=== PATIENT | female | born 1970 | race Caucasian/White ===

== ENCOUNTER 2020-01-22 06:30 | Observation (INO) | payer OTHER ==
[2020-01-22] MEDS ORDERED: ASPIRIN 81 MG PO STA (06:42)
[2020-01-22] MEDS ORDERED: NITROGLYCERIN OINT 1 INCH/GM PACKET TOPICAL STA (06:50)
--- NOTE | 2020-01-22 06:58 | ED ---
Chest Pain HPI - General Chief Complaint: Chest Pain Stated Complaint: Chest Pain Time Seen by Provider: 01/22/20 06:35 Source: patient, RN notes reviewed Mode of arrival: ambulatory Limitations: no limitations - History of Present Illness Initial Comments: This a 49-year-old female presents emergency Department chief complaint of chest pain. Patient states started around 4 AM this morning when she woke up. Patient states his pain is different and she normally has. She states she does have some chest discomfort over some she had a cardiac arrest in July 2018. Patient states that she initially went to the hospital at that time for chest pain and high blood pressure. She was sent home and subsequently pancreatic wrist. Patient states that she did have a cardiac cath in which he found no significant cause for her cardiac arrest. Patient disposition is a daily smoker, history of hypertension. She did take her blood pressure medication this morning. Patient denies any significant leg swelling, leg pain denies any fevers or chills. Patient states that she has some nausea with VOMITING. No diaphoresis. Denies any back pain. - Related Data Home Medications Medication Instructions Recorded Confirmed Aspirin EC [Ecotrin Low Dose] 81 mg PO DAILY 01/22/20 01/22/20 Atorvastatin [Lipitor] 10 mg PO DAILY 01/22/20 01/22/20 Carvedilol [Coreg] 3.125 mg PO BID 01/22/20 01/22/20 Loratadine [Claritin] 10 mg PO DAILY 01/22/20 01/22/20 lisinopriL [Zestril] 20 mg PO DAILY 01/22/20 01/22/20 Allergies Allergy/AdvReac Type Severity Reaction Status Date / Time No Known Allergies Allergy Verified 01/22/20 07:57 Review of Systems ROS Statement: Those systems with pertinent positive or pertinent negative responses have been documented in the HPI. ROS Other: All systems not noted in ROS Statement are negative. EKG Findings - EKG Comments: EKG Findings:: EKG performed at 6:44 normal sinus rhythm rate of 77 VA 162 QRS 78 QT/QTC 366/414 was noted Q waves in V1 and V2 Past Medical History Past Medical History: Hypertension Additional Past Medical History / Comment(s): cardiac arrest 2019. History of Any Multi-Drug Resistant Organisms: None Reported Past Surgical History: Cholecystectomy, Orthopedic Surgery Past Psychological History: No Psychological Hx Reported Smoking Status: Current every day smoker Past Alcohol Use History: Occasional Past Drug Use History: None Reported General Exam Limitations: no limitations General appearance: alert, in no apparent distress Head exam: Present: atraumatic, normocephalic, normal inspection Eye exam: Present: normal appearance, PERRL, EOMI. Absent: scleral icterus, conjunctival injection, periorbital swelling ENT exam: Present: normal exam, normal oropharynx, mucous membranes moist, TM's normal bilaterally Neck exam: Present: normal inspection, full ROM. Absent: tenderness, meningismus, lymphadenopathy Respiratory exam: Present: normal lung sounds bilaterally. Absent: respiratory distress, wheezes, rales, rhonchi, stridor Cardiovascular Exam: Present: regular rate, normal rhythm, normal heart sounds. Absent: systolic murmur, diastolic murmur, rubs, gallop, clicks GI/Abdominal exam: Present: soft, normal bowel sounds. Absent: distended, tenderness, guarding, rebound, rigid Back exam: Absent: CVA tenderness (R), CVA tenderness (L) Neurological exam: Present: alert, oriented X3 Skin exam: Present: warm, dry, intact, normal color. Absent: rash Course Vital Signs 01/22/20 01/22/20 06:34 07:00 Temperature 97.7 F Pulse Rate 84 84 Respiratory 18 16 Rate Blood Pressure 142/95 133/89 O2 Sat by Pulse 100 97 Oximetry Chest Pain [facility] EKG showed evidence of Q waves. Patient does have a Cardoza history including cardiac arrest, smoking and hypertension. Patient will be admitted for cardiac obs at this point repeat troponins and started on heparin. Disposition Clinical Impression: Chest pain Disposition: ADMITTED IP TO THIS HOSP Condition: Fair Referrals: None,Stated [Primary Care Provider] - 1-2 days
[2020-01-22 07:18] LABS: Basophils # (A) 0.1 k/uL (0-0.2); Basophils % (A) 1 %; Eosinophils # (A) 0.2 k/uL (0-0.7); Eosinophils % (A) 2 %; HCT 40.4 % (34.0-46.0); HGB 12.6 gm/dL (11.4-16.0); Hypochromasia Slight; Lymphocytes # (A) 1.5 k/uL (1.0-4.8); Lymphocytes % (A) 18 %; MCH 26.3 pg (25.0-35.0); MCHC 31.3 g/dL (31.0-37.0); Mean Platelet Volume 8.4; Monocytes # (A) 0.5 k/uL (0-1.0); Monocytes % (A) 6 %; Neutrophils # (A) 5.8 k/uL (1.3-7.7); Neutrophils % (A) 71 %; Platelet Count 312 k/uL (150-450); RBC 4.81 m/uL (3.80-5.40); WBC 8.2 k/uL (3.8-10.6)
[2020-01-22 07:26] LABS: INR 0.9 (<1.2); Partial Thromboplastin Time 23.7 sec (22.0-30.0); Prothrombin Time 9.4 sec (9.0-12.0)
--- NOTE | 2020-01-22 07:26 | XR ---
EXAMINATION TYPE: XR chest 2V DATE OF EXAM: 01/22/2020 COMPARISON: NONE TECHNIQUE: PA and lateral views submitted. HISTORY: Chest pain FINDINGS: The lungs are clear and there is no pneumothorax, pleural effusion, or focal pneumonia. No overt shannon lure. Tiny nodule bilateral upper lobe may be related to tiny granuloma. Calcification along the righ t humeral head can be associated with calcific tendinosis and there is sclerosis of the left humeral head likely related to bone island. Hypertrophic change of the vertebral column. Mild hyperexpansion correlate for COPD or asthma. IMPRESSION: 1. No acute process. Multiple tiny nodules within bilateral upper lobes most likely on the basis of g ranuloma. Short-term follow-up CT chest recommended.
[2020-01-22 07:27] LABS: ALT 64 U/L (4-34); AST 69 U/L (14-36); African American GFR (CKD) >90 (>60 ml/min/1.73 sqM); Albumin 4.3 g/dL (3.5-5.0); Alkaline Phosphatase 57 U/L (38-126); Anion Gap 8 mmol/L; Blood Urea Nitrogen 8 mg/dL (7-17); Calcium 8.9 mg/dL (8.4-10.2); Carbon Dioxide 27 mmol/L (22-30); Chloride 104 mmol/L (98-107); Glucose 144 mg/dL (74-99); Non-African American GFR(CKD) >90 (>60 ml/min/1.73 sqM); Potassium 4.5 mmol/L (3.5-5.1); Sodium 139 mmol/L (137-145); Total Bilirubin 0.5 mg/dL (0.2-1.3); Total Protein 7.2 g/dL (6.3-8.2)
[2020-01-22] MEDS ORDERED: HEPARIN SODIUM,PORCINE 5,000 UNIT/ML 1 ML VIAL IV PRN (08:24)
[2020-01-22] MEDS ORDERED: NITROGLYCERIN SL TABS 0.4 MG TAB SUBLINGUAL PRN (08:24)
[2020-01-22] MEDS ORDERED: HEPARIN SODIUM,PORCINE 5,000 UNIT/ML 1 ML VIAL IV ONE (08:24)
[2020-01-22] MEDS ORDERED: HEPARIN SOD,PORK IN 0.45% NACL 25,000 UNIT in 0.45% NACL 1 250ML.BAG IV SCH (08:30)
--- NOTE | 2020-01-22 13:31 | P.CRDCN ---
<Radha Patterson - Last Filed: 01/22/20 13:10> History of Present Illness History of present illness: HISTORY OF PRESENTING ILLNESS This is a pleasant 49-year-old female past medical history significant for cardiac arrest in July 2018 with multiple shocks according to the patient. 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 She then states she was in a coma for 2 weeks and immediately upon discharge she moved to [place] and established with a activities therapist there by the name of Dr. Braden. About 4 weeks ago she moved back to [place]. According to her up until this morning she has been asymptomatic from a cardiac perspective. This morning she woke up and felt a discomfort in her chest described as a pressure. It lasted around 30 minutes. There was no radiation to the arm, back, neck or jaw. She denies associated shortness of breath, dizziness, palpitations, nausea, vomiting or diaphoresis. Her symptoms have subsided. DIAGNOSTICS EKG reveals sinus mechanism with poor R-wave progression. Chest xray multiple tiny nodules likely granulomatous. Laboratory reviewed, CBC unremarkable, sodium 139, potassium 4.5, creatinine 0.5, AST 69, ALT 64, cardiac enzymes negative 2 and an T proBNP 68. Current cardiac medications include lisinopril 20 mg daily, atorvastatin 20 mg daily, aspirin 81 mg daily and coronary 3.125 mg twice a day. REVIEW OF SYSTEMS At the time of my exam: CONSTITUTIONAL: Denies fever or chills. CARDIOVASCULAR: Denies chest pain, shortness of breath, orthopnea, PND or palpitations. RESPIRATORY: Denies cough. GASTROINTESTINAL: Denies abdominal pain, diarrhea, constipation, nausea or vomiting. MUSCULOSKELETAL: Denies myalgias. NEUROLOGIC: Denies numbness, tingling or weakness. ENDOCRINE: Denies fatigue, weight change, polydipsia or polyurina. GENITOURINARY: Denies burning, hematuria or urgency with micturation. HEMATOLOGIC: Denies history of anemia or bleeding. PHYSICAL EXAMINATION Blood pressure 149/83 heart rate 88 afebrile and maintaining oxygen saturation on room air. CONSTITUTIONAL: No apparent distress. HEENT: Head is normocephalic. Pupils are equal, round. Sclerae anicteric. Mucous membranes of the mouth are moist. No JVD. No carotid bruit. CHEST EXAMINATION: Lungs are clear to auscultation. No chest wall tenderness is noted on palpation or with deep breathing. HEART EXAMINATION: Regular rate and rhythm. S1, S2 heard. Soft systolic ejection murmur at the base, no gallops or rub. ABDOMEN: Soft, nontender. Positive bowel sounds. EXTREMITIES: 2+ peripheral pulses, no lower extremity edema and no calf tenderness. NEUROLOGIC EXAMINATION: Patient is awake, alert and oriented x3. ASSESSMENT Chest pain, atypical for angina. Hypertension Dyslipidemia Chronic nicotine dependence History of cardiac arrest, exact details unavailable PLAN Request records from [facility] in [place] from July 2018. Obtain 2D echocardiogram and doppler study to assess cardiac structure and function. Continue to obtain serial enzymes to rule out an acute event. Resume coreg, atorvastatin, lisinopril and aspirin as previously ordered. Further recommendations to follow. Thank you kindly for this consultation. Nurse Practitioner note has been reviewed, I agree with a documented findings and plan of care. Patient was seen and examined. Past Medical History Past Medical History: Chest Pain / Angina, Hypertension Additional Past Medical History / Comment(s): Pt states went to ER with chest pain/HTN and sent home then went to work and had a cardiac arrest in 2019/pt states she had echo and cardiac cath-all normal-no cause ever found for arrest, sinus issues. History of Any Multi-Drug Resistant Organisms: None Reported Past Surgical History: Back Surgery, Cholecystectomy, Heart Catheterization, Orthopedic Surgery, Tubal Ligation Additional Past Surgical History / Comment(s): 2019 normal cardiac cath, L$-L% discectomy Smoking Status: Current every day smoker - Past Family History Father Family Medical History: Cancer Additional Family Medical History / Comment(s): Father at the age of 37 yrs from cancer from agent orange exposure in [place] per pt. Mother Family Medical History: Congestive Heart Failure (CHF), COPD, Myocardial Infarction ([place]) Additional Family Medical History / Comment(s): Mother had a [place] at the age of 60 yrs. She is 67yrs old. Medications and Allergies Home Medications Medication Instructions Recorded Confirmed Type Aspirin EC [Ecotrin Low Dose] 81 mg PO DAILY 01/22/20 01/22/20 History Atorvastatin [Lipitor] 10 mg PO DAILY 01/22/20 01/22/20 History Carvedilol [Coreg] 3.125 mg PO BID 01/22/20 01/22/20 History Loratadine [Claritin] 10 mg PO DAILY 01/22/20 01/22/20 History lisinopriL [Zestril] 20 mg PO DAILY 01/22/20 01/22/20 History Levofloxacin [Levaquin] 500 mg PO Q24H #7 tab 01/23/20 Rx predniSONE See Taper PO DIRECTED #30 tab 01/23/20 Rx Allergies Allergy/AdvReac Type Severity Reaction Status Date / Time No Known Allergies Allergy Verified 01/22/20 07:57 Physical Exam Vitals: Vital Signs Temp Pulse Pulse Resp BP BP Pulse Ox 01/22/20 10:12 98 F 88 18 149/83 98 01/22/20 09:28 98.4 F 71 18 132/94 95 01/22/20 07:00 84 16 133/89 97 01/22/20 06:34 97.7 F 84 18 142/95 100 Intake and Output 01/21/20 01/22/20 01/22/20 22:59 06:59 14:59 Intake Total 240 Balance 240 Intake: Oral 240 Other: Weight 67.132 kg 67.132 kg Results 01/22/20 07:09 01/22/20 07:09 Cardiac Enzymes 01/22/20 01/22/20 01/22/20 Range/Units 07:09 07:09 10:39 AST 69 H (14-36) U/L Troponin I <0.012 <0.012 (0.000-0.034) ng/mL Coagulation 01/22/20 Range/Units 07:09 PT 9.4 (9.0-12.0) sec APTT 23.7 (22.0-30.0) sec CBC 01/22/20 Range/Units 07:09 WBC 8.2 (3.8-10.6) k/uL RBC 4.81 (3.80-5.40) m/uL Hgb 12.6 (11.4-16.0) gm/dL Hct 40.4 (34.0-46.0) % Plt Count 312 (150-450) k/uL Comprehensive Metabolic Panel 01/22/20 Range/Units 07:09 Sodium 139 (137-145) mmol/L Potassium 4.5 (3.5-5.1) mmol/L Chloride 104 (98-107) mmol/L Carbon Dioxide 27 (22-30) mmol/L BUN 8 (7-17) mg/dL Creatinine 0.50 L (0.52-1.04) mg/dL Glucose 144 H (74-99) mg/dL Calcium 8.9 (8.4-10.2) mg/dL AST 69 H (14-36) U/L ALT 64 H (4-34) U/L Alkaline Phosphatase 57 (38-126) U/L Total Protein 7.2 (6.3-8.2) g/dL Albumin 4.3 (3.5-5.0) g/dL Current Medications Generic Name Dose Route Start Last Admin Trade Name Freq PRN Reason Stop Dose Admin Aspirin 325 mg 01/23/20 09:00 Aspirin PO DAILY KRISTINA Heparin Sodium (Porcine) 0 unit 01/22/20 08:24 Heparin IV Q6HR PRN Low PTT Protocol Nitroglycerin 0.4 mg 01/22/20 08:24 Nitrostat SUBLINGUAL Q5M PRN Chest Pain Intake and Output 01/21/20 01/22/20 01/22/20 22:59 06:59 14:59 Intake Total 240 Balance 240 Intake: Oral 240 Other: Weight 67.132 kg 67.132 kg Patient Weight 01/23/20 06:59 Weight 67.132 kg 01/22/20 07:09 01/22/20 07:09 <John Coles - Last Filed: 01/26/20 14:56> Results 01/23/20 06:08 01/23/20 06:08 01/23/20 06:08 01/23/20 06:08
[2020-01-22] MEDS ORDERED: HYDROcodone/APAP 5-325MG 1 EACH TAB PO PRN (14:46)
[2020-01-22] MEDS ORDERED: ALPRAZolam 0.25 MG TAB PO PRN (14:46)
[2020-01-22] MEDS ORDERED: HYDROmorphone 0.5 MG/0.5 ML SYRINGE IVP PRN (14:46)
[2020-01-22] MEDS ORDERED: TEMAZEPAM 15 MG CAP PO PRN (14:46)
--- NOTE | 2020-01-22 15:01 | CT ---
EXAMINATION TYPE: CT chest wo con DATE OF EXAM: 01/22/2020 COMPARISON: Chest x-ray earlier today HISTORY: cough, chest tightness CT DLP: 503 mGycm. Automated Exposure Control for Dose Reduction was Utilized. TECHNIQUE: CT scan of the thorax is performed without IV contrast. FINDINGS: LUNGS: There are multifocal areas of groundglass nodularity throughout the upper and lower lungs bila terally. There is background mild underlying edematous change suspected with several small calcified nodules 4 granulomas scattered throughout bilateral lungs greater in the upper lungs. Few small nonca lcified micronodules, for reference right lower lobe posteriorly axial image 39. No pleural effusion or pneumothorax seen bilaterally. MEDIASTINUM: Lack of IV contrast is noted to limit evaluation for mediastinal and especially hilar a denopathy. There are no definitive greater than 1 cm hilar or mediastinal lymph nodes. No cardiomeg eliseo or pericardial effusion is seen. Coronary artery calcification proximal to mid LAD axial image 28 noted. Mild calcification at level of aortic valve. OTHER: Liver are diffusely low dense consistent with mild diffuse fatty infiltration. Cholecystectomy clips are seen. IMPRESSION: 1. Confirmation of scattered small bilateral calcified nodules or granulomas presumed product of old granulomatous disease. 2. Multifocal areas of groundglass opacity bilaterally likely reflecting multifocal alveolar edema gi colt patient's history of cardiac arrest. Areas of underlying acute infiltrate cannot be excluded. Cor relate clinically. Mild underlying emphysematous change noted.
--- NOTE | 2020-01-22 15:51 | HP ---
HISTORY AND PHYSICAL CHIEF COMPLAINT: Chest pain. HISTORY OF PRESENT ILLNESS: This 49-year-old woman with a past medical history of multiple medical problems, including chest pain, history of hypertension, history of back surgery, cholecystomy, not being followed by a primary physician in the outpatient setting, recently moved back to [place] from [place]. The patient was having chest pain yesterday at 4:00 which was felt in the anterior part of the chest, mild to moderate in intensity, which was a pressure type of squeezing pain. The patient came to [facility] and was admitted for further evaluation and treatment. EKG showed nonspecific ST-T changes. Troponins were negative. AST and ALT were elevated. Patient also has a history of cardiac arrest last year and the patient apparently had chest pain after going home. Patient had cardiac arrest and after bystander resuscitation, patient was shocked and patient was in the hospital for more than 2 weeks in the ICU. The patient also had cardiac catheterization at that time. Cardiac catheterization was normal. Apparently the ejection fraction was found to be 30% and non-ischemic cardiomyopathy was suspected at that time. There is no history of any fever, rigor or chills. No history of headache, loss of consciousness, seizures at this time. PAST MEDICAL HISTORY: History of cardiac arrest, possibly cardiomyopathy, hypertension, history of chest pain, history of cardiac catheterization. HOME MEDICATIONS: 1. Claritin 10 mg daily. 2. Coreg 3.125 mg b.i.d. 3. Ecotrin 81 mg daily. 4. Zestril 20 mg daily. 5. Lipitor 10 mg daily. ALLERGIES: NONE. FAMILY HISTORY: History of cancer in the family and Agent [place] exposure. SOCIAL HISTORY: History of alcohol. REVIEW OF SYSTEMS: ENT: No diminished hearing. No diminished vision. CARDIOVASCULAR SYSTEM: As mentioned earlier. RESPIRATORY SYSTEM: As mentioned earlier. GI: No nausea, vomiting. : No dysuria or retention. NERVOUS SYSTEM: No numbness, weakness. ALLERGY/IMMUNOLOGY: No asthma, hayfever. MUSCULOSKELETAL: As mentioned earlier. HEMATOLOGY/ONCOLOGY: No history of anemia. ENDOCRINE: No history of diabetes, hypothyroidism. CONSTITUTIONAL: As mentioned earlier. DERMATOLOGY: Negative. RHEUMATOLOGY: Negative. PSYCHIATRY: As mentioned earlier. PHYSICAL EXAMINATION: Patient alert and oriented x3. Pulse is 88, blood pressure 149/83, respiration 18, temperature 98 degrees, pulse ox 98% on room air. HEENT: Conjunctivae normal. NECK: No jugular venous distention. CARDIOVASCULAR SYSTEM: S1, S2 muffled. RESPIRATORY SYSTEM: Breath sounds diminished at the bases. No rhonchi. No crackles. ABDOMEN: Soft, non-tender. No mass palpable. LEGS: No edema. No swelling. NERVOUS SYSTEM: Higher functions as mentioned earlier. Moves all 4 limbs. No focal motor or sensory deficit. LYMPHATICS: No lymph node palpable in neck, axillae or groin. SKIN: No ulcer, rash, bleeding. JOINTS: No active deforming arthropathy. LABS: CBC within normal limits. Glucose 144. AST 69, ALT 464. Chest x-ray and EKG reviewed personally. Troponin is noted. ASSESSMENT: 1. Chest pain, possible unstable angina. 2. History of previous cardiac arrest and possible ischemic cardiomyopathy, ejection fraction 30%, with chronic systolic dysfunction. 3. Increased AST and ALT. 4. History of previous EtOH apparently, per old records. 5. Increased random blood sugar. 6. History of chest pain. 7. Hypertension history. 8. History of back surgery. 9. Cholecystectomy. 10.History of continued ongoing nicotine dependence. RECOMMENDATIONS AND DISCUSSION: In this 49-year-old woman who presented with multiple complex medical issues, at this time we will continue to monitor. Otherwise, cardiology consultation. The patient is started on Coreg. Will obtain 2D echo with Doppler. I would also recommend resuming the home medications. Possible EP study as an outpatient. Otherwise, will follow the patient closely with Cardiology. I would recommend that the patient follow up with Dr. Chou as her primary physician. CT of the chest was also recommended. Prognosis guarded. I would also recommend UA with micro and drug screen. MMODL / IJN: [id number] /
[2020-01-22 16:24] LABS: Amphetamine Screen,Urine Not Detected (NotDetected); Barbiturate Screen,Urine Not Detected (NotDetected); Benzodiazepines Screen,Urine Not Detected (NotDetected); Cocaine Screen,Urine Not Detected (NotDetected); Methadone Screen, Urine Not Detected (NotDetected); Opiate Screen,Urine Not Detected (NotDetected); Oxycodone Screen, Urine Not Detected (NotDetected); Phencyclidine Screen,Urine Not Detected (NotDetected); Tricyclic Antidepressant,Urine Not Detected (NotDetected); Urn Cannabinoid Scrn Not Detected (NotDetected)
[2020-01-22 16:25] LABS: Amorphous Sediment,Urine Rare /hpf; Appearance,Urine Clear (Clear); Bacteria,Urine Rare /hpf; Bilirubin,Urine Negative (Negative); Blood,Urine Small (Negative); Color,Urine Colorless; Glucose,Urine (UA) Negative (Negative); Ketones,Urine Negative (Negative); Leukocyte Esterase,Urine Negative (Negative); Nitrite,Urine Negative (Negative); PH, Urine 6.5 (5.0-8.0); Protein,Urine Negative (Negative); RBC,Urine 3 /hpf (0-5); Specific Gravity,Urine 1.003 (1.001-1.035); Squamous Epithelial Cell,Urine 2 /hpf (0-4); Urobilinogen,Urine <2.0 mg/dL (<2.0); WBC,Urine 1 /hpf (0-5)
[2020-01-22] MEDS: carvediloL 3.125 MG TAB PO SCH (20:01)
[2020-01-22] MEDS: NICOTINE 14MG/24HR PATCH TRANSDERM SCH (20:01)
[2020-01-23 06:27] LABS: Basophils % (A) 1 %; Eosinophils # (A) 0.2 k/uL (0-0.7); Eosinophils % (A) 3 %; HCT 40.6 % (34.0-46.0); HGB 12.3 gm/dL (11.4-16.0); Hypochromasia Moderate; Lymphocytes # (A) 1.7 k/uL (1.0-4.8); Lymphocytes % (A) 23 %; MCH 25.8 pg (25.0-35.0); MCHC 30.3 g/dL (31.0-37.0); Mean Platelet Volume 7.8; Monocytes # (A) 0.5 k/uL (0-1.0); Monocytes % (A) 7 %; Neutrophils # (A) 4.5 k/uL (1.3-7.7); Neutrophils % (A) 63 %; Platelet Count 277 k/uL (150-450); RBC 4.78 m/uL (3.80-5.40); RDW 13.9 % (11.5-15.5); WBC 7.1 k/uL (3.8-10.6)
[2020-01-23 06:41] LABS: ALT 45 U/L (4-34); AST 39 U/L (14-36); African American GFR (CKD) >90 (>60 ml/min/1.73 sqM); Albumin 3.9 g/dL (3.5-5.0); Alkaline Phosphatase 49 U/L (38-126); Anion Gap 5 mmol/L; Blood Urea Nitrogen 7 mg/dL (7-17); Carbon Dioxide 26 mmol/L (22-30); Chloride 106 mmol/L (98-107); Cholesterol 134 mg/dL (<200); Glucose 96 mg/dL (74-99); HDL Cholesterol 91 mg/dL (40-60); LDL Cholesterol,Calculated 33 mg/dL (0-99); Non-African American GFR(CKD) >90 (>60 ml/min/1.73 sqM); Potassium 4.6 mmol/L (3.5-5.1); Sodium 137 mmol/L (137-145); Total Bilirubin 0.5 mg/dL (0.2-1.3); Total Protein 6.6 g/dL (6.3-8.2); Triglycerides 48 mg/dL (<150)
[2020-01-23 07:04] LABS: Erythrocyte Sedimentation Rate 9 mm/hr (0-20)
[2020-01-23 07:15] LABS: C Reactive Protein <5.0 mg/L (<10.0)
[2020-01-23] MEDS ORDERED: PANTOPRAZOLE 40 MG TABLET PO SCH (07:30)
[2020-01-23 07:50] VITALS: RESP 16; TEMP 98.1
[2020-01-23] MEDS: carvediloL 3.125 MG TAB PO SCH (07:58)
[2020-01-23] MEDS: NICOTINE 14MG/24HR PATCH TRANSDERM SCH (07:58)
[2020-01-23] MEDS ORDERED: lisinopriL 20 MG TAB PO SCH (09:00)
[2020-01-23] MEDS ORDERED: LORATADINE 10 MG TAB PO SCH (09:00)
[2020-01-23] MEDS ORDERED: ATORVASTATIN 10 MG TAB PO SCH (09:00)
[2020-01-23] MEDS ORDERED: ASPIRIN 325 MG TAB PO SCH (09:00)
[2020-01-23] MEDS ORDERED: ASPIRIN 81 MG PO SCH (09:00)
[2020-01-23 09:06] VITALS: BP 134/85; PULSE 90
[2020-01-23] MEDS ORDERED: predniSONE 20 MG TAB PO STA (11:43)
[2020-01-23] MEDS ORDERED: LEVOFLOXACIN 500 MG TAB PO SCH (12:00)
--- NOTE | 2020-01-23 12:40 | ECHOF ---
Referral Reason:chest pain, hx cardiac arrest MEASUREMENTS -------- HEIGHT: 152.4 cm WEIGHT: 67.1 kg BP: IVSd: 1.0 cm (0.6 - 1.1) LVIDd: 4.2 cm (3.9 - 5.3) LVPWd: 1.3 cm (0.6 - 1.1) IVSs: 1.3 cm LVIDs: 2.8 cm LVPWs: 1.6 cm LA Diam: 4.5 cm (2.7 - 3.8) RVIDd: 3.7 cm (< 3.3) LAESV Index (A-L): 25.83 ml/m Ao Diam: 2.7 cm (2.0 - 3.7) EPSS: 0.4 cm MV E Anirudh: 0.88 m/s MV DecT: 211 ms MV A Anirudh: 0.92 m/s MV E/A Ratio: 0.96 RAP: 5.00 mmHg RVSP: 39.79 mmHg MV EF SLOPE: 107.47 mm/s (70 - 150) MV EXCURSION: 18.05 mm (> 18.000) FINDINGS -------- Sinus rhythm. This was a techncally difficult study with suboptimal views, , Definity utilized for enhancement of i mages. The left ventricular size is normal. Overall left ventricular systolic function is low-normal with, an EF between 50 - 55 %. The right ventricle is normal in size. The left atrium is mildly dilated. The right atrial size is normal. There is mild aortic valve sclerosis. There is no evidence of aortic regurgitation. Mild mitral annular calcification present. Mild mitral regurgitation is present. No regurgitation noted There is mild pulmonary hypertension. There is no pulmonic regurgitation present. The aortic root size is normal. There is no pericardial effusion. CONCLUSIONS -------- 1. Sinus rhythm. 2. This was a techncally difficult study with suboptimal views, , Definity utilized for enhancement o f images. 3. The left ventricular size is normal. 4. Overall left ventricular systolic function is low-normal with, an EF between 50 - 55 %. 5. The right ventricle is normal in size. 6. The left atrium is mildly dilated. 7. The right atrial size is normal. 8. There is mild aortic valve sclerosis. 9. Mild mitral annular calcification present. 10. Mild mitral regurgitation is present. 11. No regurgitation noted 12. There is mild pulmonary hypertension. 13. There is no pulmonic regurgitation present. SURGICAL CLINICAL REVIEWER: Cecy Angulo RDCS
--- NOTE | 2020-01-23 13:11 | P.DS ---
Providers Date of admission: 01/22/20 08:25 Expected date of discharge: 01/23/20 Attending physician: Remi Nevarez Consults: 01/22/20 08:24 Consult Physician Urgent Consulting Provider: Nathaniel Vazquez Consult Reason/Comments: chest pain Do you want consulting provider notified?: Yes 01/22/20 16:53 Consult Physician Routine Consulting Provider: Flavio Armstrong Consult Reason/Comments: abnormal chest ct Do you want consulting provider notified?: Yes Primary care physician: Stated None Hospital Course: Mrs. Snow is a 49-year-old female with a past medical history of multiple medical problems, including hypertension, history of back surgery, cholecystectomy and recently moved to [place] from [facility]. Patient was admitted with chest pain that was squeezing in nature through the ER. EKG showed nonspecific ST and T wave changes. Troponins were negative. AST is slightly elevated. Patient had a history of cardiac arrest last year and apparently had chest pain after going home. Patient had cardiac arrest after bystander recess dictated and patient was shocked and was hospitalized for more than 2 weeks was in the ICU. Eventually patient had a cardiac catheterization that was normal, echo done showed ejection fraction to be around 30% and nonischemic cardiomyopathy was suspected at that time. Cardiology has seen the patient, reviewed the records from [facility]. Patient suffered a V. fib arrest secondary to nonischemic suspected alcohol- induced cardiomyopathy. She was admitted on a balloon pump secondary to cardiogenic shock. At that time echocardiogram showed ejection fraction of 30%. And her cardiac catheterization revealed normal coronary arteries. Eventually patient had CT of the chest showing scattered small bilateral calcified nodules or granulomas and multifocal areas of groundglass opacities bilaterally reflecting multifocal alveolar edema given patient's history of cardiac arrest. Areas of underlying acute infiltrate could not be excluded. So pulmonary Dr. Armstrong has evaluated the patient and recommended levofloxacin and the tapering dose of prednisone. DISCHARGE DIAGNOSIS Atypical chest pain History of previous cardiac arrest secondary to V. 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 Mild transaminitis History of previous alcohol use Hyperglycemia Hypertension Hyperlipidemia History of back surgery Nicotine dependence PLAN: Patient Condition at Discharge: Fair Plan - Discharge Summary Discharge Rx Participant: No New Discharge Prescriptions: New Levofloxacin [Levaquin] 500 mg PO Q24H #7 tab predniSONE See Taper PO DIRECTED #30 tab Continue Aspirin EC [Ecotrin Low Dose] 81 mg PO DAILY lisinopriL [Zestril] 20 mg PO DAILY Atorvastatin [Lipitor] 10 mg PO DAILY Loratadine [Claritin] 10 mg PO DAILY Carvedilol [Coreg] 3.125 mg PO BID Discharge Medication List Aspirin EC [Ecotrin Low Dose] 81 mg PO DAILY 01/22/20 [History] Atorvastatin [Lipitor] 10 mg PO DAILY 01/22/20 [History] Carvedilol [Coreg] 3.125 mg PO BID 01/22/20 [History] Loratadine [Claritin] 10 mg PO DAILY 01/22/20 [History] lisinopriL [Zestril] 20 mg PO DAILY 01/22/20 [History] Levofloxacin [Levaquin] 500 mg PO Q24H #7 tab 01/23/20 [Rx] predniSONE See Taper PO DIRECTED #30 tab 01/23/20 [Rx] Follow up Appointment(s)/Referral(s): John Coles MD [STAFF PHYSICIAN] - 02/04/20 1:30 pm (patient will see Izabella Morin) None,Stated [Primary Care Provider] - 1-2 days Flavio Armstrong MD [STAFF PHYSICIAN] - 3 Weeks Patient Instructions/Handouts: Chest Pain (DC), How to Stop Smoking (DC)
--- NOTE | 2020-01-23 13:31 | P.CNPUL ---
History of Present Illness Consult date: 01/23/20 Reason for consult: abnormal CXR/CT History of present illness: This is a 49-year-old female patient with history of nonischemic cardiomyopathy who had a bout of cardiac arrest back in July 2018 requiring shocks and CPR and defibrillation. She survived that event and following that she went to [place] and she is back to [place] where she is living locally. She came in yesterday because of chest discomfort that lasted around 30 minutes. No radiation to the arm back jaw in the neck. No significant cough sputum production chest vessel wheezing. She has had a previous echocardiogram that showed a ejection fraction of 30%. Her cardiac catheterization was of a normal coronaries. Her previous cardiac arrest was V. fib arrest related to nonischemic cardiomyopathy. She was seen by cardiology during this current visit. Her EKG showing a normal sinus mechanism with a poor R wave progression. The CBC was within normal limits. Creatinine was 0.5. ProBNP was 68. 2 sets of cardiac enzymes were negative. Chest x-ray showed some tiny nodularities and following that the patient had a CAT scan of the chest showed multifocal areas of groundglass nodularity throughout the upper and lower lung robins along with some background COPD. There is some small calcified nodules and granulomas bilaterally and some few smaller noncalcified nodular changes. No evidence of an ascending lymphadenopathy. The patient denies having any exposure to industrial chemicals more material. She has no exposure to birds pigeons or any other birds products. She doesn't have any hobbies where she undergoes gardening or farming. She smokes c igarettes. No history of any sarcoidosis. No history of any connective tissue disease. No recurrent pneumonias no aspiration. No history of any malignancy. Furthermore, she has no active respirator distress at this point in time her pulse ox around 97% on room air. No intake of any drugs or medications that can cause potential lung toxicity. Review of Systems All systems: negative (Nonspecific chest pain is described earlier in my dictation note. No swelling lower extremity is in no fever. No chills. No hemoptysis. No exposure to coronary virus Covid 19 infection.) Past Medical History Past Medical History: Chest Pain / Angina, Hypertension Additional Past Medical History / Comment(s): Pt states went to ER with chest pain/HTN and sent home then went to work and had a cardiac arrest in 2019/pt states she had echo and cardiac cath-all normal-no cause ever found for arrest, sinus issues. History of Any Multi-Drug Resistant Organisms: None Reported Past Surgical History: Back Surgery, Cholecystectomy, Heart Catheterization, Orthopedic Surgery, Tubal Ligation Additional Past Surgical History / Comment(s): 2019 normal cardiac cath, L$-L% discectomy Smoking Status: Current every day smoker - Past Family History Father Family Medical History: Cancer Additional Family Medical History / Comment(s): Father at the age of 37 yrs from cancer from agent orange exposure in [place] per pt. Mother Family Medical History: Congestive Heart Failure (CHF), COPD, Myocardial Infarction ([place]) Additional Family Medical History / Comment(s): Mother had a RI at the age of 60 yrs. She is 67yrs old. Medications and Allergies Home Medications Medication Instructions Recorded Confirmed Type Aspirin EC [Ecotrin Low Dose] 81 mg PO DAILY 01/22/20 01/22/20 History Atorvastatin [Lipitor] 10 mg PO DAILY 01/22/20 01/22/20 History Carvedilol [Coreg] 3.125 mg PO BID 01/22/20 01/22/20 History Loratadine [Claritin] 10 mg PO DAILY 01/22/20 01/22/20 History lisinopriL [Zestril] 20 mg PO DAILY 01/22/20 01/22/20 History Levofloxacin [Levaquin] 500 mg PO Q24H #7 tab 01/23/20 Rx predniSONE See Taper PO DIRECTED #30 tab 01/23/20 Rx Allergies Allergy/AdvReac Type Severity Reaction Status Date / Time No Known Allergies Allergy Verified 01/22/20 07:57 Physical Exam Vitals: Vital Signs Temp Pulse Resp BP Pulse Ox 01/23/20 09:06 90 134/85 01/23/20 08:44 16 01/23/20 07:49 98.1 F 75 16 165/103 94 L 01/23/20 03:00 97.8 F 87 18 159/118 97 01/22/20 19:57 85 18 01/22/20 19:49 97.7 F 85 18 118/73 98 01/22/20 15:00 98.1 F 71 16 151/95 98 Intake and Output 01/22/20 01/23/20 01/23/20 22:59 06:59 14:59 Intake Total 400 290 Balance 400 290 Intake: Oral 400 290 Other: Voiding Method Toilet Toilet Toilet # Voids 1 2 # Bowel Movements 0 The patient appeared well nourished and normally developed. Vital signs as documented. Head exam is unremarkable. No scleral icterus or corneal arcus noted. Neck is without jugular venous distension, thyromegaly, or carotid bruits. Carotid upstrokes are brisk bilaterally. Lungs are clear to auscultation and percussion. Cardiac exam reveals the PMI to be normally sized and situated. Rhythm is regular. First and second heart sounds normal. No murmurs, rubs or gallops. Abdominal exam reveals normal bowel sounds, no masses, no organomegaly and no aortic enlargement. Extremities are nonedematous and both femoral and pedal pulses are normal.Examination of the skin revealed no evidence of significant rashes, suspicious appearing nevi or other concerning lesions.Neurologically, the patient is awake and alert and the patient does not have any focal neurological deficit. Cranial nerves are essentially intact. Results - Laboratory Findings CBC and BMP: 01/23/20 06:08 01/23/20 06:08 PT/INR, D-dimer PT 9.4 sec (9.0-12.0) 01/22/20 07:09 INR 0.9 (<1.2) 01/22/20 07:09 Abnormal lab findings: Abnormal Labs 01/22/20 01/22/20 01/23/20 07:09 15:51 06:08 MCHC Creatinine 0.50 L 0.45 L Glucose 144 H AST 69 H 39 H ALT 64 H 45 H HDL Cholesterol 91 H Urine Blood Small H Amorphous Sediment Rare H Urine Bacteria Rare H 01/23/20 06:08 MCHC 30.3 L Creatinine Glucose AST ALT HDL Cholesterol Urine Blood Amorphous Sediment Urine Bacteria - Diagnostic Findings Chest x-ray: image reviewed CT scan - chest: image reviewed Assessment and Plan Plan: 1 nonspecific bilateral groundglass pulmonate changes. Rule out viral infection including the possibility of a coronary virus Covid 19 infection. Rule out aty pical pneumonia. Rule out any other nonspecific pneumo toxic agent causing pulmonary groundglass changes including cigarette smoke and early hypersensitivity pneumonia. Sarcoidosis felt to be less likely. Malignancy is felt to be less likely. ILD secondary to other systemic illnesses is also felt to be less likely. 2 chest pain, atypical 3 nonischemic cardio myopathy with an ejection fraction of 30%, and subsequent echocardiogram that was done our facility showed improvement ejection fraction which is up to 50-55% without any acute abnormalities. 4 previous history of cardiac arrest 5 COPD 6 smoking 7 history of alcoholism Plan We'll give the patient course of Levaquin 500 mg for the next 7 days along with a prednisone burst taper. Smoking cessation counseling was done. See me back in the office in 3 weeks' time for repeat pulmonary function test. A follow-up CAT scan of the chest will be ordered. In 3-4 months time to assess the progression of this pulmonary abnormalities and based on the further with a similar to follow if biopsy is needed. Meanwhile, were still awaiting the results of the decker virus Covid 19 infection nasal swab by PCR. The patient can be discharged home if she is willing with the appropriate mask wearing and droplet precautions. We'll continue to follow.
== END 2020-01-23 13:33 | disposition home or self-care (01) ==
LOC: EC 06:30 → 3NCARDOBS 08:25
PROVIDERS: ADMIT Hospitalist; ATTEND Hospitalist
DX: R57.0 Cardiogenic shock (principal); R07.89 Other chest pain; R11.2 Nausea with vomiting, unspecified; I10 Essential (primary) hypertension; E78.5 Hyperlipidemia, unspecified; I42.8 Other cardiomyopathies; R73.9 Hyperglycemia, unspecified; I49.01 Ventricular fibrillation; F10.10 Alcohol abuse, uncomplicated; F17.200 Nicotine dependence, unspecified, uncomplicated; Z86.74 Personal history of sudden cardiac arrest; Z90.49 Acquired absence of other specified parts of digestive tract; Z98.51 Tubal ligation status; F14.11 Cocaine abuse, in remission; Z98.890 Other specified postprocedural states; Z80.8 Family history of malignant neoplasm of other organs or systems; Z82.49 Family history of ischemic heart disease and other diseases of the circulatory system; Z82.5 Family history of asthma and other chronic lower respiratory diseases; I25.2 Old myocardial infarction; Z79.82 Long term (current) use of aspirin; Z79.899 Other long term (current) drug therapy; J44.9 Chronic obstructive pulmonary disease, unspecified
CPT/HCPCS: 96376; 96365; 99285; 36415; 93005; 93306; 83880; 80061; 80053 ×2; 85652; 82164; 83690; 83735; 84484; 85025 ×2; 85610; 85730; 86140; 81001; 80306; 71046; 71250; G0378 ×2; U0003; S4990 ×2; J1644 ×2; J7512; Q9950

== ENCOUNTER → 2020-04-27 | Outpatient (CLI) | payer OTHER ==
--- NOTE | 2020-04-27 09:42 | CT ---
EXAMINATION TYPE: CT chest w con DATE OF EXAM: 04/27/2020 COMPARISON: January 22, 2020 HISTORY: Pneumonia follow up CT DLP: 268.3 mGycm Automated exposure control for dose reduction was used. CONTRAST: CT scan of the chest is performed with IV Contrast, patient injected with 100 mL of Isovue 300. FINDINGS: LUNGS: Again noted are multifocal areas of groundglass nodularity throughout both upper and lower will g robins bilaterally. Mild underlying emphysematous changes noted. Chronic granulomatous changes pers ist. MEDIASTINUM: There are no greater than 1 cm hilar or mediastinal lymph nodes. No pericardial effusi on is seen. Thoracic aorta is of normal caliber. The heart is not enlarged. UPPER ABDOMEN: No significant abnormality appreciated. OTHER: No additional significant abnormality is seen. IMPRESSION: No significant change in the multifocal areas of groundglass nodularity throughout both lung robins.
== END | disposition home or self-care (01) ==
LOC: RADCTMAIN 07:30
PROVIDERS: ATTEND Internal Medicine Critical Care Medicine
DX: J95.851 Ventilator associated pneumonia (principal)
CPT/HCPCS: 71260; Q9967

== ENCOUNTER → 2021-01-03 | Outpatient (CLI) | payer OTHER ==
--- NOTE | 2021-01-03 16:52 | CT ---
EXAMINATION TYPE: CT chest w con DATE OF EXAM: 01/03/2021 COMPARISON: 04/27/2020 HISTORY: Ventilator Associated Pneumonia CT DLP: 233.5 mGycm, Automated exposure control for dose reduction was used. CONTRAST: Performed injected with 100 mL of Isovue 300. TECHNIQUE: Axial images were obtained at 5 mm thick sections. Reconstructed images are reviewed on Balanced computer in the coronal plane. FINDINGS: Portion of the thyroid visualized is normal. There are scattered diffuse peripheral infiltrates present. These are improving from the comparison o f 04/27/2020. Correlate for atypical pneumonia in addition to the chronic pneumonitis changes.. Tiny peripheral nodules are present bilaterally. A larger nodule measuring 0.3 cm in the periphery le ft lung, series 4 image 25 there are a few scattered calcified nodules likely granuloma. There is a s table 0.3 cm nodule within the right middle lobe. Series 4 image 32. There is a stable density in the posterior right lung measuring 0.3 cm. Series 4 image 39. No enlarged mediastinal or hilar adenopathy is evident. The ascending aorta diameter at the level o f the main pulmonary artery is 3.0 cm. The main pulmonary artery diameter at the bifurcation is 2.[address] sections are obtained through the upper abdomen. Abdomen is essentially unremarkable. IMPRESSIONS: 1. There is some slight improvement of the groundglass opacity scattered bilaterally. Consider atypic al pneumonia within the differential. 2. Scattered few scattered nodules with multiple punctate nodularities remain present. The larger nod ules are discussed above.
[2021-01-03 22:53] LABS: Anti-Smith Ab Interp NEGATIVE (NEGATIVE)
== END | disposition home or self-care (01) ==
LOC: RADCTMAIN 07:11
PROVIDERS: ATTEND Internal Medicine Critical Care Medicine
DX: J95.851 Ventilator associated pneumonia (principal); R91.8 Other nonspecific abnormal finding of lung field
CPT/HCPCS: 86235 ×2; 86431; 86038; 86039; 71260; 36415; Q9967

== ENCOUNTER 2021-04-28 03:38 | Observation (INO) | payer OTHER ==
[2021-04-28] MEDS ORDERED: methylPREDNISolone SOD SUCCI 125 MG/2 ML VIAL IV STA (04:09)
[2021-04-28] MEDS ORDERED: ALBUTEROL NEBULIZED 2.5 MG/3 ML INHALATION STA (04:09)
[2021-04-28] MEDS ORDERED: IPRATROPIUM 0.5 MG/2.5 ML NEBU INHALATION STA (04:09)
[2021-04-28] MEDS ORDERED: SODIUM CHLORIDE 0.9% 1,000 ML IV STA ×2 (04:09)
[2021-04-28] MEDS ORDERED: MORPHINE SULFATE 2 MG/ML SYRINGE IVP STA (04:10)
--- NOTE | 2021-04-28 04:11 | ED ---
SOB HPI - General Chief Complaint: Shortness of Breath Stated Complaint: KRYSTAL Time Seen by Provider: 04/28/21 03:41 Source: patient Mode of arrival: wheelchair Limitations: no limitations - Related Data Home Medications Medication Instructions Recorded Confirmed Aspirin EC [Ecotrin Low Dose] 81 mg PO DAILY 01/22/20 01/22/20 Atorvastatin [Lipitor] 10 mg PO DAILY 01/22/20 01/22/20 Carvedilol [Coreg] 3.125 mg PO BID 01/22/20 01/22/20 Loratadine [Claritin] 10 mg PO DAILY 01/22/20 01/22/20 lisinopriL [Zestril] 20 mg PO DAILY 01/22/20 01/22/20 Previous Rx's Medication Instructions Recorded Levofloxacin [Levaquin] 500 mg PO Q24H #7 tab 01/23/20 predniSONE See Taper PO DIRECTED #30 tab 01/23/20 Allergies Allergy/AdvReac Type Severity Reaction Status Date / Time No Known Allergies Allergy Verified 04/28/21 03:44 Review of Systems ROS Statement: Those systems with pertinent positive or pertinent negative responses have been documented in the HPI. ROS Other: All systems not noted in ROS Statement are negative. Past Medical History Past Medical History: Chest Pain / Angina, COPD, Hypertension Additional Past Medical History / Comment(s): Pt states went to ER with chest pain/HTN and sent home then went to work and had a cardiac arrest in 2019/pt states she had echo and cardiac cath-all normal-no cause ever found for arrest, sinus issues. History of Any Multi-Drug Resistant Organisms: None Reported Past Surgical History: Back Surgery, Cholecystectomy, Heart Catheterization, Orthopedic Surgery, Tubal Ligation Additional Past Surgical History / Comment(s): 2019 normal cardiac cath, L$-L% discectomy Past Psychological History: No Psychological Hx Reported Smoking Status: Current every day smoker Past Alcohol Use History: None Reported Past Drug Use History: None Reported - Past Family History Father Family Medical History: Cancer Additional Family Medical History / Comment(s): Father at the age of 37 yrs from cancer from agent orange exposure in [place] per pt. Mother Family Medical History: Congestive Heart Failure (CHF), COPD, Myocardial Infarction ([place]) Additional Family Medical History / Comment(s): Mother had a [place] at the age of 60 yrs. She is 67yrs old. General Exam Limitations: no limitations Course Vital Signs 04/28/21 04/28/21 04/28/21 03:41 04:16 04:20 Temperature 97.9 F Pulse Rate 71 85 86 Respiratory 24 32 H Rate Blood Pressure 117/74 132/100 O2 Sat by Pulse 92 L Oximetry 04/28/21 04/28/21 04:23 04:44 Temperature Pulse Rate 88 81 Respiratory 32 H Rate Blood Pressure 102/69 O2 Sat by Pulse Oximetry Medical Decision Making - Lab Data Result diagrams: 04/28/21 04:19 04/28/21 04:19 Lab Results 04/28/21 04/28/21 04/28/21 Range/Units 04:19 04:19 04:19 WBC 7.8 (3.8-10.6) k/uL RBC 5.29 (3.80-5.40) m/uL Hgb 12.5 (11.4-16.0) gm/dL Hct 42.6 (34.0-46.0) % MCV 80.6 (80.0-100.0) fL MCH 23.7 L (25.0-35.0) pg MCHC 29.4 L (31.0-37.0) g/dL RDW 16.3 H (11.5-15.5) % Plt Count 242 (150-450) k/uL MPV 8.4 Neutrophils % 71 % Lymphocytes % 10 % Monocytes % 14 % Eosinophils % 1 % Basophils % 1 % Neutrophils # 5.5 (1.3-7.7) k/uL Lymphocytes # 0.8 L (1.0-4.8) k/uL Monocytes # 1.1 H (0-1.0) k/uL Eosinophils # 0.1 (0-0.7) k/uL Basophils # 0.1 (0-0.2) k/uL Hypochromasia Marked Anisocytosis Slight Sodium 131 L (137-145) mmol/L Potassium 4.7 (3.5-5.1) mmol/L Chloride 96 L (98-107) mmol/L Carbon Dioxide 31 H (22-30) mmol/L Anion Gap 4 mmol/L BUN 11 (7-17) mg/dL Creatinine 0.48 L (0.52-1.04) mg/dL Est GFR (CKD-EPI)AfAm >90 (>60 ml/min/1.73 sqM) Est GFR (CKD-EPI)NonAf >90 (>60 ml/min/1.73 sqM) Glucose 95 (74-99) mg/dL Calcium 8.5 (8.4-10.2) mg/dL Magnesium 2.0 (1.6-2.3) mg/dL Total Bilirubin 0.4 (0.2-1.3) mg/dL AST 54 H (14-36) U/L ALT 70 H (4-34) U/L Alkaline Phosphatase 68 (38-126) U/L Troponin I <0.012 (0.000-0.034) ng/mL NT-Pro-B Natriuret Pep pg/mL Total Protein 6.1 L (6.3-8.2) g/dL Albumin 3.5 (3.5-5.0) g/dL 04/28/21 Range/Units 04:19 WBC (3.8-10.6) k/uL RBC (3.80-5.40) m/uL Hgb (11.4-16.0) gm/dL Hct (34.0-46.0) % MCV (80.0-100.0) fL MCH (25.0-35.0) pg MCHC (31.0-37.0) g/dL RDW (11.5-15.5) % Plt Count (150-450) k/uL MPV Neutrophils % % Lymphocytes % % Monocytes % % Eosinophils % % Basophils % % Neutrophils # (1.3-7.7) k/uL Lymphocytes # (1.0-4.8) k/uL Monocytes # (0-1.0) k/uL Eosinophils # (0-0.7) k/uL Basophils # (0-0.2) k/uL Hypochromasia Anisocytosis Sodium (137-145) mmol/L Potassium (3.5-5.1) mmol/L Chloride (98-107) mmol/L Carbon Dioxide (22-30) mmol/L Anion Gap mmol/L BUN (7-17) mg/dL Creatinine (0.52-1.04) mg/dL Est GFR (CKD-EPI)AfAm (>60 ml/min/1.73 sqM) Est GFR (CKD-EPI)NonAf (>60 ml/min/1.73 sqM) Glucose (74-99) mg/dL Calcium (8.4-10.2) mg/dL Magnesium (1.6-2.3) mg/dL Total Bilirubin (0.2-1.3) mg/dL AST (14-36) U/L ALT (4-34) U/L Alkaline Phosphatase (38-126) U/L Troponin I (0.000-0.034) ng/mL NT-Pro-B Natriuret Pep 1390 pg/mL Total Protein (6.3-8.2) g/dL Albumin (3.5-5.0) g/dL - EKG Data -: EKG Interpreted by Me (EKG sinus rhythm 80 WV 154 QRS 66 QTC 399) Disposition Clinical Impression: Asthma with acute exacerbation, Acute exacerbation of chronic obstructive pulmonary disease, Hypoxia Disposition: ADMITTED IP TO THIS HOSP Condition: Fair Is patient prescribed a controlled substance at d/c from ED?: No Referrals: Gabe Youssef MD [Primary Care Provider] - 1-2 days
[2021-04-28 04:55] LABS: Anisocytosis Slight; Basophils # (A) 0.1 k/uL (0-0.2); Basophils % (A) 1 %; Eosinophils # (A) 0.1 k/uL (0-0.7); Eosinophils % (A) 1 %; HCT 42.6 % (34.0-46.0); HGB 12.5 gm/dL (11.4-16.0); Hypochromasia Marked; Lymphocytes # (A) 0.8 k/uL (1.0-4.8); Lymphocytes % (A) 10 %; MCH 23.7 pg (25.0-35.0); MCHC 29.4 g/dL (31.0-37.0); MCV 80.6 fL (80.0-100.0); Mean Platelet Volume 8.4; Monocytes # (A) 1.1 k/uL (0-1.0); Monocytes % (A) 14 %; Neutrophils # (A) 5.5 k/uL (1.3-7.7); Neutrophils % (A) 71 %; Platelet Count 242 k/uL (150-450); RBC 5.29 m/uL (3.80-5.40); RDW 16.3 % (11.5-15.5); WBC 7.8 k/uL (3.8-10.6)
[2021-04-28 05:09] LABS: ALT 70 U/L (4-34); AST 54 U/L (14-36); African American GFR (CKD) >90 (>60 ml/min/1.73 sqM); Albumin 3.5 g/dL (3.5-5.0); Alkaline Phosphatase 68 U/L (38-126); Anion Gap 4 mmol/L; Blood Urea Nitrogen 11 mg/dL (7-17); Calcium 8.5 mg/dL (8.4-10.2); Carbon Dioxide 31 mmol/L (22-30); Chloride 96 mmol/L (98-107); Glucose 95 mg/dL (74-99); Non-African American GFR(CKD) >90 (>60 ml/min/1.73 sqM); Potassium 4.7 mmol/L (3.5-5.1); Sodium 131 mmol/L (137-145); Total Bilirubin 0.4 mg/dL (0.2-1.3); Total Protein 6.1 g/dL (6.3-8.2)
[2021-04-28 05:21] LABS: INR 0.9 (<1.2); Partial Thromboplastin Time 24.5 sec (22.0-30.0); Prothrombin Time 9.6 sec (9.0-12.0)
[2021-04-28] MEDS ORDERED: IPRATROPIUM-ALBUTEROL 3 ML NEB INHALATION STA (05:25)
--- NOTE | 2021-04-28 05:33 | XR ---
EXAMINATION TYPE: XR chest 1V portable DATE OF EXAM: 04/28/2021 COMPARISON: 02/12/2020 HISTORY: Short of breath TECHNIQUE: Single view FINDINGS: There is no heart failure. There is a small linear infiltrate in the left midlung. There is no pleural effusion. There are no hilar masses. There are chest leads. Bony thorax is intact. IMPRESSION: There is a new small linear infiltrate or atelectasis left midlung compared to old exam. No heart failure seen.
[2021-04-28] MEDS: methylPREDNISolone SOD SUCCI 125 MG/2 ML VIAL IV SCH ×3 (06:01→18:37)
[2021-04-28] MEDS ORDERED: ACETAMINOPHEN TAB 325 MG TAB PO STA (06:19)
[2021-04-28] MEDS ORDERED: ACETAMINOPHEN TAB 325 MG TAB PO PRN (06:19)
[2021-04-28 07:42] LABS: C Reactive Protein 0.9 mg/dL (<1.0)
--- NOTE | 2021-04-28 07:45 | CT ---
EXAMINATION TYPE: CT angio chest DATE OF EXAM: 04/28/2021 7:27 AM COMPARISON: CT chest January 03, 2021 HISTORY: SOB, cough CT DLP: 346.5 mGycm Automated exposure control for dose reduction was used. CONTRAST: CTA scan of the thorax is performed with IV Contrast, patient injected with 58 mL of Isovue 370, pulm onary embolism protocol. MIP images are created and reviewed. FINDINGS: LUNGS: Background emphysematous change with new overall mosaic attenuation. A few tiny calcified nodu les or granulomas in the left upper lobe are redemonstrated. Mild linear scarring medially in both raul ng bases redemonstrated. New mild bibasilar linear scarring and/or atelectasis just above the diaphra gms. Trace bilateral pleural effusions in the bases. No suspicious focal consolidation. MEDIASTINUM: There is suboptimal bolus with equal contrast in right and left heart systems but no CT evidence for acute pulmonary embolism. Bilateral hilar and thoracic adenopathy including AP window, prevascular, and subcarinal levels. Enla rged main pulmonary artery of 3.6 cm axial image 60. CT finding consistent with underlying pulmonary artery hypertension. No cardiomegaly or pericardial effusion is seen. No thoracic aortic aneurysm or dissection. OTHER: Mild multilevel spurring in the spine. Cholecystectomy clips redemonstrated on localizer. IMPRESSION: 1. No CTA evidence for acute pulmonary embolism. 2. Background moderate underlying emphysematous change with new mosaic attenuation favoring mild to m oderate alveolar edema. Atypical infiltrates not excluded. Reactive thoracic adenopathy noted new fro m prior. Correlate clinically.
[2021-04-28] MEDS ORDERED: ALBUTEROL NEBULIZED 2.5 MG/3 ML INHALATION SCH (08:00)
[2021-04-28] MEDS ORDERED: IPRATROPIUM-ALBUTEROL 3 ML NEB INHALATION PRN (08:50)
[2021-04-28] MEDS ORDERED: FUROSEMIDE 10 MG/ML 2 ML VIAL IV SCH (09:00)
[2021-04-28] MEDS ORDERED: PANTOPRAZOLE 40 MG/10 ML VIAL IVP SCH (09:00)
--- NOTE | 2021-04-28 09:44 | P.CRDCN ---
History of Present Illness History of present illness: HISTORY OF PRESENTING ILLNESS This is a pleasant 50-year-old female past medical history significant for chronic nicotine dependence, history of cocaine use, daily alcohol use, hypertension, hyperlipidemia, V fib arrest in 2019 at [facility] in 2019 nonischemic cardiomyopathy EF of 30% with recovered EF, Cardiac cath in 2019 at [facility] with normal coronary arteries, recent diagnosis of COPD. She follows in the office with Dr. Coles. We have been asked to see in consulta tion for congestive heart failure. Patient is seen and examined in the emergency department. Patient presents emergency department with worsening shortness of breath, cough, wheezing for the past 13 days. Her symptoms progressively got worse and decided to present to the emergency department for further evaluation. She also endorses some chest discomfort when she coughs. Her chest pain is nonradiating, nonexertional. She denies any associated nausea, diaphoresis, lightheadedness, dizziness, or palpitations. She denies fever, chills. She denies any symptoms of presyncope or syncope. She does endorse symptoms of orthopnea. She also has trouble sleeping due to her difficulty breathing. She states she drinks about 3 beers per day. She states she currently smoke 1/2-1PPD, and states she used to smoke more. She denies any current illicit drug use. She does state that she is compliant with her medication. DIAGNOSTICS EKG reveals sinus rhythm, heart rate 80, t wave inversion in lead aVL, no significant ST-T wave abnormalities. Prior EKG in 2019 with similar findings. Chest xray report revealed a small linear infiltrate or atelectasis left mid lung compared to old exam. CT chest revealed no pulmonary embolism. Background emphysematous change. Few tiny calcified nodules or granulomas in the left upper lobe. Enlarged main pulmonary artery of 3.6 cm. No cardiomegaly. Laboratory reviewed, WBC 7.6, hemoglobin 12.5, platelets 242, d-dimer 0.86, sodium 131, potassium 4.7, BUN 11, serum creatinine 0.4, AST 54, ALT 70, proBNP 1390, prior BNP 68, troponin negative 1 Current home medications include lisinopril 30 mg daily, carvedilol 6.25 mg twice a day, Singulair, Advair, atorvastatin 10 mg daily Most recent echocardiogram 01/2020 revealed EF 5055 percent, mild mitral regurgitation Holter monitor in the office 04/2020 revealed sinus mechanism, occasional premature beats. REVIEW OF SYSTEMS At the time of my exam: CONSTITUTIONAL: Denies fever or chills. CARDIOVASCULAR:+chest pain,+ shortness of breath,+ orthopnea,+ PND Denies palpitations. RESPIRATORY: +cough, shortness of breath GASTROINTESTINAL: Denies abdominal pain, diarrhea, constipation, nausea or vomiting. MUSCULOSKELETAL: Denies myalgias. NEUROLOGIC: Denies numbness, tingling, headache or weakness. ENDOCRINE: Denies fatigue, weight change, polydipsia or polyurina. GENITOURINARY: Denies burning, hematuria or urgency with micturation. HEMATOLOGIC: Denies history of anemia or bleeding. PHYSICAL EXAMINATION Blood pressure 116/78, heart rate 80, afebrile oxygen saturation is 93% on 3 L nasal cannula CONSTITUTIONAL: No apparent distress. HEENT: Head is normocephalic. Pupils are equal, round. Sclerae anicteric. Mucous membranes of the mouth are moist. No JVD. No carotid bruit. CHEST EXAMINATION: Lungs with decreased air exchange bilaterally to auscultation. Audible wheezing. No chest wall tenderness is noted on palpation or with deep breathing. HEART EXAMINATION: Regular rate and rhythm. S1, S2 heard. Systolic murmur noted ABDOMEN: Soft, nontender. Positive bowel sounds. EXTREMITIES: 2+ peripheral pulses, no lower extremity edema and no calf tenderness. SKIN: warm, dry NEUROLOGIC EXAMINATION: Patient is awake, alert and oriented x3. ASSESSMENT Acute on chronic diastolic heart failure- echo pending COPD exacerbation History of Ventricular fibrillation arrest History of nonischemic cardiomyopathy with recovered EF History of cocaine use Chronic nicotine dependence Daily alcohol use History of Hypertension History of Hyperlipidemia PLAN An acute coronary event unlikely with no EKG evidence of ischemia and negative cardiac enzyme x1. Will trend troponin Obtain 2D echocardiogram and doppler study to assess cardiac structure and function. Start IV Lasix 20mg BID Monitor renal function and electrolytes I/Os daily weights Continue home cardiac mediations, coreg, statin, and lisinopril Smoking and alcohol cessation discussed and highly recommended. Pulmonary consulted, appreciate recommendations Further recommendations based on clinical course Thank you kindly for this consultation. Nurse Practitioner note has been reviewed, I agree with a documented findings and plan of care. Patient was seen and examined. Past Medical History Past Medical History: Chest Pain / Angina, COPD, Hypertension Additional Past Medical History / Comment(s): Pt states went to ER with chest pain/HTN and sent home then went to work and had a cardiac arrest in 2019/pt states she had echo and cardiac cath-all normal-no cause ever found for arrest, sinus issues. History of Any Multi-Drug Resistant Organisms: None Reported Past Surgical History: Back Surgery, Cholecystectomy, Heart Catheterization, Orthopedic Surgery, Tubal Ligation Additional Past Surgical History / Comment(s): 2019 normal cardiac cath, L$-L% discectomy Past Psychological History: No Psychological Hx Reported Smoking Status: Current every day smoker Past Alcohol Use History: None Reported Past Drug Use History: None Reported - Past Family History Father Family Medical History: Cancer Additional Family Medical History / Comment(s): Father at the age of 37 yrs from cancer from agent orange exposure in [place] per pt. Mother Family Medical History: Congestive Heart Failure (CHF), COPD, Myocardial Infarction ([place]) Additional Family Medical History / Comment(s): Mother had a [place] at the age of 60 yrs. She is 67yrs old. Medications and Allergies Home Medications Medication Instructions Recorded Confirmed Type Atorvastatin [Lipitor] 10 mg PO DAILY@0330 01/22/20 04/28/21 History Fluticasone/Salmeterol [Advair Hfa 2 puff INHALATION RT-BID 04/28/21 04/28/21 History 230-21 Mcg Inhaler] Montelukast [Singulair] 10 mg PO DAILY@0330 04/28/21 04/28/21 History carvediloL [Coreg] 6.25 mg PO BID@0330,1530 04/28/21 04/28/21 History lisinopriL 30 mg PO DAILY@0330 04/28/21 04/28/21 History Allergies Allergy/AdvReac Type Severity Reaction Status Date / Time No Known Allergies Allergy Verified 04/28/21 06:50 Physical Exam Vitals: Vital Signs Temp Pulse Resp BP Pulse Ox 04/28/21 09:28 86 04/28/21 09:10 86 20 04/28/21 06:26 98.6 F 88 18 116/78 93 L 04/28/21 05:56 92 04/28/21 05:48 88 04/28/21 04:44 81 32 H 102/69 04/28/21 04:23 88 04/28/21 04:20 86 32 H 132/100 04/28/21 04:16 85 04/28/21 03:41 97.9 F 71 24 117/74 92 L Intake and Output 04/27/21 04/28/21 04/28/21 22:59 06:59 14:59 Other: Weight 72.121 kg Results 04/28/21 04:19 04/28/21 04:19 Cardiac Enzymes 04/28/21 04/28/21 04/28/21 Range/Units 04:19 04:19 05:53 AST 54 H (14-36) U/L Lactate Dehydrogenase 488 (313-618) U/L Troponin I <0.012 (0.000-0.034) ng/mL Coagulation 04/28/21 Range/Units 04:19 PT 9.6 (9.0-12.0) sec APTT 24.5 (22.0-30.0) sec CBC 04/28/21 Range/Units 04:19 WBC 7.8 (3.8-10.6) k/uL RBC 5.29 (3.80-5.40) m/uL Hgb 12.5 (11.4-16.0) gm/dL Hct 42.6 (34.0-46.0) % Plt Count 242 (150-450) k/uL Comprehensive Metabolic Panel 04/28/21 Range/Units 04:19 Sodium 131 L (137-145) mmol/L Potassium 4.7 (3.5-5.1) mmol/L Chloride 96 L (98-107) mmol/L Carbon Dioxide 31 H (22-30) mmol/L BUN 11 (7-17) mg/dL Creatinine 0.48 L (0.52-1.04) mg/dL Glucose 95 (74-99) mg/dL Calcium 8.5 (8.4-10.2) mg/dL AST 54 H (14-36) U/L ALT 70 H (4-34) U/L Alkaline Phosphatase 68 (38-126) U/L Total Protein 6.1 L (6.3-8.2) g/dL Albumin 3.5 (3.5-5.0) g/dL Current Medications Generic Name Dose Route Start Last Admin Trade Name Freq PRN Reason Stop Dose Admin Acetaminophen 650 mg 04/28/21 06:19 Acetaminophen Tab 325 Mg Tab PO Q4HR PRN Fever and/ or Pain Albuterol Sulfate 5 mg 04/28/21 08:00 04/28/21 09:10 Albuterol Nebulized 2.5 Mg/3 Ml INHALATION 5 mg RT-QID KRISTINA Administration Albuterol/Ipratropium 3 ml 04/28/21 12:00 Ipratropium-Albuterol 3 Ml Neb INHALATION RT-QID KRISTINA Albuterol/Ipratropium 3 ml 04/28/21 08:50 Ipratropium-Albuterol 3 Ml Neb INHALATION RT-Q2H PRN Shortness Of Breath Or Wheezing Atorvastatin Calcium 10 mg 04/29/21 03:30 Atorvastatin 10 Mg Tab PO DAILY@0330 [facility] Azithromycin 500 mg 04/28/21 09:00 Azithromycin 500 Mg Tab PO DAILY [facility] Budesonide/Formoterol Fumarate 2 puff 04/28/21 20:00 Symbicort 160-4.5 Mcg Inhaler INHALATION RT-BID [facility] Carvedilol 6.25 mg 04/28/21 15:30 Carvedilol 6.25 Mg Tab PO BID@0330,1530 [facility] Furosemide 20 mg 04/28/21 09:00 Furosemide 10 Mg/Ml 2 Ml Vial IV Q12HR [facility] Sodium Chloride 1,000 mls @ 130 mls/hr 04/28/21 04:09 04/28/21 06:11 Saline 0.9% IV 04/28/21 11:50 130 mls/hr .Q7H42M STA Administration Sodium Chloride 1,000 mls @ 100 mls/hr 04/28/21 05:30 Saline 0.9% IV .Q10H [facility] Insulin Aspart 0 unit 04/28/21 12:30 Insulin Aspart (Novolog) 100 Unit/Ml Vial SQ ACHS [facility] Protocol Lisinopril 30 mg 04/29/21 03:30 Lisinopril 10 Mg Tab PO DAILY@0330 [facility] Methylprednisolone Sodium Succinate 60 mg 04/28/21 06:00 04/28/21 06:01 Methylprednisolone Sod Succi 125 Mg/2 Ml Vial IV Not Given Q6HR [facility] Montelukast Sodium 10 mg 04/29/21 03:30 Montelukast 10 Mg Tab PO DAILY@0330 [facility] Morphine Sulfate 2 mg 04/28/21 04:10 Morphine Sulfate 2 Mg/Ml Syringe IVP Q4HR PRN Pain/Discomfort Nicotine 1 patch 04/28/21 09:00 Nicotine 21mg/24hr Patch TRANSDERM DAILY KRISTINA Pantoprazole Sodium 40 mg 04/28/21 09:00 Pantoprazole 40 Mg/10 Ml Vial IVP DAILY KRISTINA Intake and Output 04/27/21 04/28/21 04/28/21 22:59 06:59 14:59 Other: Weight 72.121 kg 04/28/21 04:19 04/28/21 04:19
[2021-04-28] MEDS: AZITHROMYCIN 500 MG TAB PO SCH (10:17)
[2021-04-28] MEDS: SODIUM CHLORIDE 0.9% 1,000 ML IV SCH ×2 (10:18→17:14)
[2021-04-28] MEDS: NICOTINE 21MG/24HR PATCH TRANSDERM SCH (10:18)
--- NOTE | 2021-04-28 10:47 | ECHOF ---
Referral Reason:CHF MEASUREMENTS -------- HEIGHT: 152.4 cm WEIGHT: 72.1 kg BP: RVIDd: 3.5 cm (< 3.3) IVSd: 1.1 cm (0.6 - 1.1) LVIDd: 4.0 cm (3.9 - 5.3) LVPWd: 1.1 cm (0.6 - 1.1) IVSs: 1.2 cm LVIDs: 3.0 cm LVPWs: 1.1 cm LAESV Index (A-L): 32.18 ml/m Ao Diam: 2.5 cm (2.0 - 3.7) AV Cusp: 1.2 cm (1.5 - 2.6) LA Diam: 3.1 cm (2.7 - 3.8) MV EXCURSION: 16.659 mm (> 18.000) MV EF SLOPE: 88 mm/s (70 - 150) EPSS: 0.4 cm MV E Anirudh: 0.71 m/s MV DecT: 260 ms MV A Anirudh: 0.79 m/s MV E/A Ratio: 0.90 AV maxP.81 mmHg AV meanP.12 mmHg RAP: 5.00 mmHg RVSP: 36.57 mmHg FINDINGS -------- Sinus rhythm. This was a technically adequate study. The left ventricular size is normal. There is mild concentric left ventricular hypertrophy. Overa ll left ventricular systolic function is mildly impaired with, an EF between 45 - 50 %. Mid anterio r LV wall motion is hypokinetic. Apical anterior LV wall motion is hypokinetic. The right ventricle is normal in size. LA is midly dilated 29-33ml/m2. The right atrial size is normal. There is mild aortic valve sclerosis. There is mild aortic stenosis present. Peak/mean gradient a cross the Aortic Valve is 18.81mmHg / 11.12mmHg. The mitral valve is normal. Mild mitral regurgitation is present. The tricuspid valve appears structurally normal. Mild tricuspid regurgitation present. There is m ild pulmonary hypertension. The right ventricular systolic pressure, as measured by Doppler, is 36. 57mmHg. There is no pulmonic regurgitation present. The aortic root size is normal. There is no pericardial effusion. CONCLUSIONS -------- 1. There is mild concentric left ventricular hypertrophy. 2. Overall left ventricular systolic function is mildly impaired with, an EF between 45 - 50 %. 3. Mid anterior LV wall motion is hypokinetic. 4. Apical anterior LV wall motion is hypokinetic. 5. LA is midly dilated 29-33ml/m2. 6. There is mild aortic stenosis present. 7. Peak/mean gradient across the Aortic Valve is 18.81mmHg / 11.12mmHg. 8. Mild mitral regurgitation is present. 9. Mild tricuspid regurgitation present. 10. There is mild pulmonary hypertension. 11. There is no pericardial effusion. BUTTER MAKER: Cecy Angulo RDCS
[2021-04-28] MEDS ORDERED: BUDESONIDE 0.5 MG/2 ML NEBU INHALATION SCH ×2 (11:04→20:00)
--- NOTE | 2021-04-28 11:41 | P.CNPUL ---
History of Present Illness Consult date: 04/28/21 Reason for consult: dyspnea History of present illness: A very pleasant 50-year-old female patient is known to me from previous evaluations. The patient's is known to have an extensive cardiac problems including previous history of V. fib arrest in 2019, nonischemic cardiomyopathy with an ejection fraction of 30%. She is not known to have coronary artery disease. She is a chronic smoker in she also has history of COPD. The patient continues to smoke about half to 1 pack of cigarettes a day. On earlier evaluations, I have noted that the patient has bilateral ground this pulmonary infiltrates and based on my follow-up on her series of CAT scans of the chest from 01/03/2021 and 04/27/2020, there was some limited improvement in the bi lateral groundglass pulmonary infiltrates. There were also scattered few bilateral pulmonary nodules that were essentially inflammatory in nature. Based on that, I did a connective tissue disease workup on this patient and the patient was checked positive for STARR and this was of a low titer 1-80 and the patient also had positive anti-PC SUPPORT SPECIALIST antibodies. Rheumatoid factor was negative. Her angiotensin-converting enzyme level was also low. I started the patient on Advair HFA 2: 2 puffs twice a day. The plan was to monitor these areas of pneumonitis there were originally identified in January 2020. I suspected underlying interstitial lung disease including the possibility of a smoking in duced ILD and other connective tissue disease related ILD's. Atypical mycobacterial infection and sarcoidosis were felt to be less likely. I referred this patient also to see a practice consultant for further investigation. The patient came into the hospital yesterday because of increased shortness of breath, dyspnea, cough, chest tightness and wheezing that was going on for the past 3 days. She is fully vaccinated for COVID 19 and her COVID 19 testing came back negative. Note that she has moderately severe COPD and her FEV1 is in order of 51% of predicted which is at 1.27 L. She uses albuterol rescue inhaler on an as-needed basis. She has hypertension and hyperlipidemia as comorbid conditions. As far as her bilateral ground with pulmonary infiltrates, this could be also related to cardiomyopathy/CHF. The patient is currently under the care of Dr. Lemon regarding her cardiac disease. For now, the patient is already feeling better. Overnight, she was given a combination of [facility] hodilators and steroids. EKG showed normal sinus rhythm. No acute ischemic changes. CAT scan of the chest showed bilateral basilar that is emphysematous changes in addition to areas of groundglass bilateral pulmonary opacities. White cell count was at 7.6 with a hemoglobin 12.5, BUN was 11 with a creatinine of 0.4. ProBNP level was 1319. Troponin was negative. Her ejection fraction has improved on the repeat echocardiogram and her EF is up to 45-50%. No significant valvular abnormalities. She is on a combination of Coreg and lisinopril at home. She takes also Advair and Lipitor for hyperlipidemia. She is afebrile. Her cough is congested for now. She was given empiric antibiotic coverage with Zithromax and she is also on IV Solu Medrol and one of the breast units [id number]. Review of Systems CONSTITUTIONAL: Denies fever or chills. CARDIOVASCULAR:+chest pain,+ shortness of breath,+ orthopnea,+ PND Denies palpitations. RESPIRATORY: +cough, shortness of breath GASTROINTESTINAL: Denies abdominal pain, diarrhea, constipation, nausea or vomi ting. MUSCULOSKELETAL: Denies myalgias. NEUROLOGIC: Denies numbness, tingling, headache or weakness. ENDOCRINE: Denies fatigue, weight change, polydipsia or polyurina. GENITOURINARY: Denies burning, hematuria or urgency with micturation. HEMATOLOGIC: Denies history of anemia or bleeding. Past Medical History Past Medical History: Chest Pain / Angina, COPD, Hypertension Additional Past Medical History / Comment(s): Pt states went to ER with chest pain/HTN and sent home then went to work and had a cardiac arrest in 2019/pt states she had echo and cardiac cath-all normal-no cause ever found for arrest, sinus issues. History of Any Multi-Drug Resistant Organisms: None Reported Past Surgical History: Back Surgery, Cholecystectomy, Heart Catheterization, Orthopedic Surgery, Tubal Ligation Additional Past Surgical History / Comment(s): 2019 normal cardiac cath, L$-L% discectomy Past Psychological History: No Psychological Hx Reported Smoking Status: Current every day smoker Past Alcohol Use History: None Reported Past Drug Use History: None Reported - Past Family History Father Family Medical History: Cancer Additional Family Medical History / Comment(s): Father at the age of 37 yrs from cancer from agent orange exposure in [place] per pt. Mother Family Medical History: Congestive Heart Failure (CHF), COPD, Myocardial Infarct ion ([place]) Additional Family Medical History / Comment(s): Mother had a [place] at the age of 60 yrs. She is 67yrs old. Medications and Allergies Home Medications Medication Instructions Recorded Confirmed Type Atorvastatin [Lipitor] 10 mg PO DAILY@0330 01/22/20 04/28/21 History Fluticasone/Salmeterol [Advair Hfa 2 puff INHALATION RT-BID 04/28/21 04/28/21 History 230-21 Mcg Inhaler] Montelukast [Singulair] 10 mg PO DAILY@0330 04/28/21 04/28/21 History carvediloL [Coreg] 6.25 mg PO BID@0330,1530 04/28/21 04/28/21 History lisinopriL 30 mg PO DAILY@0330 04/28/21 04/28/21 History Allergies Allergy/AdvReac Type Severity Reaction Status Date / Time No Known Allergies Allergy Verified 04/28/21 06:50 Physical Exam Vitals: Vital Signs Temp Pulse Resp BP Pulse Ox 04/28/21 09:28 86 04/28/21 09:10 86 20 04/28/21 06:26 98.6 F 88 18 116/78 93 L 04/28/21 05:56 92 04/28/21 05:48 88 04/28/21 04:44 81 32 H 102/69 04/28/21 04:23 88 04/28/21 04:20 86 32 H 132/100 04/28/21 04:16 85 04/28/21 03:41 97.9 F 71 24 117/74 92 L Intake and Output 04/27/21 04/28/21 04/28/21 22:59 06:59 14:59 Other: Weight 72.121 kg The patient appeared well nourished and normally developed. Vital signs as documented. Head exam is unremarkable. No scleral icterus or corneal arcus noted. Neck is without jugular venous distension, thyromegaly, or carotid bruits. Carotid upstrokes are brisk bilaterally. Lungs sounds are diminished and the patient had diffuse expiratory wheezes throughout the lung his bilaterally. Air entry is markedly diminished in the lung bases. Cardiac exam reveals the PMI to be normally sized and situated. Rhythm is regular. First and second heart sounds normal. No murmurs, rubs or gallops. Abdominal exam reveals normal bowel sounds, no masses, no organomegaly and no aortic enlargement. Extremities are nonedematous and both femoral and pedal pulses are normal.Examination of the skin revealed no evidence of significant rashes, suspicious appearing nevi or other concerning lesions.Neurologically, the patient is awake and alert and the patient does not have any focal neurological deficit. Cranial nerves are essentially intact. Results - Laboratory Findings CBC and BMP: 04/28/21 04:19 04/28/21 04:19 PT/INR, D-dimer PT 9.6 sec (9.0-12.0) 04/28/21 04:19 INR 0.9 (<1.2) 04/28/21 04:19 D-Dimer 0.86 mg/L FEU (<0.60) H 04/28/21 04:19 Abnormal lab findings: Abnormal Labs 04/28/21 04/28/21 04/28/21 04:19 04:19 04:19 MCH 23.7 L MCHC 29.4 L RDW 16.3 H Lymphocytes # 0.8 L Monocytes # 1.1 H D-Dimer 0.86 H Sodium 131 L Chloride 96 L Carbon Dioxide 31 H Creatinine 0.48 L AST 54 H ALT 70 H Total Protein 6.1 L - Diagnostic Findings Chest x-ray: image reviewed CT scan - chest: image reviewed Assessment and Plan Plan: 1 acute COPD exacerbation with secondary shortness of breath. CT angiogram of the chest was done and there is no evidence of any pneumonia. The patient's been vaccinated for Covid 19 and her testing came back negative. She is already feeling better with a combination of bronchodilators and steroids. CAT scan of the chest showed some chronic bilateral groundglass pulmonary changes. 2 chronic and nonspecific bilateral groundglass pulmonate changes. ILD was suspected. The patient has a positive STARR and anti-PC SUPPORT SPECIALIST antibodies. I have ref erred this patient to a practice consultant for an underlying connective tissue disease workup. No lung biopsies of been done yet and these findings are essentially chronic. Underlying lupus versus mixed connective tissue disease disorder. The patient is currently seeing Dr. Mckeon from rheumatology. 2 CHF with ejection fraction of around 45% 3 dyspnea and cough secondary to above 4 previous history of cardiac arrest 5 COPD 6 smoking 7 history of alcoholism 8 hypertension 9 hyperlipidemia Plan Agree on optimizing the patient's COPD with a combination of bronchodilators and steroids Check a pro-calcitonin level Antibiotic coverage with Zithromax Would like this patient to have a rheumatologic evaluation and ultimately she would benefit from a surgical lung biopsy to establish the final diagnoses regarding her chronic inflammatory on groundglass changes in her lungs. Resume all medication. Cardiology consultation was appreciated. There is compensated CHF. ProBNP level was nonelevated. We'll continue to follow.
--- NOTE | 2021-04-28 11:53 | P.HPIM ---
History of Present Illness H&P Date: 04/28/21 Chief Complaint: Worsening dyspnea 1 week This is a 50-year-old female with past medical history of chest pain, nonischemic cardiomyopathy EF of 30% with subsequent echo reporting recovered EF, cardiac arrest, hypertension, COPD, ongoing nicotine dependence-states smokes between a half a pack to 1 pack per day, alcohol abuse-drinks 3 beers daily and multiple other medical issues presented to the ER with worsening shortness of breath, 1 week. States unable to sleep secondary to gasping for air and presented to the ER. Denies fever, chills or sweats. Denies chest pain, palpitation. Troponin negative 1, EKG reporting normal sinus rhythm with anterior septal abnormalities-further review as per cardiology. On admission patient afebrile, normal WBC, pulse rate 71, respiratory rate 24, blood pressure 117/74, maintaining O2 sat of 92% on room air. Chest x-ray reporting new small linear infiltrate or atelectasis left mid lung compared to prior exam, no heart failure seen. D-dimer 0.86, Chest CTA reported no evidence for acute pulmonary embolism, background moderate underlying emphysematous change with new mosaic attenuation favoring mild to moderate alveolar edema, possible atypical infiltrates, reactive thoracic adenopathy noted new from prior. Echocardiogram pending. MCV 80.6, hemoglobin 12.5, platelets 242, sodium 131, potassium 4.7, bicarb 31, BUN 11, creatinine 0.48, magnesium 2, AST 54, ALT 70. Coronavirus not detected. Review of Systems ROS Statement: Those systems with pertinent positive or pertinent negative responses have been documented in the HPI. ROS Other: All systems not noted in ROS Statement are negative. Past Medical History Past Medical History: Chest Pain / Angina, COPD, Hypertension Additional Past Medical History / Comment(s): Pt states went to ER with chest pain/HTN and sent home then went to work and had a cardiac arrest in 2019/pt states she had echo and cardiac cath-all normal-no cause ever found for arrest, sinus issues. History of Any Multi-Drug Resistant Organisms: None Reported Past Surgical History: Back Surgery, Cholecystectomy, Heart Catheterization, Orthopedic Surgery, Tubal Ligation Additional Past Surgical History / Comment(s): 2019 normal cardiac cath, L$-L% discectomy Past Psychological History: No Psychological Hx Reported Smoking Status: Current every day smoker Past Alcohol Use History: None Reported Past Drug Use History: None Reported - Past Family History Father Family Medical History: Cancer Additional Family Medical History / Comment(s): Father at the age of 37 yrs from cancer from agent orange exposure in [place] per pt. Mother Family Medical History: Congestive Heart Failure (CHF), COPD, Myocardial Infarction ([place]) Additional Family Medical History / Comment(s): Mother had a [place] at the age of 60 yrs. She is 67yrs old. Medications and Allergies Home Medications Medication Instructions Recorded Confirmed Type Atorvastatin [Lipitor] 10 mg PO DAILY@0330 01/22/20 04/28/21 History Fluticasone/Salmeterol [Advair Hfa 2 puff INHALATION RT-BID 04/28/21 04/28/21 History 230-21 Mcg Inhaler] Montelukast [Singulair] 10 mg PO DAILY@0330 04/28/21 04/28/21 History carvediloL [Coreg] 6.25 mg PO BID@0330,1530 04/28/21 04/28/21 History lisinopriL 30 mg PO DAILY@0330 04/28/21 04/28/21 History Allergies Allergy/AdvReac Type Severity Reaction Status Date / Time No Known Allergies Allergy Verified 04/28/21 06:50 Physical Exam Vitals: Vital Signs Temp Pulse Resp BP Pulse Ox 04/28/21 09:28 86 04/28/21 09:10 86 20 04/28/21 06:26 98.6 F 88 18 116/78 93 L 04/28/21 05:56 92 04/28/21 05:48 88 04/28/21 04:44 81 32 H 102/69 04/28/21 04:23 88 04/28/21 04:20 86 32 H 132/100 04/28/21 04:16 85 04/28/21 03:41 97.9 F 71 24 117/74 92 L Intake and Output 04/27/21 04/28/21 04/28/21 22:59 06:59 14:59 Other: Weight 72.121 kg PHYSICAL EXAM: VITAL SIGNS: [As above] GENERAL: Sitting up on stretcher, no acute distress HEENT: Conjunctivae normal. eyes normal. NECK: No JVD. No thyroid enlargement. No LNs CARDIOVASCULAR: S1, S2 regular.No murmur RESPIRATION: Poor air entry, Breath sounds diminished in the bases. Scattered rhonchi, no crackles. ABDOMEN: Soft, nontender . No guarding. no masses palpable. No ascites, No hepatosplenomegaly.Bowel sounds heard. LEGS: No edema. no swelling PSYCHIATRY: Alert and oriented X3, mood and affect normal. NERVOUS SYSTEM: Cranial N 2-12 grossly normal. Moves all 4 limbs.No focal deficits. Strength and sensation grossly intact.. Skin: Warm and dry, no rash Results CBC & Chem 7: 04/28/21 04:19 04/28/21 04:19 Labs: Abnormal Lab Results - Last 24 Hours (Table) 04/28/21 04/28/21 04/28/21 Range/Units 04:19 04:19 04:19 MCH 23.7 L (25.0-35.0) pg MCHC 29.4 L (31.0-37.0) g/dL RDW 16.3 H (11.5-15.5) % Lymphocytes # 0.8 L (1.0-4.8) k/uL Monocytes # 1.1 H (0-1.0) k/uL D-Dimer 0.86 H (<0.60) mg/L FEU Sodium 131 L (137-145) mmol/L Chloride 96 L (98-107) mmol/L Carbon Dioxide 31 H (22-30) mmol/L Creatinine 0.48 L (0.52-1.04) mg/dL AST 54 H (14-36) U/L ALT 70 H (4-34) U/L Total Protein 6.1 L (6.3-8.2) g/dL Assessment and Plan Assessment: Acute COPD exacerbation. Chest x-ray reporting background moderate underlying emphysematous change with overall mosaic attenuation with mild to moderate alveolar edema.suspected ILD in past past admission 2019. Compensated CHF, ProBNP not elevated-1390, chronic CHF exacerbation, echo pending Pulmonary hypertension Acute hypoxic respiratory failure secondary to all the above History of cardiac arrest, nonischemic cardiomyopathy with EF of 30%-subsequent echo reported recovery Hypertension Hyperlipidemia Ongoing nicotine dependence Alcohol use, daily in a patient with history of alcoholism Plan: Continue on current medication regime ,monitoring and symptomatic treatment. Nebulized bronchodilators, Pulmicort, antibiotics ordered.Cardiology and pulmonary consults in place with recommendations pending. Alcohol abstinence/ Smoking sensation reinforced. The impression and plan of care has been dictated as directed. : I performed a history and examination of this patient, discussed the same with the dictator. I agree with the dictator's note ,documented as a scribe. Any additional findings or plans will be noted.
[2021-04-28 13:29] LABS: Glucose,Whole Blood 136 mg/dL (75-99)
[2021-04-28] MEDS: INSULIN ASPART (NovoLOG) 100 UNIT/ML VIAL SQ SCH ×3 (13:36→21:10)
[2021-04-28] MEDS: IPRATROPIUM-ALBUTEROL 3 ML NEB INHALATION SCH ×3 (14:06→19:40)
[2021-04-28] MEDS: carvediloL 6.25 MG TAB PO SCH (17:12)
[2021-04-28] MEDS: MORPHINE SULFATE 2 MG/ML SYRINGE IVP PRN ×2 (17:20→21:16)
[2021-04-28] MEDS ORDERED: SYMBICORT 160-4.5 MCG INHALER INHALATION SCH (20:00)
[2021-04-28] MEDS: BUDESONIDE 1 MG/2 ML NEBU INHALATION SCH (21:04)
[2021-04-29] MEDS: methylPREDNISolone SOD SUCCI 125 MG/2 ML VIAL IV SCH ×3 (00:37→14:09)
[2021-04-29] MEDS: SODIUM CHLORIDE 0.9% 1,000 ML IV SCH ×2 (00:38→05:46)
[2021-04-29] MEDS: MORPHINE SULFATE 2 MG/ML SYRINGE IVP PRN ×2 (01:32→06:24)
[2021-04-29 02:46] VITALS: RESP 18
[2021-04-29] MEDS ORDERED: ATORVASTATIN 10 MG TAB PO SCH (03:30)
[2021-04-29] MEDS ORDERED: lisinopriL 10 MG TAB PO SCH (03:30)
[2021-04-29] MEDS ORDERED: MONTELUKAST 10 MG TAB PO SCH (03:30)
[2021-04-29] MEDS: carvediloL 6.25 MG TAB PO SCH (05:45)
[2021-04-29] MEDS ORDERED: FUROSEMIDE 10 MG/ML 2 ML VIAL IV SCH (06:00)
[2021-04-29 07:15] LABS: African American GFR (CKD) >90 (>60 ml/min/1.73 sqM); Anion Gap 6 mmol/L; Blood Urea Nitrogen 8 mg/dL (7-17); Calcium 9.4 mg/dL (8.4-10.2); Carbon Dioxide 29 mmol/L (22-30); Chloride 102 mmol/L (98-107); Glucose 139 mg/dL (74-99); Magnesium 2.1 mg/dL (1.6-2.3); Non-African American GFR(CKD) >90 (>60 ml/min/1.73 sqM); Potassium 4.8 mmol/L (3.5-5.1); Sodium 137 mmol/L (137-145)
[2021-04-29] MEDS ORDERED: PANTOPRAZOLE 40 MG TABLET PO SCH (07:30)
[2021-04-29 07:50] LABS: Glucose,Whole Blood 127 mg/dL (75-99)
[2021-04-29] MEDS: INSULIN ASPART (NovoLOG) 100 UNIT/ML VIAL SQ SCH ×2 (08:23→14:05)
[2021-04-29] MEDS: NICOTINE 21MG/24HR PATCH TRANSDERM SCH (08:33)
[2021-04-29] MEDS: AZITHROMYCIN 500 MG TAB PO SCH (08:33)
[2021-04-29 08:39] VITALS: BP 140/74; TEMP 98.3
--- NOTE | 2021-04-29 09:04 | XR ---
EXAMINATION TYPE: XR chest 1V portable DATE OF EXAM: 04/29/2021 COMPARISON: 04/28/2021 INDICATION: Dyspnea short of breath TECHNIQUE: Single frontal view of the chest is obtained. FINDINGS: The heart size is normal. The pulmonary vasculature is normal. The lungs are clear. IMPRESSION: 1. No acute pulmonary process.
[2021-04-29] MEDS: BUDESONIDE 1 MG/2 ML NEBU INHALATION SCH (09:17)
[2021-04-29] MEDS: IPRATROPIUM-ALBUTEROL 3 ML NEB INHALATION SCH (09:17)
[2021-04-29 09:37] VITALS: PULSE 88
--- NOTE | 2021-04-29 13:53 | P.PN ---
Subjective Progress Note Date: 04/29/21 A very pleasant 50-year-old female patient is known to me from previous evaluations. The patient's is known to have an extensive cardiac problems including previous history of V. fib arrest in 2019, nonischemic cardiomyopathy with an ejection fraction of 30%. She is not known to have coronary artery dis ease. She is a chronic smoker in she also has history of COPD. The patient continues to smoke about half to 1 pack of cigarettes a day. On earlier evaluations, I have noted that the patient has bilateral ground this pulmonary infiltrates and based on my follow-up on her series of CAT scans of the chest from 01/03/2021 and 04/27/2020, there was some limited improvement in the bilateral groundglass pulmonary infiltrates. There were also scattered few bilateral pulmonary nodules that were essentially inflammatory in nature. Based on that, I did a connective tissue disease workup on this patient and the patient was checked positive for STARR and this was of a low titer 1-80 and the patient also had positive anti-SUPERVISOR PATCHING antibodies. Rheumatoid factor was negative. Her angiotensin-converting enzyme level was also low. I started the patient on Advair HFA 2: 2 puffs twice a day. The plan was to monitor these areas of pneumonitis there were originally identified in January 2020. I suspected underlying interstitial lung disease including the possibility of a smoking induced ILD and other connective tissue disease related ILD's. Atypical mycobacterial infection and sarcoidosis were felt to be less likely. I referred this patient also to see a lab aid for further investigation. The patient came into the hospital yesterday because of increased shortness of breath, dyspnea, cough, chest tightness and wheezing that was going on for the past 3 days. She is fully vaccinated for COVID 19 and her COVID 19 testing came back negative. Note that she has moderately severe COPD and her FEV1 is in order of 51% of predicted which is at 1.27 L. She uses albuterol rescue inhaler on an as-needed basis. She has hypertension and hyperlipidemia as comorbid conditions. As far as her bilateral ground with pulmonary infiltrates, this could be also related to cardiomyopathy/CHF. The patient is currently under the care of Dr. Lemon regarding her cardiac disease. For now, the patient is already feeling better. Overnight, she was given a combination of bronchodilators and steroids. EKG showed normal sinus rhythm. No acute ischemic changes. CAT scan of the chest showed bilateral basilar that is emphysematous changes in addition to areas of groundglass bilateral pulmonary opacities. White cell count was at 7.6 with a hemoglobin 12.5, BUN was 11 with a creatinine of 0.4. ProBNP level was 1319. Troponin was negative. Her ejection fraction has improved on the repeat echocardiogram and her EF is up to 45-50%. No significant valvular abnormalities. She is on a combination of Coreg and lisinopril at home. She takes also Advair and Lipitor for hyperlipidemia. She is afebrile. Her cough is congested for now. She was given empiric antibiotic coverage with Zithromax and she is also on IV Solu Medrol and one of the breast units [id number]. The patient is seen today 04/29/2021 in follow-up on the regular medical floor. Currently sitting up in a chair at the bedside. She is nearly back to her baseline. Less short of breath. Less cough and congestion. She is maintaining O2 saturations were around 90% on room air. She does desaturate was some mi nimal activity. X-ray reveals no acute pulmonary process. Sodium 137. Potassium 4.8. Creatinine 0.36. Glucose 139. She is continued on DuoNeb inhalations, Pulmicort and inhalations. IV Solu-Medrol. Antibiotics in the form of ceftriaxone and azithromycin. NicoDerm patch in place. Objective - Vital Signs Vital signs: Vital Signs Temp 98.3 F 04/29/21 07:00 Pulse 88 04/29/21 09:36 Resp 18 04/29/21 07:00 BP 140/74 04/29/21 07:00 Pulse Ox 91 L 04/29/21 07:00 Intake & Output 04/28/21 04/29/21 04/29/21 18:59 06:59 18:59 Intake Total 118 Balance 118 Weight 78.4 kg Intake: Oral 118 - Exam The patient is a very pleasant 50-year-old female patient, appeared well nourished and normally developed. Vital signs as documented. Head exam is unr emarkable. No scleral icterus or corneal arcus noted. Neck is without jugular venous distension, thyromegaly, or carotid bruits. Carotid upstrokes are brisk bilaterally. Lungs sounds are diminished and the patient had diffuse expiratory wheezes throughout the lung his bilaterally. Air entry is markedly diminished in the lung bases. Cardiac exam reveals the PMI to be normally sized and situated. Rhythm is regular. First and second heart sounds normal. No murmurs, rubs or gallops. Abdominal exam reveals normal bowel sounds, no masses, no organomegaly and no aortic enlargement. Extremities are nonedematous and both femoral and pedal pulses are normal.Examination of the skin revealed no evidence of significant rashes, suspicious appearing nevi or other concerning lesions.Neurologically, the patient is awake and alert and the patient does not have any focal neurological deficit. Cranial nerves are essentially intact. - Labs CBC & Chem 7: 04/28/21 04:19 04/29/21 05:59 Labs: Abnormal Lab Results - Last 24 Hours (Table) 04/29/21 04/29/21 Range/Units 05:59 07:48 Creatinine 0.36 L (0.52-1.04) mg/dL Glucose 139 H (74-99) mg/dL POC Glucose (mg/dL) 127 H (75-99) mg/dL Assessment and Plan Assessment: 1 acute COPD exacerbation with secondary shortness of breath. CT angiogram of the chest was done and there is no evidence of any pneumonia. The patient's been vaccinated for Covid 19 and her testing came back negative. She is already feeling better with a combination of bronchodilators and steroids. CAT scan of the chest showed some chronic bilateral groundglass pulmonary changes. 2 chronic and nonspecific bilateral groundglass pulmonate changes. ILD was suspected. The patient has a positive STARR and anti-SUPERVISOR PATCHING antibodies. I have referred this patient to a lab aid for an underlying connective tissue disease workup. No lung biopsies of been done yet and these findings are essentially chronic. Underlying lupus versus mixed connective tissue disease disorder. The patient is currently seeing Dr. Mckeon from rheumatology. 2 CHF with ejection fraction of around 45% 3 dyspnea and cough secondary to above 4 previous history of cardiac arrest 5 COPD 6 smoking 7 history of alcoholism 8 hypertension 9 hyperlipidemia Plan The patient was seen and evaluated by Dr. Armstrong Titrate the FiO2 as tolerated Cleared for discharged home Complete prednisone taper starting at 40 mg daily for 4 days Educated regarding the importance of complete smoking cessation Continue her home Advair, Singulair, albuterol Follow-up in the office in 1-2 weeks' I, the cosigning physician, performed a history & physical examination of the patient. Lungs sounds with faint expiratory wheeze, diminished Maintaining good O2 saturations in the 90s on room air. I discussed the assessment and plan of care with my nurse practitioner, Eileen Hendrix. I attest to the above note as dictated by her.
--- NOTE | 2021-04-29 15:17 | P.PN ---
Subjective Progress Note Date: 04/29/21 HISTORY OF PRESENTING ILLNESS This is a pleasant 50-year-old female past medical history significant for c hronic nicotine dependence, history of cocaine use, daily alcohol use, hypertension, hyperlipidemia, V fib arrest in 2019 at [facility] in 2019 nonischemic cardiomyopathy EF of 30% with recovered EF, Cardiac cath in 2019 at [facility] with normal coronary arteries, recent diagnosis of COPD. She follows in the office with Dr. Coles. We have been asked to see in consultation for congestive heart failure. Patient is seen and examined in the emergency department. Patient presents emergency department with worsening shortness of breath, cough, wheezing for the past 13 days. Her symptoms progressively got worse and decided to present to the emergency department for further evaluation. She also endorses some chest discomfort when she coughs. Her chest pain is nonradiating, nonexertional. She denies any associated nausea, diaphoresis, lightheadedness, dizziness, or palpitations. She denies fever, chills. She denies any symptoms of presyncope or syncope. She does endorse symptoms of orthopnea. She also has trouble sleeping due to her difficulty breathing. She states she drinks about 3 beers per day. She states she currently smoke 1/2-1PPD, and states she used to smoke more. She denies any current illicit drug use. She does state that she is compliant with her medi cation. DIAGNOSTICS EKG reveals sinus rhythm, heart rate 80, t wave inversion in lead aVL, no sign ificant ST-T wave abnormalities. Prior EKG in 2019 with similar findings. Chest xray report revealed a small linear infiltrate or atelectasis left mid lung compared to old exam. CT chest revealed no pulmonary embolism. Background emphysematous change. Few tiny calcified nodules or granulomas in the left upper lobe. Enlarged main pulmonary artery of 3.6 cm. No cardiomegaly. Laboratory reviewed, WBC 7.6, hemoglobin 12.5, platelets 242, d-dimer 0.86, sodium 131, potassium 4.7, BUN 11, serum creatinine 0.4, AST 54, ALT 70, proBNP 1390, prior BNP 68, troponin negative 1 Current home medications include lisinopril 30 mg daily, carvedilol 6.25 mg twice a day, Singulair, Advair, atorvastatin 10 mg daily Most recent echocardiogram 01/2020 revealed EF 5055 percent, mild mitral regurgitation Holter monitor in the office 04/2020 revealed sinus mechanism, occasional premature beats. 04/29/2021: Patient states her breathing is much better and she feels like $1 million. She denies any lower extremity edema. She is planning to quit smoking at this time. Repeat chest x-ray reveals no acute pulmonary process. Patient has been followed by pulmonary medicine as well. BUN is 8 and creatinine 0.36. Potassium 4.8. Echocardiogram reveals EF of 45-50%, mild mitral regurgitation, mild tricuspid regurgitation, mild pulmonary hypertension. PHYSICAL EXAMINATION Blood pressure 140/74, heart rate 72-92, pulse ox 91% on 3 L, afebrile CONSTITUTIONAL: No apparent distress. HEENT: Head is normocephalic. Pupils are equal, round. Sclerae anicteric. Mucous membranes of the mouth are moist. No JVD. No carotid bruit. CHEST EXAMINATION: Lungs with Few scattered expiratory wheezes. No chest wall tenderness is noted on palpation or with deep breathing. HEART EXAMINATION: Regular rate and rhythm. S1, S2 heard. Systolic murmur noted ABDOMEN: Soft, nontender. Positive bowel sounds. EXTREMITIES: 2+ peripheral pulses, no lower extremity edema and no calf tenderness. SKIN: warm, dry NEUROLOGIC EXAMINATION: Patient is awake, alert and oriented x3. ASSESSMENT Acute on chronic diastolic heart failure COPD exacerbation History of Ventricular fibrillation arrest History of nonischemic cardiomyopathy with recovered EF History of cocaine use Chronic nicotine dependence Daily alcohol use History of Hypertension History of Hyperlipidemia PLAN Discontinue IV Lasix and start 40 mg oral daily Monitor renal function and electrolytes I/Os daily weights Continue home cardiac mediations, coreg, statin, and lisinopril Smoking and alcohol cessation discussed and highly recommended. Pulmonary consulted, appreciate recommendations Patient is cleared from cardiology for discharge. Further recommendations based on clinical course Thank you kindly for this consultation. Nurse Practitioner note has been reviewed, I agree with a documented findings and plan of care. Patient was seen and examined. Objective - Vital Signs Vital signs: Vital Signs Temp 98.3 F 04/29/21 07:00 Pulse 88 04/29/21 09:36 Resp 18 04/29/21 07:00 BP 140/74 04/29/21 07:00 Pulse Ox 91 L 04/29/21 07:00 Intake & Output 04/28/21 04/29/21 04/29/21 18:59 06:59 18:59 Intake Total 118 Balance 118 Weight 78.4 kg Intake: Oral 118 - Labs CBC & Chem 7: 04/28/21 04:19 04/29/21 05:59 Labs: Abnormal Lab Results - Last 24 Hours (Table) 04/28/21 04/29/21 04/29/21 Range/Units 13:27 05:59 07:48 Creatinine 0.36 L (0.52-1.04) mg/dL Glucose 139 H (74-99) mg/dL POC Glucose (mg/dL) 136 H 127 H (75-99) mg/dL
[2021-04-30] MEDS ORDERED: FUROSEMIDE 40 MG TAB PO SCH (09:00)
== END 2021-04-29 15:20 | disposition home or self-care (01) ==
LOC: EC 03:38 → 6NMEDSUR 05:25
PROVIDERS: ADMIT Family Medicine; ATTEND Family Medicine
DX: J44.1 Chronic obstructive pulmonary disease with (acute) exacerbation (principal); J96.01 Acute respiratory failure with hypoxia; J45.901 Unspecified asthma with (acute) exacerbation; I11.0 Hypertensive heart disease with heart failure; I50.33 Acute on chronic diastolic (congestive) heart failure; I42.8 Other cardiomyopathies; I08.1 Rheumatic disorders of both mitral and tricuspid valves; I27.20 Pulmonary hypertension, unspecified; F10.20 Alcohol dependence, uncomplicated; R76.8 Other specified abnormal immunological findings in serum; E78.5 Hyperlipidemia, unspecified; F17.210 Nicotine dependence, cigarettes, uncomplicated; Z20.822 Contact with and (suspected) exposure to COVID-19; Z79.82 Long term (current) use of aspirin; Z79.899 Other long term (current) drug therapy; Z87.898 Personal history of other specified conditions; Z79.51 Long term (current) use of inhaled steroids; Z86.74 Personal history of sudden cardiac arrest; Z90.49 Acquired absence of other specified parts of digestive tract; Z87.01 Personal history of pneumonia (recurrent); Z98.51 Tubal ligation status; Z98.890 Other specified postprocedural states; Z71.41 Alcohol abuse counseling and surveillance of alcoholic; Z71.6 Tobacco abuse counseling; Z80.9 Family history of malignant neoplasm, unspecified; Z84.89 Family history of other specified conditions; Z82.49 Family history of ischemic heart disease and other diseases of the circulatory system; Z82.5 Family history of asthma and other chronic lower respiratory diseases
CPT/HCPCS: 96376 ×2; 96361 ×3; 96366 ×2; 96365; 96375; 99285; 36415; 94640 ×3; 93005; 93306; 85379; 83880; 80053; 80048; 83615; 83735 ×2; 84484; 85025; 85610; 85730; 86140; 84145; 87635; 71045 ×2; 71275; G0378 ×2; S4990 ×2; J1940 ×2; J2930 ×2; J0696 ×2; J2270 ×2; C9113; Q9967

== ENCOUNTER 2021-05-01 01:30 | Emergency (ER) | payer OTHER ==
[2021-05-01] MEDS ORDERED: ALBUTEROL NEBULIZED 2.5 MG/3 ML INHALATION STA (02:26)
[2021-05-01] MEDS ORDERED: IPRATROPIUM 0.5 MG/2.5 ML NEBU INHALATION STA (02:26)
--- NOTE | 2021-05-01 02:27 | ED ---
SOB HPI - General Chief Complaint: Shortness of Breath Stated Complaint: KRYSTAL Time Seen by Provider: 05/01/21 02:11 Source: patient, RN notes reviewed, old records reviewed Mode of arrival: wheelchair Limitations: no limitations - History of Present Illness Initial Comments: This is a 50-year-old female to the ER for evaluation. Patient presents today f or evaluation regards to shortness breath or cough or congestion. No fevers no travel history no sick contacts. Denying coronavirus. No chest pain. Patient has history of chest pain angina and COPD MD Complaint: shortness of breath, cough, chest pain -: days(s) Severity: moderate Severity scale (1-10): 4 Quality: dull Consistency: intermittent Improves With: nothing Worsens With: nothing Known History Of: COPD Context: recent URI Associated Symptoms: denies other symptoms, cough Treatments Prior to Arrival: none - Related Data Home Medications Medication Instructions Recorded Confirmed Atorvastatin [Lipitor] 10 mg PO DAILY@0330 01/22/20 04/28/21 Fluticasone/Salmeterol [Advair Hfa 2 puff INHALATION RT-BID 04/28/21 04/28/21 230-21 Mcg Inhaler] Montelukast [Singulair] 10 mg PO DAILY@0330 04/28/21 04/28/21 carvediloL [Coreg] 6.25 mg PO BID@0330,1530 04/28/21 04/28/21 lisinopriL 30 mg PO DAILY@0330 04/28/21 04/28/21 Previous Rx's Medication Instructions Recorded Furosemide [Lasix] 40 mg PO DAILY #30 tab 04/29/21 Ipratropium-Albuterol Nebulize 3 ml INHALATION RT-QID #0 ml 04/29/21 [Duoneb 0.5 mg-3 mg/3 ml Soln] predniSONE See Taper PO DIRECTED #40 tab 04/29/21 Albuterol Nebulized [Ventolin 2.5 mg INHALATION Q4H PRN #25 each 05/01/21 Nebulized] Albuterol Sulfate [Proair Hfa] 1 - 2 puff INHALATION Q4H PRN #8.5 05/01/21 gm Allergies Allergy/AdvReac Type Severity Reaction Status Date / Time No Known Allergies Allergy Verified 05/01/21 01:53 Review of Systems ROS Statement: Those systems with pertinent positive or pertinent negative responses have been documented in the HPI. ROS Other: All systems not noted in ROS Statement are negative. Past Medical History Past Medical History: Chest Pain / Angina, COPD, Hypertension Additional Past Medical History / Comment(s): Pt states went to ER with chest pain/HTN and sent home then went to work and had a cardiac arrest in 2019/pt states she had echo and cardiac cath-all normal-no cause ever found for arrest, sinus issues. History of Any Multi-Drug Resistant Organisms: None Reported Past Surgical History: Back Surgery, Cholecystectomy, Heart Catheterization, Orthopedic Surgery, Tubal Ligation Additional Past Surgical History / Comment(s): 2019 normal cardiac cath, L$-L% discectomy Past Anesthesia/Blood Transfusion Reactions: No Reported Reaction Past Psychological History: No Psychological Hx Reported Smoking Status: Current every day smoker Past Alcohol Use History: None Reported Past Drug Use History: None Reported - Past Family History Father Family Medical History: Cancer Additional Family Medical History / Comment(s): Father at the age of 37 yrs from cancer from agent orange exposure in [place] per pt. Mother Family Medical History: Congestive Heart Failure (CHF), COPD, Myocardial Infarction ([place]) Additional Family Medical History / Comment(s): Mother had a [place] at the age of 60 yrs. She is 67yrs old. General Exam Limitations: no limitations General appearance: alert, in no apparent distress, anxious Head exam: Present: atraumatic, normocephalic, normal inspection Eye exam: Present: normal appearance, PERRL, EOMI. Absent: scleral icterus, conjunctival injection, periorbital swelling ENT exam: Present: normal exam, mucous membranes moist Neck exam: Present: normal inspection. Absent: tenderness, meningismus, lymphadenopathy Respiratory exam: Present: wheezes, decreased breath sounds, prolonged expiratory. Absent: respiratory distress, rales, rhonchi, stridor Cardiovascular Exam: Present: regular rate, normal rhythm, normal heart sounds. Absent: systolic murmur, diastolic murmur, rubs, gallop, clicks GI/Abdominal exam: Present: soft, normal bowel sounds. Absent: distended, tenderness, guarding, rebound, rigid Extremities exam: Present: normal inspection, full ROM, normal capillary refill. Absent: tenderness, pedal edema, joint swelling, calf tenderness Back exam: Present: normal inspection Neurological exam: Present: alert, oriented X3, CN II-XII intact Psychiatric exam: Present: normal affect, normal mood Skin exam: Present: warm, dry, intact, normal color. Absent: rash Course Vital Signs 05/01/21 05/01/21 05/01/21 01:51 02:44 02:53 Temperature 99.3 F Pulse Rate 99 88 Respiratory 24 22 Rate Blood Pressure 116/66 O2 Sat by Pulse 90 L Oximetry 05/01/21 05/01/21 05/01/21 03:27 04:02 05:35 Temperature 98.9 F Pulse Rate 95 101 H 74 Respiratory 22 20 Rate Blood Pressure 157/98 O2 Sat by Pulse 96 97 Oximetry - Reevaluation(s) Reevaluation #1: Medical record is reviewed Patient symptoms are significantly improved here in the ER Patient informed results and questions answered Medical Decision Making - Medical Decision Making 50 female DF for evaluation, patient is acute exacerbation COPD and asthma. Symptoms improved here in the ER she prefers discharged home Disposition Clinical Impression: Asthma with acute exacerbation, Acute exacerbation of chronic obstructive pulmonary disease Disposition: HOME SELF-CARE Condition: Good Instructions (If sedation given, give patient instructions): Asthma (ED), Acute Bronchitis (ED), Chronic Bronchitis (ED), Bronchospasm (ED) Prescriptions: Albuterol Sulfate [Proair Hfa] 1 - 2 puff INHALATION Q4H PRN #8.5 gm PRN Reason: Shortness Of Breath Albuterol Nebulized [Ventolin Nebulized] 2.5 mg INHALATION Q4H PRN #25 each PRN Reason: Shortness Of Breath Is patient prescribed a controlled substance at d/c from ED?: No Referrals: Gabe Youssef MD [Primary Care Provider] - 1-2 days
[2021-05-01 05:41] VITALS: BP 157/98; PULSE 74; RESP 20; TEMP 98.9
== END 2021-05-01 05:35 | disposition home or self-care (01) ==
LOC: EC 01:30
DX: J44.1 Chronic obstructive pulmonary disease with (acute) exacerbation (principal); J45.901 Unspecified asthma with (acute) exacerbation; I10 Essential (primary) hypertension; F17.200 Nicotine dependence, unspecified, uncomplicated; Z79.899 Other long term (current) drug therapy
CPT/HCPCS: 94640; 99284

== ENCOUNTER 2021-08-10 08:45 | Inpatient (IN) | payer OTHER ==
[2021-08-22 11:57] VITALS: BMI 32.8
[2021-08-24] MEDS ORDERED: SCOPOLAMINE 1.5MG/72HR PATCH TRANSDERM ONE (05:53)
[2021-08-24] MEDS ORDERED: LACTATED RINGERS 1,000 ML IV SCH (05:53)
[2021-08-24] MEDS ORDERED: DEXAMETHASONE SOD PHOSPHATE 4 MG/ML 1 ML VIAL IV ONE (05:53)
[2021-08-24] MEDS ORDERED: MIDAZOLAM 2 MG/2 ML VIAL IV PRN (05:53)
[2021-08-24] MEDS ORDERED: ONDANSETRON 4 MG/2 ML VIAL IVP ONE (05:53)
[2021-08-24 06:27] LABS: Glucose,Whole Blood 111 mg/dL (75-99)
[2021-08-24] MEDS ORDERED: MIDAZOLAM 2 MG/2 ML VIAL IVP ONE (06:50)
[2021-08-24] MEDS ORDERED: HYDROmorphone 0.5 MG/0.5 ML SYRINGE IVP PRN (07:00)
[2021-08-24] MEDS ORDERED: HYDROCORTISONE SUCCINATE 100 MG/2 ML VIAL IVP ONE (07:15)
[2021-08-24] MEDS ORDERED: ROPIVACAINE 5 MG/ML 30 ML VIAL ONE (07:25)
[2021-08-24] MEDS ORDERED: ROCURONIUM 10 MG/ML (5 ML VIAL) IV ONE (07:25)
[2021-08-24] MEDS ORDERED: LIDOCAINE 1% INJ 10MG/ML (20 ML MDV) ONE (07:25)
[2021-08-24] MEDS ORDERED: GLYCOPYRROLATE 0.2 MG/ML 2 ML VIAL ONE (07:25)
[2021-08-24] MEDS ORDERED: MIDAZOLAM 2 MG/2 ML VIAL ONE (07:25)
[2021-08-24] MEDS ORDERED: NEOSTIGMINE 1 MG/ML 10 ML VIAL ONE (07:25)
[2021-08-24] MEDS ORDERED: fentaNYL (PF) 50 MCG/ML 2 ML AMP ONE (07:25)
[2021-08-24] MEDS ORDERED: SUCCINYLCHOLINE CHLORIDE VIAL 200 MG/10 ML VIAL IV ONE (07:25)
[2021-08-24] MEDS ORDERED: SODIUM CHLORIDE 0.9% (PF) 10 ML VIAL ONE (07:25)
[2021-08-24] MEDS ORDERED: PROPOFOL 10 MG/ML 20 ML VIAL IV ONE (07:25)
--- NOTE | 2021-08-24 08:06 | P.ANPRN ---
Procedure Note - Anesthesia - Nerve Block Performed Left Erector Spinae Time Out Performed: Yes (06:50) Date of Procedure: 08/24/21 Procedure Start Time: :50 Procedure Stop Time: 06:59 Location of Patient: PreOp Indication: Acute Post-Operative Pain, Requested by Surgeon (Dr Mann) Sedation Type: Sedate with meaningful contact maintained Preparation: Sterile Prep Position: Prone Catheter: None Needle Types: Pajunk Needle Gauge: 21 Ultrasound used to visualize needle placement: Yes Ultrasound used to observe medication spread: Yes Injectate: 0.5% Ropivacaine (see comment for volume) (15cc +10cc PF Normal saline) Blood Aspirated: No Pain Paresthesia on Injection Noted: No Resistance on Injection: Normal Image Stored and Saved: Yes Events: Uneventful and Well Tolerated
[2021-08-24] MEDS ORDERED: BUPIVACAINE (PF) 0.5% 30 ML VIAL SQ ONE ×2 (08:09→08:25)
[2021-08-24] MEDS ORDERED: LACTATED RINGERS 1,000 ML IV ONE (09:02)
--- NOTE | 2021-08-24 09:09 | P.OP ---
Date of Procedure: 08/24/21 Preoperative Diagnosis: Bilateral groundglass pulmonary infiltrates Postoperative Diagnosis: Same Procedure(s) Performed: Left thoracoscopic lung biopsy Implants: None Anesthesia: GETA Surgeon: Juan Mann Estimated Blood Loss (ml): 10 IV fluids (ml): 500 Urine output (ml): 0 Pathology: other (Biopsy of left upper and lower lobes for pathology and cultures) Condition: stable Disposition: PACU Indications for Procedure: 50-year-old female with progressive dyspnea and lateral pulmonary infiltrate Operative Findings: Poor lung compliance, no evidence of other abnormality in the lung grossly Description of Procedure: Patient was brought to the operating room, placed supine on the operating table, anesthetized and intubated with a double-lumen endotracheal tube. Tube was positioned with fiberoptic bronchoscopy. No endobronchial lesions were noted. Patient was turned in the right lateral decubitus position and the left chest sterilely prepped and draped. 3 one-inch incisions were made in the left chest and video thoracoscope introduced. Lung compliance was poor and we deflated the lung as best as possible. Biopsies were taken from the upper and lower lobes. These were cut on the back table and a small portion sent for culture the remainder was sent for pathology. Staple lines were intact. 28-Bel[place]an chest tube was placed through the anteriormost incision and positioned posterior apically. It was secured with an 0 Ethibond suture. Lung was inflated under thoracoscopic visualization. Incisions were closed with layers of Vicryl suture. Skin glue and dry sterile dressings were applied. The patient was turned supine and extubated and transferred to recovery in stable condition.
[2021-08-24] MEDS ORDERED: ALBUTEROL NEBULIZED 2.5 MG/3 ML INHALATION ONE ×3 (09:14→10:00)
[2021-08-24] MEDS ORDERED: IPRATROPIUM-ALBUTEROL 3 ML NEB INHALATION PRN (09:22)
[2021-08-24] MEDS ORDERED: ONDANSETRON 4 MG/2 ML VIAL IVP PRN (09:22)
[2021-08-24] MEDS ORDERED: methylPREDNISolone SOD SUCCI 125 MG/2 ML VIAL IVP ONE (09:38)
--- NOTE | 2021-08-24 09:39 | XR ---
EXAMINATION TYPE: XR chest 1V portable DATE OF EXAM: 08/24/2021 COMPARISON: 08/13/2021 HISTORY: Postsurgical TECHNIQUE: Single frontal view of the chest is obtained. FINDINGS: ET tube approximately 2.5 cm above ju[place]. There is a interstitial pattern with subsegment al changes at the left perihilar region. Left-sided chest tube seen with less than 5% left apical pne umothorax. A prominent gastric bubble noted with reduced inspiration. Probable tiny granuloma right u pper lobe. IMPRESSION: 1. Postoperative change with tiny less than 5% left apical pneumothorax. 2. Correlate for left perihilar atelectasis versus developing infiltrate.
[2021-08-24] MEDS ORDERED: KETOROLAC 15 MG/ML 1 ML VIAL IVP ONE (10:26)
--- NOTE | 2021-08-24 11:41 | P.CNPUL ---
History of Present Illness Consult date: 08/24/21 Requesting physician: Juan Mann Reason for consult: dyspnea, hypoxemia, pulmonary fibrosis, abnormal CXR/CT Chief complaint: Shortness of breath, abnormal CAT scan. History of present illness: Pulmonary consult dated 08/24/2021. 50-year-old female who sees my partner, Dr. Armstrong, for shortness of breath. The patient was discovered to have diffuse bilateral groundglass infiltrates. T he patient was sent to Dr. Mann for consideration of a thorascopic lung biopsy. That was performed today. The patient was extubated, and developed respiratory distress after the procedure, had to be reintubated. The patient was seen today in phase I recovery, and at that point, was on a simple mask. He did receive corticosteroids, which helped her to be extubated second time. Clinically she looks relatively well. The patient will be admitted to room 357. She does have some mild shortness of breath at this time. A bit of a dry nonproductive cough as well. She has a left-sided chest tube. There is no air leak. She had biopsies of the left upper lobe and lower lobe. No laboratory to speak of. Chest x-ray shows post surgical changes, a 5% left apical pneumothorax, and a left-sided chest tube. Review of Systems REVIEW OF SYSTEMS: CONSTITUTIONAL: [Negative.] NEUROLOGIC: [ Negative.] HEENT: [ Negative.] CARDIAC: [Negative.] PULMONARY: Shortness of breath and cough. GI: [Negative.] : [Negative.] RHEUMATOLOGIC: [ Negative.] IMMUNOLOGIC: [ Negative.] ENDOCRINE: [Negative. ] DERMATOLOGIC: [Negative.] Past Medical History Past Medical History: Chest Pain / Angina, COPD, Hypertension Additional Past Medical History / Comment(s): hx. in 2019 of going to ER with chest pain/HTN and sent home then went to work and had a cardiac arrest in 2019/pt states she had echo and cardiac cath-all normal-no cause ever found for arrest, no recent chest pain issues, sinus problems, recent adm. for COPD exacerbation, d/c 08-16-21 History of Any Multi-Drug Resistant Organisms: None Reported Past Surgical History: Back Surgery, Cholecystectomy, Heart Catheterization, Orthopedic Surgery, Tubal Ligation Additional Past Surgical History / Comment(s): 2019 normal cardiac cath @[facility], L4-L5 discectomy Past Anesthesia/Blood Transfusion Reactions: No Reported Reaction Smoking Status: Current every day smoker - Past Family History Father Family Medical History: Cancer Additional Family Medical History / Comment(s): Father at the age of 37 yrs from cancer from agent orange exposure in [place] per pt. Mother Family Medical History: Congestive Heart Failure (CHF), COPD, Myocardial Infarction (WA) Additional Family Medical History / Comment(s): Mother had a WA at the age of 60 yrs. She is 67yrs old. Medications and Allergies Home Medications Medication Instructions Recorded Confirmed Type Atorvastatin [Lipitor] 10 mg PO DAILY 01/22/20 08/24/21 History Fluticasone/Salmeterol [Advair Hfa 2 puff INHALATION RT-BID 04/28/21 08/24/21 History 230-21 Mcg Inhaler] carvediloL [Coreg] 6.25 mg PO BID 04/28/21 08/24/21 History lisinopriL 30 mg PO DAILY 04/28/21 08/24/21 History Albuterol Sulfate [Proair Hfa] 2 puff INHALATION RT-QID PRN 08/13/21 08/24/21 History Loratadine [Claritin] 10 mg PO DAILY 08/13/21 08/24/21 History Prazosin [Minipress] 1 mg PO HS 08/13/21 08/24/21 History Tiotropium 18 Mcg/Puff [Spiriva] 2 puff INHALATION RT-DAILY 08/13/21 08/24/21 History Nicotine 14Mg/24Hr Patch [Habitrol] 1 patch TRANSDERM DAILY #30 patch 08/15/21 08/22/21 Rx QUEtiapine [SEROquel] 25 mg PO HS #15 tab 08/15/21 08/24/21 Rx Ipratropium-Albuterol Nebulize 3 ml INHALATION RT-QID PRN 08/22/21 08/24/21 History [Duoneb 0.5 mg-3 mg/3 ml Soln] predniSONE See Taper PO DIRECTED 08/22/21 08/24/21 History Allergies Allergy/AdvReac Type Severity Reaction Status Date / Time No Known Allergies Allergy Verified 08/24/21 06:15 Physical Exam Osteopathic Statement: *. No significant issues noted on an osteopathic structural exam other than those noted in the History and Physical/Consult. Vitals: Vital Signs Temp Pulse Pulse Resp BP BP Pulse Ox 08/24/21 11:00 88 16 125/71 92 L 08/24/21 10:45 88 16 110/65 93 L 08/24/21 10:25 89 16 107/60 92 L 08/24/21 10:10 90 16 136/63 92 L 08/24/21 09:55 91 16 131/61 93 L 08/24/21 09:40 92 92 18 116/60 92 L 08/24/21 09:26 83 08/24/21 09:25 92 14 143/88 99 08/24/21 09:10 97.1 F L 81 10 L 158/78 99 08/24/21 06:25 16 97 08/24/21 06:18 96.7 F L 103 H 17 141/59 91 L Intake and Output 08/23/21 08/24/21 08/24/21 22:59 06:59 14:59 Intake Total 400 950 Output Total 10 Balance 400 940 Intake: IV 400 950 Output: Estimated Blood Loss 10 Other: Weight 80.7 kg No acute distress, oriented 3. The patient has a simple mask in place. Saturations are in the mid 90s. HEENT examination is grossly unremarkable. Neck supple. Full range of motion. No adenopathy thyromegaly or neck vein distention. Cardiovascular examination reveals regular rhythm rate. S1-S2 normal. No S3 or S4. No discernible murmur noted. Heart rate 88 bpm. Lungs reveal mild scattered rhonchi. Minimal crackles appreciated. No wheezes. Saturations are mid 90s on 6 L simple mask. Abdomen soft bowel sounds are heard. No masses or tenderness. Extremities are intact. No cyanosis clubbing or edema. Skin is without rash or lesion. Neurologic examination is brief but nonfocal. Results - Laboratory Findings Abnormal lab findings: Abnormal Labs 08/24/21 06:23 POC Glucose (mg/dL) 111 H - Diagnostic Findings Chest x-ray: image reviewed Assessment and Plan Assessment: Postop day #0, status post thoracoscopic left lung biopsy, for interstitial disease/groundglass opacities. History of COPD, secondary to chronic tobacco use. History of CHF. Prior history of cardiac arrest. History of chronic tobacco use. History of alcoholism. History of essential hypertension. History of hyperlipidemia. Rule out autoimmune lung disease. Plan: Plan dated 08/24/2021. The patient is seen in the phase I recovery area. The patient's on a simple face mask. The patient apparently developed respiratory distress after extubation initially, was reintubated, receive some IV corticosteroids, and then was successfully re-extubated. Currently, the patient appears relatively stable. She had biopsies performed of the left upper lobe and left lower lobe. She has a left-sided chest tube. There is no air leak. Was given a breathing treatment. We will continue to follow make recommendations where appropriate. Await pathology reports. Time with Patient: Greater than 30
[2021-08-24] MEDS: ATORVASTATIN 10 MG TAB PO SCH (11:46)
[2021-08-24] MEDS: lisinopriL 10 MG TAB PO SCH (11:46)
[2021-08-24] MEDS: carvediloL 6.25 MG TAB PO SCH ×2 (11:46→17:48)
[2021-08-24] MEDS: LORATADINE 10 MG TAB PO SCH (11:46)
[2021-08-24] MEDS: NICOTINE 14MG/24HR PATCH TRANSDERM SCH (11:52)
[2021-08-24] MEDS: KETOROLAC 15 MG/ML 1 ML VIAL IVP SCH ×3 (12:53→23:22)
[2021-08-24] MEDS: traMADol 50 MG TAB PO SCH ×3 (12:54→23:23)
[2021-08-24] MEDS ORDERED: IPRATROPIUM 0.5 MG/2.5 ML NEBU INHALATION ONE (15:16)
[2021-08-24] MEDS: DEXTROSE 5%-0.45% NACL 1,000 ML IV SCH (17:47)
[2021-08-24] MEDS: HEPARIN SODIUM,PORCINE/PF 5,000 UNIT/0.5 ML SYRINGE SQ SCH ×2 (17:48→23:23)
[2021-08-24] MEDS: SYMBICORT 160-4.5 MCG INHALER INHALATION SCH (19:20)
[2021-08-24] MEDS ORDERED: PRAZOSIN 1 MG CAP PO SCH (21:00)
[2021-08-24] MEDS ORDERED: QUEtiapine 25 MG TAB PO SCH (21:00)
[2021-08-24] MEDS: ACETAMINOPHEN TAB 325 MG TAB PO PRN (21:09)
[2021-08-25] MEDS: ACETAMINOPHEN TAB 325 MG TAB PO PRN ×2 (03:42→18:02)
[2021-08-25] MEDS: traMADol 50 MG TAB PO SCH (06:16)
[2021-08-25] MEDS: carvediloL 6.25 MG TAB PO SCH ×2 (06:17→17:06)
[2021-08-25] MEDS: KETOROLAC 15 MG/ML 1 ML VIAL IVP SCH ×3 (06:17→17:06)
[2021-08-25] MEDS: DEXTROSE 5%-0.45% NACL 1,000 ML IV SCH (06:23)
[2021-08-25 07:07] LABS: Anisocytosis Slight; Basophils % (A) 0 %; Eosinophils # (A) 0.1 k/uL (0-0.7); Eosinophils % (A) 0 %; HCT 47.3 % (34.0-46.0); HGB 12.8 gm/dL (11.4-16.0); Hypochromasia Marked; Lymphocytes # (A) 1.3 k/uL (1.0-4.8); Lymphocytes % (A) 7 %; MCH 22.9 pg (25.0-35.0); MCHC 27.1 g/dL (31.0-37.0); MCV 84.7 fL (80.0-100.0); Mean Platelet Volume 6.9; Monocytes # (A) 1.1 k/uL (0-1.0); Monocytes % (A) 6 %; Neutrophils # (A) 15.4 k/uL (1.3-7.7); Neutrophils % (A) 85 %; Platelet Count 278 k/uL (150-450); RBC 5.59 m/uL (3.80-5.40); RDW 17.8 % (11.5-15.5); WBC 18.1 k/uL (3.8-10.6)
--- NOTE | 2021-08-25 07:12 | XR ---
EXAMINATION TYPE: XR chest 2V DATE OF EXAM: 08/25/2021 COMPARISON: 08/24/2021 HISTORY: post vats TECHNIQUE: Frontal and lateral views of the chest are obtained. FINDINGS: Left-sided chest tube is in place. Pneumothorax is not identified at this time. Patchy density left perihilar region and basilar regions with small effusions. Increased slightly. The cardiac silhouette size is within normal limits. The osseous structures are grossly intact. IMPRESSION: 1. Pneumothorax is not identified at this time. 2.Patchy density left perihilar region and basilar regions with small effusions. Increased slightly.
[2021-08-25 07:25] LABS: African American GFR (CKD) >90 (>60 ml/min/1.73 sqM); Anion Gap -2 mmol/L; Blood Urea Nitrogen 14 mg/dL (7-17); Calcium 8.7 mg/dL (8.4-10.2); Carbon Dioxide 36 mmol/L (22-30); Chloride 99 mmol/L (98-107); Glucose 84 mg/dL (74-99); Non-African American GFR(CKD) >90 (>60 ml/min/1.73 sqM); Potassium 5.5 mmol/L (3.5-5.1); Sodium 133 mmol/L (137-145)
[2021-08-25] MEDS: SYMBICORT 160-4.5 MCG INHALER INHALATION SCH (07:42)
[2021-08-25] MEDS: IPRATROPIUM 0.5 MG/2.5 ML NEBU INHALATION SCH ×3 (07:42→16:35)
[2021-08-25] MEDS: lisinopriL 10 MG TAB PO SCH (08:22)
[2021-08-25] MEDS: HEPARIN SODIUM,PORCINE/PF 5,000 UNIT/0.5 ML SYRINGE SQ SCH ×2 (08:26→16:01)
[2021-08-25] MEDS: ATORVASTATIN 10 MG TAB PO SCH (08:26)
[2021-08-25] MEDS: NICOTINE 14MG/24HR PATCH TRANSDERM SCH (08:26)
[2021-08-25] MEDS: LORATADINE 10 MG TAB PO SCH (08:26)
--- NOTE | 2021-08-25 11:13 | P.PN ---
Subjective Progress Note Date: 08/25/21 Principal diagnosis: Interstitial lung disease. Pulmonary consult dated 08/24/2021. 50-year-old female who sees my partner, Dr. Armstrong, for shortness of breath. The patient was discovered to have diffuse bilateral groundglass infiltrates. The patient was sent to Dr. Mann for consideration of a thorascopic lung biopsy. That was performed today. The patient was extubated, and developed respiratory distress after the procedure, had to be reintubated. The patient was seen today in phase I recovery, and at that point, was on a simple mask. He did receive corticosteroids, which helped her to be extubated second time. Clinically she looks relatively well. The patient will be admitted to room 357. She does have some mild shortness of breath at this time. A bit of a dry nonproductive cough as well. She has a left-sided chest tube. There is no air leak. She had biopsies of the left upper lobe and lower lobe. No laboratory to speak of. Chest x-ray shows post surgical changes, a 5% left apical pneumothorax, and a left-sided chest tube. Progress note dated 08/25/2021. This is a 50-year-old female who had a thoracoscopic left lung biopsy yesterday. Today's postop day #1. She has no leak from the chest tube. Dr. Mann did the surgery. She sees my partner in the office. The patient looks like she is doing relatively well. She is on 4 L nasal cannula. She has a left chest tube in place. Today's postop day #1. Labs today include a white count of 18.1, hemoglobin 12.8, hematocrit 47.3, and platelet count 278,000. Sodium 133, potassium 5.5, chlorides 89, CO2 36, BUN 14, and creatinine 0.61. Chest x-ray reveals some postoperative changes, and some mild atelectasis. No pneumothorax is noted. Objective - Vital Signs Vital signs: Vital Signs Temp 98.3 F 08/25/21 07:26 Pulse 88 08/25/21 07:53 Resp 16 08/25/21 08:00 BP 101/70 08/25/21 07:26 Pulse Ox 93 L 08/25/21 07:26 Intake & Output 08/24/21 08/25/21 08/25/21 18:59 06:59 18:59 Intake Total 1068 600 540 Output Total 590 1404 0 Balance 478 -804 540 Weight 80.7 kg Intake: IV 950 Oral 118 600 540 Output: Chest Tube Drainage 80 4 0 Chest Tube Left Mid- 80 4 0 Axillary Chest Urine 500 1400 Estimated Blood Loss 10 Other: Voiding Method Toilet Bedside Commode # Voids 1 1 # Bowel Movements 0 - Exam No acute distress, oriented 3. 4 L saturation is 93%. HEENT examination is grossly unremarkable. Neck supple. Full range of motion. No adenopathy thyromegaly or neck vein distention. Cardiovascular examination reveals regular rhythm rate. S1-S2 normal. No S3 or S4. No discernible murmur noted. Heart rate 88 bpm. Lungs reveal mild scattered rhonchi. Minimal crackles appreciated. No wheezes. A left chest tube is noted. Abdomen soft bowel sounds are heard. No masses or tenderness. Extremities are intact. No cyanosis clubbing or edema. Skin is without rash or lesion. Neurologic examination is brief but nonfocal. - Labs CBC & Chem 7: 08/25/21 06:41 08/25/21 06:41 Labs: Abnormal Lab Results - Last 24 Hours (Table) 08/25/21 08/25/21 Range/Units 06:41 06:41 WBC 18.1 H (3.8-10.6) k/uL RBC 5.59 H (3.80-5.40) m/uL Hct 47.3 H (34.0-46.0) % MCH 22.9 L (25.0-35.0) pg MCHC 27.1 L (31.0-37.0) g/dL RDW 17.8 H (11.5-15.5) % Neutrophils # 15.4 H (1.3-7.7) k/uL Monocytes # 1.1 H (0-1.0) k/uL Sodium 133 L (137-145) mmol/L Potassium 5.5 H (3.5-5.1) mmol/L Carbon Dioxide 36 H (22-30) mmol/L Microbiology - Last 24 Hours (Table) 08/25/21 08:20 Tissue Culture - Preliminary Lung - Left Lower Lobe 08/24/21 08:20 Gram Stain - Preliminary Lung - Left Upper Lobe Tissue Culture - Preliminary 08/24/21 08:20 Anaerobic Culture - Preliminary Lung - Left Upper Lobe 08/24/21 08:20 Fungal Culture - Preliminary Lung - Left Upper Lobe 08/24/21 08:20 Acid Fast Bacilli Culture - Preliminary Lung - Left Upper Lobe 08/24/21 08:20 Acid Fast Bacilli Culture - Preliminary Lung - Left Lower Lobe 08/24/21 08:20 Anaerobic Culture - Preliminary Lung - Left Lower Lobe 08/24/21 08:20 Fungal Culture - Preliminary Lung - Left Lower Lobe Assessment and Plan Assessment: Postop day #1, status post thoracoscopic left lung biopsy, for interstitial disease/groundglass opacities. History of COPD, secondary to chronic tobacco use. History of CHF. Prior history of cardiac arrest. History of chronic tobacco use. History of alcoholism. History of essential hypertension. History of hyperlipidemia. Rule out autoimmune lung disease. Plan: Plan dated 08/24/2021. The patient is seen in the phase I recovery area. The patient's on a simple face mask. The patient apparently developed respiratory distress after extubation initially, was reintubated, receive some IV corticosteroids, and then was successfully re-extubated. Currently, the patient appears relatively stable. She had biopsies performed of the left upper lobe and left lower lobe. She has a left-sided chest tube. There is no air leak. Was given a breathing treatment. We will continue to follow make recommendations where appropriate. Await pathology reports. Plan dated 08/25/2021. The patient is seen in room 357. Yesterday, I saw her in phase I recovery. She was initially extubated and then reintubated, and then re-extubated again after receiving Solu-Medrol. Currently, she is on 4 L nasal cannula. There is no leak from the chest tube. Left chest tube is still in place. I believe cardiothoracic is hoping to have the chest tube removed later today. Clinically, the patient's doing well. I did mention to her that she'll need to follow with my partner. I also mentioned the fact that it would take good week or so may be a bit longer, to have the final biopsy report. Time with Patient: Less than 30
[2021-08-25 12:19] VITALS: TEMP 97.4
--- NOTE | 2021-08-25 12:40 | XR ---
EXAMINATION TYPE: XR chest 2V DATE OF EXAM: 08/25/2021 COMPARISON: 08/25/2021 HISTORY: Status post chest tube removal TECHNIQUE: Frontal and lateral views of the chest are obtained. FINDINGS: Left-sided chest tube has been removed. No evidence for sizable left-sided pneumothorax. Reticulonodular infiltrates persist mid and lower lung zones with small effusions. Cardiomediastinal silhouette is stable. IMPRESSION: 1. Left-sided chest tube has been removed. No evidence for sizable left-sided pneumothorax.
--- NOTE | 2021-08-25 14:31 | P.DS ---
Providers Date of admission: 08/24/21 05:38 Expected date of discharge: 08/25/21 Attending physician: Juan Mann Consults: 08/24/21 09:36 Consult Physician Routine Consulting Provider: Ziyad Oleary Reason/Comments: post lung biopsy; alejo'dalia patient Do you want consulting provider notified?: Yes Primary care physician: Gabe Youssef MD Hospital Course: FINAL DIAGNOSIS: 1. Bilateral groundglass pulmonary infiltrates 2. COPD 3. Current tobacco dependence 4. History of CHF 5. Prior history of cardiac arrest 6. History of EtOH abuse 7. History of hypertension 8. History of hyperlipidemia PRINCIPAL PROCEDURE: 1. Left thoracoscopic lung biopsy HISTORY OF PRESENT ILLNESS: This is a 50-year-old female patient who follows on an outpatient basis with Dr. Armstrong for pulmonology. She has had a chronic nonproductive cough for several years. Serial CT scans over the years have shown bilateral small pulmonary nodules as well as bilateral patchy groundglass infiltrates, some degree of bullous disease with evidence of COPD. The patient does see a sales contractor who has completed hematological workup for rheumatologic disease which has unfortunately remained nondiagnostic. The patient was referred to Dr. Mann from cardiothoracic surgery. She was recommended to undergo lung biopsy utilizing thoracoscopic approach. The usual perioperative course was discussed in detail with the patient, all risks and benefits were explained, all questions were answered, and consent was obtained to proceed with surgery. The patient was scheduled at the earliest possible date. In addition the patient was strongly encouraged to quit smoking completely. HOSPITAL COURSE: The patient was brought to the hospital on 08/24/21, taken to t preoperative area, prepared in the usual fashion, and subsequently taken to the operating room where Dr. Mann performed left thoracoscopic lung biopsy. Upon completion of surgery the patient was extubated and taken to the recovery firm, however she did have difficulty waking up from Michelle and was short of breath so she was reintubated for short time. Eventually she was extubated and admitted to 3 S. cardiac stepdown unit for further recovery and hemodynamic monitoring. On postop day 1 her x-ray was satisfactory, there was no air leak in her chest tube and her left pleural chest tube was discontinued without incident. Repeat chest x-ray demonstrated no pneumothorax. Her oxygen was titrated down, unfortunately her room air oxygen saturation was 84% and she required oxygen at discharge. She was tolerating oral diet, her pain was controlled, and she was ready to be discharged to home on postoperative day #1. She received written and verbal instruction regarding her medications, activity restrictions, signs and symptoms requiring physician notification, and follow-up appointments. Patient Condition at Discharge: Stable Plan - Discharge Summary Discharge Rx Participant: Yes New Discharge Prescriptions: New Acetaminophen Tab [Tylenol] 650 mg PO Q4HR PRN tab PRN Reason: Fever And/ Or Pain traMADol HCL 50 mg PO Q8HR PRN #9 tablet PRN Reason: Breakthrough Pain Continue Atorvastatin [Lipitor] 10 mg PO DAILY lisinopriL 30 mg PO DAILY Fluticasone/Salmeterol [Advair Hfa 230-21 Mcg Inhaler] 2 puff INHALATION RT- BID Loratadine [Claritin] 10 mg PO DAILY Tiotropium 18 Mcg/Puff [Spiriva] 2 puff INHALATION RT-DAILY Nicotine 14Mg/24Hr Patch [Habitrol] 1 patch TRANSDERM DAILY #30 patch QUEtiapine [SEROquel] 25 mg PO HS #15 tab predniSONE See Taper PO DIRECTED carvediloL [Coreg] 6.25 mg PO BID Prazosin [Minipress] 1 mg PO HS Albuterol Sulfate [Proair Hfa] 2 puff INHALATION RT-QID PRN PRN Reason: Shortness Of Breath Ipratropium-Albuterol Nebulize [Duoneb 0.5 mg-3 mg/3 ml Soln] 3 ml INHALATION RT-QID PRN PRN Reason: Shortness Of Breath Discharge Medication List Atorvastatin [Lipitor] 10 mg PO DAILY 01/22/20 [History] Fluticasone/Salmeterol [Advair Hfa 230-21 Mcg Inhaler] 2 puff INHALATION RT-BID 04/28/21 [History] carvediloL [Coreg] 6.25 mg PO BID 04/28/21 [History] lisinopriL 30 mg PO DAILY 04/28/21 [History] Albuterol Sulfate [Proair Hfa] 2 puff INHALATION RT-QID PRN 08/13/21 [History] Loratadine [Claritin] 10 mg PO DAILY 08/13/21 [History] Prazosin [Minipress] 1 mg PO HS 08/13/21 [History] Tiotropium 18 Mcg/Puff [Spiriva] 2 puff INHALATION RT-DAILY 08/13/21 [History] Nicotine 14Mg/24Hr Patch [Habitrol] 1 patch TRANSDERM DAILY #30 patch 08/15/21 [Rx] QUEtiapine [SEROquel] 25 mg PO HS #15 tab 08/15/21 [Rx] Ipratropium-Albuterol Nebulize [Duoneb 0.5 mg-3 mg/3 ml Soln] 3 ml INHALATION RT-QID PRN 08/22/21 [History] predniSONE See Taper PO DIRECTED 08/22/21 [History] Acetaminophen Tab [Tylenol] 650 mg PO Q4HR PRN tab 08/25/21 [Rx] traMADol HCL 50 mg PO Q8HR PRN #9 tablet 08/25/21 [Rx] Follow up Appointment(s)/Referral(s): Juan Mann MD [STAFF PHYSICIAN] - 09/06/21 2:30 pm Flavio Armstrong MD [STAFF PHYSICIAN] - 09/08/21 8:00 am Patient Instructions/Handouts: How to Use an Incentive Spirometer (DC), Hypoxia (ED), Needle Biopsy of the Lung (DC) Activity/Diet/Wound Care/Special Instructions: Home Oxygen - [facility] [phone] Patient requires home oxygen at discharge secondary to COPD DISCHARGE INSTRUCTIONS: 1. No driving for 2 weeks, or until physician gives their ok. 2. No lifting, pushing, or pulling more than 10 pounds for 2 weeks. The physician will advise of any restriction changes. 3. Continue pain control per as needed orders. Alternate acetaminophen (Tylenol) and ibuprofen (Motrin/Advil) for pain. 4. Continue with incentive spirometry and splinting until otherwise directed by the physician. 5. Leave chest tube dressing for 48 hours. After that, remove all dressings and shower daily. 6. Routine incision care. No powders, lotions, ointments on incisions. 7. Please call surgeon/PROGRESSIVE ASSEMBLER AND FITTER for temp greater than 101 F or purulent drainage from incisions. 8. Smoking cessation counseling and program information provided. Discharge Disposition: HOME SELF-CARE
[2021-08-25 15:59] VITALS: BP 92/58; PULSE 90; RESP 18
--- NOTE | 2021-08-31 15:18 | CDI ---
Documentation Clarification Form Date: 08.31.21 From: GUY Walters Admit Date: 08/24/2021 05:38:00 AM Patient Name: Elizabeth Snow Visit Number: [id number] Discharge Date: 08/25/2021 07:18:00 PM ATTENTION: The Clinical Documentation Specialists (CDI) and [facility] Coding Staff appreciate your assistance in clarifying documentation. Please respond to the clarification below the line at the bottom and electronically sign. The CDI & [facility] Coding staff will review the response and follow-up if needed. Please note: Queries are made part of the Legal Health Record. If you have any questions, please contact the author of this message via ITS. Dr. 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 Coding guidelines do not allow coding professionals to code based on pathology results; therefore, clarification is requested. History/risk factors: Patient was discovered to have diffuse bilateral roundglass infiltrates and was admitted for a thorascopic lung biopsy. 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
== END 2021-08-25 19:18 | disposition home or self-care (01) | DRG 167 ==
LOC: 2ORMAIN 08-24 05:38 → 3SCARD 08-24 08:50
PROVIDERS: ADMIT Thoracic Surgery (Cardiothoracic Vascular Surgery); ATTEND Thoracic Surgery (Cardiothoracic Vascular Surgery)
PROC: 0BBG8ZX Excision of Left Upper Lung Lobe, Via Natural or Artificial Opening Endoscopic, Diagnostic (ICD-10-PCS; 2021-08-24)
PROC: 0BBJ8ZX Excision of Left Lower Lung Lobe, Via Natural or Artificial Opening Endoscopic, Diagnostic (ICD-10-PCS; principal; 2021-08-24 07:30)
DX: J84.82 Adult pulmonary Langerhans cell histiocytosis (principal); J93.83 Other pneumothorax; J84.9 Interstitial pulmonary disease, unspecified; R59.0 Localized enlarged lymph nodes; E78.5 Hyperlipidemia, unspecified; I11.0 Hypertensive heart disease with heart failure; I50.9 Heart failure, unspecified; J44.9 Chronic obstructive pulmonary disease, unspecified; F17.200 Nicotine dependence, unspecified, uncomplicated; Z86.74 Personal history of sudden cardiac arrest; Z79.51 Long term (current) use of inhaled steroids; Z79.899 Other long term (current) drug therapy; Z71.6 Tobacco abuse counseling; Z79.52 Long term (current) use of systemic steroids; Z82.49 Family history of ischemic heart disease and other diseases of the circulatory system; Z82.5 Family history of asthma and other chronic lower respiratory diseases
CPT/HCPCS: 64999; 71045; 71046; 80048; 81025; 85025; 87070; 87075; 87102; 87116; 87205; 87206; 88307; 88312; 94002; 94640; 94760

== ENCOUNTER 2021-08-12 23:49 | Inpatient (IN) | payer OTHER ==
[2021-08-12] MEDS ORDERED: methylPREDNISolone SOD SUCCI 125 MG/2 ML VIAL IV STA (23:58)
[2021-08-12] MEDS ORDERED: SODIUM CHLORIDE 0.9% 1,000 ML IV STA (23:58)
[2021-08-12] MEDS ORDERED: ALBUTEROL NEBULIZED 2.5 MG/3 ML INHALATION STA (23:58)
[2021-08-12] MEDS ORDERED: IPRATROPIUM 0.5 MG/2.5 ML NEBU INHALATION STA (23:58)
--- NOTE | 2021-08-12 23:59 | ED ---
SOB HPI - General Chief Complaint: Shortness of Breath Stated Complaint: KRYSTAL Time Seen by Provider: 08/12/21 23:57 Source: patient, RN notes reviewed, old records reviewed Mode of arrival: ambulatory Limitations: no limitations - History of Present Illness Initial Comments: This is a 50-year-old female to the emergency department. Patient presents toda y for evaluation regards to severe shortness with cough congestion persistent shortness of breath here in the emergency room sudden onset of shortness of breath will she was at home. Patient initially presents hypoxic with oxygen around 84. Patient states she cannot breath. No nausea vomiting diarrhea no fevers. Significant increasing cough and congestion with prior hospital admissions for COPD MD Complaint: shortness of breath, cough, "asthma attack", anxiety -: hour(s) Severity: severe Severity scale (1-10): 10 Consistency: constant Improves With: nothing Worsens With: exertion, movement Known History Of: COPD, asthma Context: recent URI, recent illness Associated Symptoms: cough, sputum production Treatments Prior to Arrival: none - Related Data Home Medications Medication Instructions Recorded Confirmed Atorvastatin [Lipitor] 10 mg PO DAILY@0330 01/22/20 04/28/21 Fluticasone/Salmeterol [Advair Hfa 2 puff INHALATION RT-BID 04/28/21 04/28/21 230-21 Mcg Inhaler] Montelukast [Singulair] 10 mg PO DAILY@0330 04/28/21 04/28/21 carvediloL [Coreg] 6.25 mg PO BID@0330,1530 04/28/21 04/28/21 lisinopriL 30 mg PO DAILY@0330 04/28/21 04/28/21 Previous Rx's Medication Instructions Recorded Furosemide [Lasix] 40 mg PO DAILY #30 tab 04/29/21 Ipratropium-Albuterol Nebulize 3 ml INHALATION RT-QID #0 ml 04/29/21 [Duoneb 0.5 mg-3 mg/3 ml Soln] predniSONE See Taper PO DIRECTED #40 tab 04/29/21 Albuterol Nebulized [Ventolin 2.5 mg INHALATION Q4H PRN #25 each 05/01/21 Nebulized] Albuterol Sulfate [Proair Hfa] 1 - 2 puff INHALATION Q4H PRN #8.5 05/01/21 gm Allergies Allergy/AdvReac Type Severity Reaction Status Date / Time No Known Allergies Allergy Verified 08/12/21 23:55 Review of Systems ROS Statement: Those systems with pertinent positive or pertinent negative responses have been documented in the HPI. ROS Other: All systems not noted in ROS Statement are negative. Past Medical History Past Medical History: Chest Pain / Angina, COPD, Hypertension Additional Past Medical History / Comment(s): Pt states went to ER with chest pain/HTN and sent home then went to work and had a cardiac arrest in 2019/pt states she had echo and cardiac cath-all normal-no cause ever found for arrest, sinus issues. History of Any Multi-Drug Resistant Organisms: None Reported Past Surgical History: Back Surgery, Cholecystectomy, Heart Catheterization, Orthopedic Surgery, Tubal Ligation Additional Past Surgical History / Comment(s): 2019 normal cardiac cath, L$-L% discectomy Past Anesthesia/Blood Transfusion Reactions: No Reported Reaction Past Psychological History: No Psychological Hx Reported Smoking Status: Current every day smoker Past Alcohol Use History: None Reported Past Drug Use History: None Reported - Past Family History Father Family Medical History: Cancer Additional Family Medical History / Comment(s): Father at the age of 37 yrs from cancer from agent orange exposure in [place] per pt. Mother Family Medical History: Congestive Heart Failure (CHF), COPD, Myocardial Infarction ([place]) Additional Family Medical History / Comment(s): Mother had a [place] at the age of 60 yrs. She is 67yrs old. General Exam Limitations: no limitations General appearance: alert, in no apparent distress, anxious Head exam: Present: atraumatic, normocephalic, normal inspection Eye exam: Present: normal appearance, PERRL, EOMI. Absent: scleral icterus, conjunctival injection, periorbital swelling ENT exam: Present: normal exam, mucous membranes moist Neck exam: Present: normal inspection. Absent: tenderness, meningismus, lymphadenopathy Respiratory exam: Present: respiratory distress, wheezes, accessory muscle use, decreased breath sounds, prolonged expiratory. Absent: rales, rhonchi, stridor Cardiovascular Exam: Present: regular rate, normal rhythm, normal heart sounds. Absent: systolic murmur, diastolic murmur, rubs, gallop, clicks GI/Abdominal exam: Present: soft, normal bowel sounds. Absent: distended, tenderness, guarding, rebound, rigid Extremities exam: Present: normal inspection, full ROM, normal capillary refill. Absent: tenderness, pedal edema, joint swelling, calf tenderness Back exam: Present: normal inspection Neurological exam: Present: alert, oriented X3, CN II-XII intact Psychiatric exam: Present: normal affect, normal mood Skin exam: Present: warm, dry, intact, normal color. Absent: rash Course Vital Signs 08/12/21 08/13/21 08/13/21 23:52 00:23 00:28 Temperature 98.7 F Pulse Rate 87 84 Respiratory 30 H Rate Blood Pressure 120/85 O2 Sat by Pulse 94 L 93 L Oximetry 08/13/21 08/13/21 00:36 00:48 Temperature Pulse Rate 85 84 Respiratory 20 Rate Blood Pressure O2 Sat by Pulse 92 L Oximetry - Reevaluation(s) Reevaluation #1: 08/13/21 05:20 Medical record is reviewed Reevaluation #2: 08/13/21 05:20 Patient symptoms are not improved here in the ER oxygen continues to drop despite supplemental O2 Reevaluation #3: 08/13/21 05:21 Patient informed results and questions answered - Consultations Consultation #1: Spoke with Dr Youssef who agrees to admit this patient Medical Decision Making - Medical Decision Making 50 female with significant COPD exacerbation and significant hypoxia. Per was s upple little 2 and prolonged breathing treatments. Patient placed on steroids will admit for continuous breathing treatments and further evaluation management - Lab Data Result diagrams: 08/13/21 00:25 08/13/21 00:25 Lab Results 08/13/21 08/13/21 08/13/21 Range/Units 00:25 00:25 00:25 WBC 10.5 (3.8-10.6) k/uL RBC 5.25 (3.80-5.40) m/uL Hgb 12.5 (11.4-16.0) gm/dL Hct 42.3 (34.0-46.0) % MCV 80.5 (80.0-100.0) fL MCH 23.7 L (25.0-35.0) pg MCHC 29.5 L (31.0-37.0) g/dL RDW 17.4 H (11.5-15.5) % Plt Count 278 (150-450) k/uL MPV 8.1 Neutrophils % 67 % Lymphocytes % 20 % Monocytes % 8 % Eosinophils % 1 % Basophils % 1 % Neutrophils # 7.0 (1.3-7.7) k/uL Lymphocytes # 2.0 (1.0-4.8) k/uL Monocytes # 0.9 (0-1.0) k/uL Eosinophils # 0.2 (0-0.7) k/uL Basophils # 0.1 (0-0.2) k/uL Hypochromasia Marked Anisocytosis Slight Microcytosis Slight PT 10.9 (9.0-12.0) sec INR 1.0 (<1.2) APTT 25.7 (22.0-30.0) sec Sodium 128 L (137-145) mmol/L Potassium 4.9 (3.5-5.1) mmol/L Chloride 97 L (98-107) mmol/L Carbon Dioxide 27 (22-30) mmol/L Anion Gap 4 mmol/L BUN 18 H (7-17) mg/dL Creatinine 0.52 (0.52-1.04) mg/dL Est GFR (CKD-EPI)AfAm >90 (>60 ml/min/1.73 sqM) Est GFR (CKD-EPI)NonAf >90 (>60 ml/min/1.73 sqM) Glucose 92 (74-99) mg/dL Plasma Lactic Acid Renato (0.7-2.0) mmol/L Calcium 8.3 L (8.4-10.2) mg/dL Magnesium 2.0 (1.6-2.3) mg/dL Total Bilirubin 0.7 (0.2-1.3) mg/dL AST 41 H (14-36) U/L ALT 40 H (4-34) U/L Alkaline Phosphatase 90 (38-126) U/L Troponin I (0.000-0.034) ng/mL NT-Pro-B Natriuret Pep pg/mL Total Protein 6.2 L (6.3-8.2) g/dL Albumin 3.6 (3.5-5.0) g/dL 08/13/21 08/13/21 08/13/21 Range/Units 00:25 00:25 00:25 WBC (3.8-10.6) k/uL RBC (3.80-5.40) m/uL Hgb (11.4-16.0) gm/dL Hct (34.0-46.0) % MCV (80.0-100.0) fL MCH (25.0-35.0) pg MCHC (31.0-37.0) g/dL RDW (11.5-15.5) % Plt Count (150-450) k/uL MPV Neutrophils % % Lymphocytes % % Monocytes % % Eosinophils % % Basophils % % Neutrophils # (1.3-7.7) k/uL Lymphocytes # (1.0-4.8) k/uL Monocytes # (0-1.0) k/uL Eosinophils # (0-0.7) k/uL Basophils # (0-0.2) k/uL Hypochromasia Anisocytosis Microcytosis PT (9.0-12.0) sec INR (<1.2) APTT (22.0-30.0) sec Sodium (137-145) mmol/L Potassium (3.5-5.1) mmol/L Chloride (98-107) mmol/L Carbon Dioxide (22-30) mmol/L Anion Gap mmol/L BUN (7-17) mg/dL Creatinine (0.52-1.04) mg/dL Est GFR (CKD-EPI)AfAm (>60 ml/min/1.73 sqM) Est GFR (CKD-EPI)NonAf (>60 ml/min/1.73 sqM) Glucose (74-99) mg/dL Plasma Lactic Acid Renato 0.9 (0.7-2.0) mmol/L Calcium (8.4-10.2) mg/dL Magnesium (1.6-2.3) mg/dL Total Bilirubin (0.2-1.3) mg/dL AST (14-36) U/L ALT (4-34) U/L Alkaline Phosphatase (38-126) U/L Troponin I <0.012 (0.000-0.034) ng/mL NT-Pro-B Natriuret Pep 1920 pg/mL Total Protein (6.3-8.2) g/dL Albumin (3.5-5.0) g/dL - EKG Data -: EKG Interpreted by Me (EKG shows sinus tachycardia 121 SC 169 QRS 76 QTS 414 ) - Radiology Data Radiology results: report reviewed (Chest x-rays negative for acute disease), image reviewed Critical Care Time Critical Care Time: Yes Total Critical Care Time: 31 Disposition Clinical Impression: Hypoxia, Acute exacerbation of chronic obstructive pulmonary disease, Asthma with acute exacerbation Disposition: ADMITTED IP TO THIS HOSP Condition: Fair Is patient prescribed a controlled substance at d/c from ED?: No Referrals: Gabe Youssef MD [Primary Care Provider] - 1-2 days
--- NOTE | 2021-08-13 00:32 | XR ---
EXAMINATION TYPE: XR chest 1V portable DATE OF EXAM: 08/13/2021 COMPARISON: 04/29/2021 HISTORY: Short of breath TECHNIQUE: Single view FINDINGS: There is some coarse interstitial density in the mid and lower lung robins. Heart size is n ormal. There are no hilar masses. Costophrenic angles are clear. IMPRESSION: Interstitial pulmonary mild edema appears new compared to old exam. Normal heart.
[2021-08-13 00:34] LABS: Anisocytosis Slight; Basophils # (A) 0.1 k/uL (0-0.2); Basophils % (A) 1 %; Eosinophils # (A) 0.2 k/uL (0-0.7); Eosinophils % (A) 1 %; HCT 42.3 % (34.0-46.0); HGB 12.5 gm/dL (11.4-16.0); Hypochromasia Marked; Lymphocytes % (A) 20 %; MCH 23.7 pg (25.0-35.0); MCHC 29.5 g/dL (31.0-37.0); MCV 80.5 fL (80.0-100.0); Mean Platelet Volume 8.1; Microcytosis Slight; Monocytes # (A) 0.9 k/uL (0-1.0); Monocytes % (A) 8 %; Neutrophils % (A) 67 %; Platelet Count 278 k/uL (150-450); RBC 5.25 m/uL (3.80-5.40); RDW 17.4 % (11.5-15.5); WBC 10.5 k/uL (3.8-10.6)
[2021-08-13 00:43] LABS: Partial Thromboplastin Time 25.7 sec (22.0-30.0); Prothrombin Time 10.9 sec (9.0-12.0)
[2021-08-13 01:04] LABS: ALT 40 U/L (4-34); AST 41 U/L (14-36); African American GFR (CKD) >90 (>60 ml/min/1.73 sqM); Albumin 3.6 g/dL (3.5-5.0); Alkaline Phosphatase 90 U/L (38-126); Anion Gap 4 mmol/L; Blood Urea Nitrogen 18 mg/dL (7-17); Calcium 8.3 mg/dL (8.4-10.2); Carbon Dioxide 27 mmol/L (22-30); Chloride 97 mmol/L (98-107); Glucose 92 mg/dL (74-99); Non-African American GFR(CKD) >90 (>60 ml/min/1.73 sqM); Potassium 4.9 mmol/L (3.5-5.1); Sodium 128 mmol/L (137-145); Total Bilirubin 0.7 mg/dL (0.2-1.3); Total Protein 6.2 g/dL (6.3-8.2)
[2021-08-13] MEDS ORDERED: MORPHINE SULFATE 4 MG/ML SYRINGE IVP STA (01:36)
[2021-08-13] MEDS ORDERED: IPRATROPIUM-ALBUTEROL 3 ML NEB INHALATION STA (05:17)
[2021-08-13] MEDS: methylPREDNISolone SOD SUCCI 125 MG/2 ML VIAL IV SCH ×4 (06:44→23:19)
[2021-08-13] MEDS: SODIUM CHLORIDE 0.9% 1,000 ML IV SCH ×2 (06:45→15:11)
[2021-08-13] MEDS ORDERED: ALBUTEROL NEBULIZED 2.5 MG/3 ML INHALATION SCH (08:00)
[2021-08-13] MEDS: AZITHROMYCIN 500 MG TAB PO SCH (08:08)
[2021-08-13] MEDS: HYDROcodone/APAP 5-325MG 1 EACH TAB PO PRN ×3 (10:57→23:20)
--- NOTE | 2021-08-13 14:11 | P.HPIM ---
History of Present Illness H&P Date: 08/13/21 Chief Complaint: Shortness of breath Patient is a 50-year-old female with a known history of hypertension, COPD diagnosed recently and is planning for lung biopsy scheduled next Saturday and history of cardiac arrest in 2019 and currently everyday smoker presents to ER with complaints of worsening shortness of breath for the past 2 days. Patient has been having cough with thick sputum production and shortness of breath. Patient was hypoxic with pulse ox 84% on room air on admission. Denied any complaints of fever or chills. No nausea vomiting or abdominal pain or glory rrhea. No complaints of chest pain. No headache or dizziness or lightheadedness. Headedness. Chest x-ray showed interstitial pulmonary mild edema appears new compared to old exam. EKG showed sinus tachycardia with frequent PVCs. Laboratory data showed WBC 10.5 hemoglobin 12.1 platelets 278 INR 1.0 sodium 128 potassium 4.9 chloride 97 BUN 18 and creatinine 0.42 AST 41 ALT 40 alk phos 90 troponin x1 - proBNP 1920 Patient was previously admitted to the hospital due to acute on chronic CHF diastolic dysfunction. Review of Systems Constitutional: Patient denies any fever or chills . No generalized weakness or weight loss. Abdomen: Patient denied nausea vomiting and diarrhea and abdominal pain. Cardiovascular: Patient denies any chest pain or short of breath no palpitations. Respiratory: Patient does have cough with sputum production and shortness of breath Neurologic: Patient denied any numbness or tingling headache. Musculoskeletal: Patient denies any complaints of joint swelling or deformity. Skin: Negative Psychiatric: Negative Endocrine: No heat or cold intolerance. No recent weight gain. Genitourinary: No dysuria or hematuria. All other 14 point ROS negative except the above Past Medical History Past Medical History: Chest Pain / Angina, COPD, Hypertension Additional Past Medical History / Comment(s): Pt states went to ER with chest pain/HTN and sent home then went to work and had a cardiac arrest in 2019/pt states she had echo and cardiac cath-all normal-no cause ever found for arrest, sinus issues. History of Any Multi-Drug Resistant Organisms: None Reported Past Surgical History: Back Surgery, Cholecystectomy, Heart Catheterization, Orthopedic Surgery, Tubal Ligation Additional Past Surgical History / Comment(s): 2019 normal cardiac cath, L4-L5 discectomy Past Anesthesia/Blood Transfusion Reactions: No Reported Reaction Smoking Status: Current every day smoker - Past Family History Father Family Medical History: Cancer Additional Family Medical History / Comment(s): Father at the age of 37 yrs from cancer from agent orange exposure in [place] per pt. Mother Family Medical History: Congestive Heart Failure (CHF), COPD, Myocardial Infarction ([place]) Additional Family Medical History / Comment(s): Mother had a [place] at the age of 60 yrs. She is 67yrs old. Medications and Allergies Home Medications Medication Instructions Recorded Confirmed Type Atorvastatin [Lipitor] 10 mg PO DAILY 01/22/20 08/13/21 History Fluticasone/Salmeterol [Advair Hfa 2 puff INHALATION RT-BID 04/28/21 08/13/21 History 230-21 Mcg Inhaler] carvediloL [Coreg] 6.25 mg PO BID 04/28/21 08/13/21 History lisinopriL 30 mg PO DAILY 04/28/21 08/13/21 History Albuterol Sulfate [Proair Hfa] 2 puff INHALATION RT-QID PRN 08/13/21 08/13/21 History Loratadine [Claritin] 10 mg PO DAILY 08/13/21 08/13/21 History Prazosin [Minipress] 1 mg PO HS 08/13/21 08/13/21 History Tiotropium 18 Mcg/Puff [Spiriva] 2 puff INHALATION RT-DAILY 08/13/21 08/13/21 History Allergies Allergy/AdvReac Type Severity Reaction Status Date / Time No Known Allergies Allergy Verified 08/13/21 12:35 Physical Exam Vitals: Vital Signs Temp Pulse Resp BP BP Pulse Ox 08/13/21 08:09 98.1 F 96 12 135/75 90 L 08/13/21 08:00 98.8 F 18 149/91 91 L 08/13/21 07:55 88 08/13/21 06:50 92 18 127/82 08/13/21 00:48 84 20 92 L 08/13/21 00:36 85 08/13/21 00:28 93 L 08/13/21 00:23 84 08/12/21 23:52 98.7 F 87 30 H 120/85 94 L Intake and Output 08/12/21 08/13/21 08/13/21 22:59 06:59 14:59 Other: Weight 76.204 kg 76.204 kg PHYSICAL EXAMINATION: Patient is lying in the bed comfortably, no acute distress, awake alert and oriented.. HEENT: Normocephalic. Neck is supple. Pupils reactive. Nostrils clear. Oral cavity is moist. Neck reveals no JVD, carotid bruits, or thyromegaly. CHEST EXAMINATION: Trachea is central. Symmetrical expansion. Bibasilar diminished sounds and right-sided wheezing. CARDIAC: Normal S1, S2 with no gallops. No murmurs ABDOMEN: Soft. Bowel sounds normal. No organomegaly. No abdominal bruits. Extremities: reveal no edema. No clubbing or cyanosis Neurologically awake, alert, oriented x3 with well-coordinated movements. No focal deficits noted Skin: No rash or skin lesions. Psychiatric: Coperative. Nonsuicidal, anxious. Musculoskeletal: No joint swelling or deformity. Normal range of motion. Results CBC & Chem 7: 08/13/21 00:25 08/13/21 00:25 Labs: Abnormal Lab Results - Last 24 Hours (Table) 08/13/21 08/13/21 Range/Units 00:25 00:25 MCH 23.7 L (25.0-35.0) pg MCHC 29.5 L (31.0-37.0) g/dL RDW 17.4 H (11.5-15.5) % Sodium 128 L (137-145) mmol/L Chloride 97 L (98-107) mmol/L BUN 18 H (7-17) mg/dL Calcium 8.3 L (8.4-10.2) mg/dL AST 41 H (14-36) U/L ALT 40 H (4-34) U/L Total Protein 6.2 L (6.3-8.2) g/dL Thrombosis Risk Factor Assmnt - DVT/VTE Prophylaxis DVT/VTE Prophylaxis: Pharmacologic Prophylaxis ordered - Choose All That Apply Any of the Below Risk Factors Present?: Yes Each Factor Represents 1 point: Age 41-60 years Other Risk Factors: No Other congenital or acquired thrombophilia - If yes, enter type in comment: No Thrombosis Risk Factor Assessment Total Risk Factor Score: 1 Thrombosis Risk Factor Assessment Level: Low Risk Assessment and Plan Assessment: Acute COPD exacerbation Acute hypoxic respiratory failure secondary to COPD exacerbation patient was hypoxic. Pulse ox 94% on room air on admission. Chronic CHF with diastolic dysfunction Hypovolemic hyponatremia Nonischemic cardiomyopathy with recovered ejection fraction History of ventricular fibrillation and cardiac arrest in 2019 Nicotine dependence Check cocaine use Daily alcohol use Hypertension Hyperlipidemia DVT prophylaxis with heparin subcu Plan: Patient will be continued on IV Solu-Medrol, duo nebs and antibiotics along with azithromycin. Gentle IV hydration due to history of CHF and follow-up closely. Patient is supposed to follow-up with CT surgery for lung biopsy to rule out interstitial lung disease. Pulmonary was consulted for evaluation. Smoking cessation has been counseled extensively. Time with Patient: Greater than 30
[2021-08-13] MEDS: NICOTINE 14MG/24HR PATCH TRANSDERM SCH (15:11)
[2021-08-13] MEDS: IPRATROPIUM-ALBUTEROL 3 ML NEB INHALATION SCH ×3 (15:38→20:06)
[2021-08-13] MEDS: HEPARIN SODIUM,PORCINE/PF 5,000 UNIT/0.5 ML SYRINGE SQ SCH ×2 (16:53→23:19)
[2021-08-13] MEDS: PRAZOSIN 1 MG CAP PO SCH (20:01)
[2021-08-13] MEDS: carvediloL 6.25 MG TAB PO SCH (20:01)
[2021-08-14] MEDS: methylPREDNISolone SOD SUCCI 125 MG/2 ML VIAL IV SCH ×4 (05:29→21:52)
[2021-08-14] MEDS: HYDROcodone/APAP 5-325MG 1 EACH TAB PO PRN ×3 (05:37→17:52)
[2021-08-14] MEDS: IPRATROPIUM-ALBUTEROL 3 ML NEB INHALATION SCH ×4 (07:57→20:04)
[2021-08-14] MEDS: ATORVASTATIN 10 MG TAB PO SCH (09:43)
[2021-08-14] MEDS: NICOTINE 14MG/24HR PATCH TRANSDERM SCH (09:43)
[2021-08-14] MEDS: HEPARIN SODIUM,PORCINE/PF 5,000 UNIT/0.5 ML SYRINGE SQ SCH ×2 (09:43→16:00)
[2021-08-14] MEDS: carvediloL 6.25 MG TAB PO SCH ×2 (09:43→21:52)
[2021-08-14] MEDS: SODIUM CHLORIDE 0.9% 1,000 ML IV SCH (09:44)
[2021-08-14] MEDS: AZITHROMYCIN 500 MG TAB PO SCH (09:44)
[2021-08-14 10:21] LABS: African American GFR (CKD) 131.7 (60.0-200.0); Blood Urea Nitrogen 9.7 mg/dL (9.0-27.0); Calcium 9.1 mg/dL (8.7-10.3); Carbon Dioxide 30.3 mmol/L (20.0-27.5); Chloride 100 mmol/L (96-109); Glucose 196 mg/dL (70-110); Non-African American GFR(CKD) 113.6 (60.0-200.0); Potassium 5.2 mmol/L (3.5-5.5); Sodium 140 mmol/L (135-145)
[2021-08-14 11:15] LABS: Basophils # (A) 0.01 X 10*3/uL (0.00-0.10); Basophils % (A) 0.1 %; Eosinophils # (A) 0 X 10*3/uL (0.04-0.35); Eosinophils % (A) 0 %; HCT 45.8 % (37.2-46.3); Immature Grans, Automated 0.8 %; Lymphocytes # (A) 0.35 X 10*3/uL (0.90-5.00); Lymphocytes % (A) 2.6 %; MCH 21.9 pg (27.0-32.0); MCHC 26.2 g/dL (32.0-37.0); MCV 83.7 fL (80.0-97.0); Monocytes # (A) 0.68 X 10*3/uL (0.20-1.00); Monocytes % (A) 5.1 %; NRBC Per 100 WBC 0 /100 WBCS (0.0-0.0); Neutrophils # (A) 12.09 X 10*3/uL (1.80-7.70); Neutrophils % (A) 91.4 %; Platelet Count 313 X 10*3/uL (140-440); RBC 5.47 X 10*6/uL (4.10-5.20); RDW 18.7 % (11.5-14.5); WBC 13.23 X 10*3/uL (4.50-10.00)
[2021-08-14] MEDS: lisinopriL 10 MG TAB PO SCH (12:22)
--- NOTE | 2021-08-14 14:05 | P.CNPUL ---
History of Present Illness Consult date: 08/14/21 Reason for consult: dyspnea History of present illness: 50-year-old here patient is well-known to me. The patient is known to have COPD and the patient was also suspected to have an underlying interstitial lung disease probably related to an underlying connective tissue diseases disorder. For that reason, referred this patient for a rheumatologic evaluation the patient was also supposed to have a wedge biopsy of the lung of next week by cardiothoracic surgery. However, over the past 3 days, the patient became progressively more short of breath and she end up coming into the hospital. She is a chronic smoker and she smokes somewhere between half to 1 pack of cigarettes a day. She has had multiple has position the past for COPD exacerbation and shortness of breath. Noted the patient has other comorbidities. The patient has extensive cardiac problems including previous history of V. fib arrest in 2019, nonischemic cardiomyopathy with an ejection fraction of 30%. She is not known to have coronary artery disease. She is a chronic smoker in she also has history of COPD. The patient continues to smoke about half to 1 pack of cigarettes a day. On earlier evaluations, I have noted that the patient has bilateral ground this pulmonary infiltrates and based on my follow-up on her series of CAT scans of the chest from 01/03/2021 and 04/27/2020, there was some limited improvement in the bilateral groundglass pulmonary infiltrates. There were also scattered few bilateral pulmonary nodules that were essentially inflammatory in nature. Based on that, I did a connective tissue disease workup on this patient and the patient was checked positive for STARR and this was of a low titer 1-80 and the patient also had po sitive anti-MANAGER EMPLOYMENT antibodies. Rheumatoid factor was negative. Her angiotensin- converting enzyme level was also low.. The patient's most recent hospitalization was on 04/28/2021. In terms of cardiac evaluation, the patient is under the care of Dr. John Lemon. Her most recent echocardiogram showed improvement ejection fraction which was up to 45-50% without any significant valvular abnormalities. During this current admission, the patient came into the ED with increased dyspnea cough chest that is so wheezing. She is already feeling better with the use of bronchodilators and steroids. She has been vaccinated for COVID 192 and she has not received a booster. A screening test by PCR will be sent. The white cell count of 15.2 with a hemoglobin of 12 and a platelet count of 313. Renal function is stable at creatinine of 0.5 and a BUN of 9.7. 440. ALT and AST are 41 and 40 respectively 2. ProBNP level is 1920.. Face is at 0.4. Lactic acid level is at 0.9. Troponin was negative. Correlation profile was within normal limits. The chest x-ray shows some interstitial pulmonary infiltrates bilaterally. No airspace disease or consolidation is noted. Review of Systems CONSTITUTIONAL: Denies fever or chills. No night sweats. No weight loss. C urrent BMI 32.8. HEENT, the patient has no sore throat or hoarseness. CARDIOVASCULAR:+chest pain,+ shortness of breath,+ orthopnea,+ PND Denies palpitations. RESPIRATORY: +cough, shortness of breath GASTROINTESTINAL: Denies abdominal pain, diarrhea, constipation, nausea or vomiting. MUSCULOSKELETAL: Denies myalgias. NEUROLOGIC: Denies numbness, tingling, headache or weakness. ENDOCRINE: Denies fatigue, weight change, polydipsia or polyurina. GENITOURINARY: Denies burning, hematuria or urgency with micturation. HEMATOLOGIC: Denies history of anemia or bleeding. Past Medical History Past Medical History: Chest Pain / Angina, COPD, Hypertension Additional Past Medical History / Comment(s): Pt states went to ER with chest pain/HTN and sent home then went to work and had a cardiac arrest in 2019/pt states she had echo and cardiac cath-all normal-no cause ever found for arrest, sinus issues. History of Any Multi-Drug Resistant Organisms: None Reported Past Surgical History: Back Surgery, Cholecystectomy, Heart Catheterization, Orthopedic Surgery, Tubal Ligation Additional Past Surgical History / Comment(s): 2019 normal cardiac cath, L4-L5 discectomy Past Anesthesia/Blood Transfusion Reactions: No Reported Reaction Smoking Status: Current every day smoker - Past Family History Father Family Medical History: Cancer Additional Family Medical History / Comment(s): Father at the age of 37 yrs from cancer from agent orange exposure in [place] per pt. Mother Family Medical History: Congestive Heart Failure (CHF), COPD, Myocardial Infarction (AK) Additional Family Medical History / Comment(s): Mother had a AK at the age of 60 yrs. She is 67yrs old. Medications and Allergies Home Medications Medication Instructions Recorded Confirmed Type Atorvastatin [Lipitor] 10 mg PO DAILY 01/22/20 08/13/21 History Fluticasone/Salmeterol [Advair Hfa 2 puff INHALATION RT-BID 04/28/21 08/13/21 History 230-21 Mcg Inhaler] carvediloL [Coreg] 6.25 mg PO BID 04/28/21 08/13/21 History lisinopriL 30 mg PO DAILY 04/28/21 08/13/21 History Albuterol Sulfate [Proair Hfa] 2 puff INHALATION RT-QID PRN 08/13/21 08/13/21 History Loratadine [Claritin] 10 mg PO DAILY 08/13/21 08/13/21 History Prazosin [Minipress] 1 mg PO HS 08/13/21 08/13/21 History Tiotropium 18 Mcg/Puff [Spiriva] 2 puff INHALATION RT-DAILY 08/13/21 08/13/21 History Allergies Allergy/AdvReac Type Severity Reaction Status Date / Time No Known Allergies Allergy Verified 08/13/21 12:35 Physical Exam Vitals: Vital Signs Temp Pulse Pulse Resp BP Pulse Ox 08/14/21 11:37 84 08/14/21 11:26 88 08/14/21 08:41 97.6 F 90 16 133/83 92 L 08/14/21 07:59 96 08/14/21 02:00 97.6 F 101 H 19 137/91 91 L 08/13/21 20:17 93 08/13/21 20:07 90 08/13/21 19:27 98.4 F 18 151/94 92 L 08/13/21 15:53 85 18 08/13/21 15:38 84 18 08/13/21 14:00 98.7 F 17 143/87 91 L Intake and Output 08/13/21 08/14/21 08/14/21 22:59 06:59 14:59 Intake Total 2049 59 Output Total 0 Balance 0 2049 Intake: Intake, IV Titration 550 Amount Sodium Chloride 0.9% 1, 550 000 ml @ 50 mls/hr IV . Q20H [facility] Rx#:[id number] Oral 1500 596 Output: Stool 0 Other: # Voids 3 2 2 The patient appeared well nourished and normally developed. Vital signs as documented. Head exam is unremarkable. No scleral icterus or corneal arcus noted. Neck is without jugular venous distension, thyromegaly, or carotid bruits. Carotid upstrokes are brisk bilaterally. Lungs sounds are diminished and the patient had diffuse expiratory wheezes throughout the lung his bilaterally. Air entry is markedly diminished in the lung bases. Cardiac exam reveals the PMI to be normally sized and situated. Rhythm is regular. First and second heart sounds normal. No murmurs, rubs or gallops. Abdominal exam reveals normal bowel sounds, no masses, no organomegaly and no aortic enlargement. Extremities are nonedematous and both femoral and pedal pulses are normal.Examination of the skin revealed no evidence of significant rashes, suspicious appearing nevi or other concerning lesions.Neurologically, the patient is awake and alert and the patient does not have any focal neurological deficit. Cranial nerves are essentially intact. Results - Laboratory Findings CBC and BMP: 08/14/21 05:06 08/14/21 05:06 PT/INR, D-dimer PT 10.9 sec (9.0-12.0) 08/13/21 00:25 INR 1.0 (<1.2) 08/13/21 00:25 Abnormal lab findings: Abnormal Labs 08/13/21 08/13/21 08/14/21 00:25 00:25 05:06 WBC 13.23 H RBC 5.47 H MCH 23.7 L 21.9 L MCHC 29.5 L 26.2 L RDW 17.4 H 18.7 H Immature Gran # 0.10 H Neutrophils # 12.09 H Lymphocytes # 0.35 L Eosinophils # 0 L Sodium 128 L Chloride 97 L Carbon Dioxide Anion Gap BUN 18 H Creatinine Glucose Calcium 8.3 L AST 41 H ALT 40 H Total Protein 6.2 L 08/14/21 05:06 WBC RBC MCH MCHC RDW Immature Gran # Neutrophils # Lymphocytes # Eosinophils # Sodium Chloride Carbon Dioxide 30.3 H Anion Gap 9.70 L BUN Creatinine 0.5 L Glucose 196 H Calcium AST ALT Total Protein - Diagnostic Findings Chest x-ray: image reviewed Assessment and Plan Plan: 1 acute COPD exacerbation with secondary shortness of breath. At the same time that has been always a concern of an underlying interstitial lung disease. The presentation is typical for a COPD exacerbation for now. 2 chronic and nonspecific bilateral groundglass pulmonate changes. ILD was suspected. The patient has a positive STARR and anti-MANAGER EMPLOYMENT antibodies. I have referred this patient to a bulk driver for an underlying connective tissue disease workup. No lung biopsies of been done yet and these findings are essentially chronic. Underlying lupus versus mixed connective tissue disease disorder. The patient is currently seeing Dr. Mckeon from rheumatology. The patient is also seen Dr. Toy Mann and the patient was supposed to undergo an open wedge resection of the lung for histologic confirmation/diagnoses of an underlying interstitial lung disease. This was tentatively scheduled to be done on 08/24/2021. 2 CHF with ejection fraction of around 45% 3 dyspnea and cough secondary to above 4 previous history of cardiac arrest 5 COPD 6 smoking 7 history of alcoholism 8 hypertension 9 hyperlipidemia 10 positive STARR, weak with a titer of 1-80 11 positive anti-MANAGER EMPLOYMENT Plan Obtain HRCT of the chest to reevaluate the presence of vitamin D and the need for a wedge biopsy of the lung Continue bronchodilators Continue steroids Continue antibiotics Smoking cessation counseling Patient has been maintained on Advair and Spiriva on outpatient basis Rheumatology follow-up on outpatient basis We'll continue to follow
--- NOTE | 2021-08-14 16:19 | P.PN ---
Subjective This is a 50-year-old female admitted with acute COPD exacerbation, suspected underlying interstitial lung disease, scheduled for open wedge resection - diagnosis confirmation of underlying interstitial lung disease, 08/24/2021, maintained on nebulized bronchodilators, steroids and antibiotics. Complains of anxiety, difficulty sleeping. Maintaining O2 sats in the low 90s on 3 L nasal cannula. Afebrile, WBC 13.23. Renal function stable. Chest CT pending. Objective - Vital Signs Vital signs: Vital Signs Temp 98 F 08/14/21 14:00 Pulse 82 08/14/21 15:44 Resp 16 08/14/21 14:00 BP 133/85 08/14/21 14:00 Pulse Ox 91 L 08/14/21 14:00 Intake & Output 08/13/21 08/14/21 08/14/21 18:59 06:59 18:59 Intake Total 2049 1192 Output Total 0 Balance 0 2049 119 Weight 76.204 kg Intake: Intake, IV Titration 550 Amount Sodium Chloride 0.9% 1, 550 000 ml @ 50 mls/hr IV . Q20H [facility] Rx#:[id number] Oral 1500 1192 Output: Stool 0 Other: # Voids 3 2 2 - Exam PHYSICAL EXAMINATION: General: Alert and oriented 3, Sitting up in bed. NAD. HEENT: Normocephalic. JOHAN. Oral mucosa moist NECK: Supple, no JVD CHEST EXAMINATION:Bibasilar diminished sounds and expiratory wheezing. CARDIAC: Normal S1, S2 with no gallops. No murmurs. ABDOMEN: Soft. Nondistended, nontender .Bowel sounds normal. No organomegaly. No guarding. Extremities: no edema. No clubbing or cyanosis Neurologic: Cranial nerves II through XII grossly intact, No focal deficits. Skin: No rash, warm and dry Psychiatric: Anxious - Labs CBC & Chem 7: 08/14/21 05:06 08/14/21 05:06 Labs: Abnormal Lab Results - Last 24 Hours (Table) 08/14/21 08/14/21 Range/Units 05:06 05:06 WBC 13.23 H (4.50-10.00) X 10*3/uL RBC 5.47 H (4.10-5.20) X 10*6/uL MCH 21.9 L (27.0-32.0) pg MCHC 26.2 L (32.0-37.0) g/dL RDW 18.7 H (11.5-14.5) % Immature Gran # 0.10 H (0.00-0.04) X 10*3/uL Neutrophils # 12.09 H (1.80-7.70) X 10*3/uL Lymphocytes # 0.35 L (0.90-5.00) X 10*3/uL Eosinophils # 0 L (0.04-0.35) X 10*3/uL Carbon Dioxide 30.3 H (20.0-27.5) mmol/L Anion Gap 9.70 L (10.00-18.00) mmol/L Creatinine 0.5 L (0.6-1.5) mg/dL Glucose 196 H (70-110) mg/dL Assessment and Plan Assessment: Acute COPD exacerbation, suspected ILD Acute hypoxic respiratory failure secondary to the above Chronic CHF with diastolic dysfunction Pulmonary hypertension Hypovolemic hyponatremia Nonischemic cardiomyopathy with recovered ejection fraction History of ventricular fibrillation and cardiac arrest in 2019 Ongoing Nicotine dependence Crack cocaine use Daily alcohol use Hypertension Hyperlipidemia Plan: Continue on current medication regime ,monitoring and symptomatic treatment. Patient complains of anxiety, inability to sleep, Seroquel will be added to hs med.regimine. Aggressive pulmonary toileting with nebulized bronchodilators, steroids and antibiotics. Pulmonary consult in place, recommendations pending. Alcohol abstinence/ Smoking sensation reinforced. The impression and plan of care has been dictated as directed. : I performed a history and examination of this patient, discussed the same with the dictator. I agree with the dictator's note ,documented as a scribe. Any additional findings or plans will be noted.
[2021-08-14] MEDS: INSULIN ASPART (NovoLOG) 100 UNIT/ML VIAL SQ SCH ×2 (17:46→21:53)
[2021-08-14] MEDS: BUDESONIDE 0.5 MG/2 ML NEBU INHALATION SCH (20:03)
[2021-08-14] MEDS: FORMOTEROL FUMARATE 20 MCG/2 ML NEBU INHALATION SCH (20:03)
[2021-08-14] MEDS ORDERED: QUEtiapine 25 MG TAB PO SCH (21:00)
[2021-08-14 21:10] LABS: Glucose,Whole Blood 106 mg/dL (75-99)
[2021-08-15] MEDS: HEPARIN SODIUM,PORCINE/PF 5,000 UNIT/0.5 ML SYRINGE SQ SCH ×2 (02:07→07:29)
[2021-08-15] MEDS: PRAZOSIN 1 MG CAP PO SCH (02:08)
[2021-08-15] MEDS: methylPREDNISolone SOD SUCCI 125 MG/2 ML VIAL IV SCH ×2 (05:07→12:08)
--- NOTE | 2021-08-15 06:33 | CT ---
EXAMINATION TYPE: CT chest wo con DATE OF EXAM: 08/14/2021 COMPARISON: CTA chest April 28, 2021 and older studies. HISTORY: HRCT for ILD. Difficulty breathing. CT DLP: 712.2 mGycm. Automated Exposure Control for Dose Reduction was Utilized. TECHNIQUE: CT scan of the thorax is performed without IV contrast. High resolution protocol with 1 m m sequences obtained in 10 mm intervals in supine and prone technique. FINDINGS: LUNGS: Background Moderate underlying emphysematous change greatest in the upper lungs redemonstrated . Persistent multifocal areas of groundglass opacity bilaterally fairly diffusely involving upper and lower lungs redemonstrated. No pleural effusion or pneumothorax seen bilaterally. Occasional subcent imeter benign calcified nodule or granuloma bilaterally redemonstrated. There is more prominent mild to moderate bibasilar linear scarring and/or atelectasis on current exam. No significant peripheral r eticulation or fibrosis. No honeycombing. No bronchiectasis. MEDIASTINUM: Lack of IV contrast and technique are noted to limit evaluation for mediastinal and rex cially hilar adenopathy. There are no definitive greater than 1 cm noncalcified mediastinal lymph nod es. No cardiomegaly or pericardial effusion is seen. Enlarged main pulmonary artery redemonstrated consistent with underlying pulmonary artery hypertension. OTHER: Cholecystectomy clips redemonstrated on localizer. IMPRESSION: Moderate emphysematous changes greatest in the upper lungs redemonstrated. Bilateral mult ifocal groundglass opacities again seen causing overall mosaic attenuation. Consider air-trapping carmen janessa multifocal edema and/or less likely infiltrates. Worsening mild to moderate bibasilar linear scar ring noted. No bronchiectasis or peripheral fibrotic changes.
[2021-08-15 07:11] LABS: Glucose,Whole Blood 149 mg/dL (75-99)
[2021-08-15 07:29] VITALS: BP 146/96; RESP 18; TEMP 98.1
[2021-08-15] MEDS: SODIUM CHLORIDE 0.9% 1,000 ML IV SCH (07:29)
[2021-08-15] MEDS: INSULIN ASPART (NovoLOG) 100 UNIT/ML VIAL SQ SCH ×2 (07:29→11:30)
[2021-08-15] MEDS: lisinopriL 10 MG TAB PO SCH (07:30)
[2021-08-15] MEDS: HYDROcodone/APAP 5-325MG 1 EACH TAB PO PRN (07:30)
[2021-08-15] MEDS: carvediloL 6.25 MG TAB PO SCH (07:30)
[2021-08-15] MEDS: NICOTINE 14MG/24HR PATCH TRANSDERM SCH (07:30)
[2021-08-15] MEDS: ATORVASTATIN 10 MG TAB PO SCH (07:30)
[2021-08-15] MEDS: AZITHROMYCIN 500 MG TAB PO SCH (07:33)
[2021-08-15] MEDS: IPRATROPIUM-ALBUTEROL 3 ML NEB INHALATION SCH ×2 (08:37→12:28)
[2021-08-15] MEDS: FORMOTEROL FUMARATE 20 MCG/2 ML NEBU INHALATION SCH (08:38)
[2021-08-15] MEDS: BUDESONIDE 0.5 MG/2 ML NEBU INHALATION SCH (08:38)
[2021-08-15 11:18] LABS: Glucose,Whole Blood 95 mg/dL (75-99)
--- NOTE | 2021-08-15 13:11 | P.PN ---
Subjective Progress Note Date: 08/15/21 50-year-old here patient is well-known to me. The patient is known to have COPD and the patient was also suspected to have an underlying interstitial lung disease probably related to an underlying connective tissue diseases disorder. For that reason, referred this patient for a rheumatologic evaluation the patient was also supposed to have a wedge biopsy of the lung of next week by cardiothoracic surgery. However, over the past 3 days, the patient became progressively more short of breath and she end up coming into the hospital. She is a chronic smoker and she smokes somewhere between half to 1 pack of cigarettes a day. She has had multiple has position the past for COPD exacerbation and shortness of breath. Noted the patient has other comorbidities. The patient has extensive cardiac problems including previous history of V. fib arrest in 2019, nonischemic cardiomyopathy with an ejection fraction of 30%. She is not known to have coronary artery disease. She is a chronic smoker in she also has history of COPD. The patient continues to smoke about half to 1 pack of cigarettes a day. On earlier evaluations, I have noted that the patient has bilateral ground this pulmonary infiltrates and based on my follow-up on her series of CAT scans of the chest from 01/03/2021 and 04/27/2020, there was some limited improvement in the bilateral groundglass pulmonary infiltrates. There were also scattered few bilateral pulmonary nodules that were essentially inflammatory in nature. Based on that, I did a connective tissue disease workup on this patient and the patient was checked positive for STARR and this was of a low titer 1-80 and the patient also had positive anti-PIE ICER MACHINE antibodies. Rheumatoid factor was negative. Her angiotensin- converting enzyme level was also low.. The patient's most recent hospitalization was on 04/28/2021. In terms of cardiac evaluation, the patient is under the care of Dr. John Lemon. Her most recent echocardiogram showed improvement ejection fraction which was up to 45-50% without any significant valvular abnormalities. During this current admission, the patient came into the ED with increased dyspnea cough chest that is so wheezing. She is already feeling better with the use of bronchodilators and steroids. She has been vaccinated for COVID 192 and she has not received a booster. A screening test by PCR will be sent. The white cell count of 15.2 with a hemoglobin of 12 and a platelet count of 313. Renal function is stable at creatinine of 0.5 and a BUN of 9.7. 440. ALT and AST are 41 and 40 respectively 2. ProBNP level is 1920.. Face is at 0.4. Lactic acid level is at 0.9. Troponin was negative. Correlation profile was within normal limits. The chest x-ray shows some interstitial pulmonary infiltrates bilaterally. No airspace disease or consolidation is noted. 2021, the patient is improving and the patient is looking much better. HRCT of the chest was done and it shows evidence of some vague groundglass pulmonary infiltrates and this changes and there is a concern for underlying interstitial lung disease. The patient is already scheduled to undergo a surgical wedge biopsy of the lung. This was done by cardiothoracic surgery, next week. Meanwhile, the patient is feeling better. She seems to have improved considerably compared to yesterday and the patient may be considered for being discharged home today. She made a prednisone burst taper at time of discharge. No nausea. No vomiting. No chest pain. No other new complaints otherwise. HRCT of the chest was noted and this was discussed with the cardiothoracic team. Objective - Vital Signs Vital signs: Vital Signs Temp 98.1 F 08/15/21 07:27 Pulse 92 08/15/21 12:38 Resp 18 08/15/21 08:58 BP 146/96 08/15/21 07:27 Pulse Ox 98 08/15/21 08:38 Intake & Output 08/14/21 08/15/21 08/15/21 18:59 06:59 18:59 Intake Total 1488 Balance 1488 Intake: Oral 1488 Other: # Voids 2 3 - Exam The patient appeared well nourished and normally developed. Vital signs as documented. Head exam is unremarkable. No scleral icterus or corneal arcus noted. Neck is without jugular venous distension, thyromegaly, or carotid bruits. Carotid upstrokes are brisk bilaterally. Lungs sounds showed improved air entry bilaterally.. Air entry is markedly diminished in the lung bases. Cardiac exam reveals the PMI to be normally sized and situated. Rhythm is regular. First and second heart sounds normal. No murmurs, rubs or gallops. Abdominal exam reveals normal bowel sounds, no masses, no organomegaly and no aortic enlargement. Extremities are nonedematous and both femoral and pedal pulses are normal.Examination of the skin revealed no evidence of significant rashes, suspicious appearing nevi or other concerning lesions.Neurologically, the patient is awake and alert and the patient does not have any focal neurological deficit. Cranial nerves are essentially intact. - Labs CBC & Chem 7: 08/14/21 05:06 08/14/21 05:06 Labs: Abnormal Lab Results - Last 24 Hours (Table) 08/14/21 08/15/21 Range/Units 21:07 07:09 POC Glucose (mg/dL) 106 H 149 H (75-99) mg/dL Assessment and Plan Plan: 1 acute COPD exacerbation with secondary shortness of breath. At the same time that has been always a concern of an underlying interstitial lung disease. The presentation is typical for a COPD exacerbation for now. Clinically the patient is improving and she has responded nicely to a combination of bronchodilators steroids over the past 24 hours. 2 chronic and nonspecific bilateral groundglass pulmonate changes. ILD was suspected. The patient has a positive STARR and anti-PIE [employer]ER MACHINE antibodies. I have referred this patient to a lead bi developer for an underlying connective tissue disease workup. No lung biopsies of been done yet and these findings are essentially chronic. Underlying lupus versus mixed connective tissue disease disorder. The patient is currently seeing Dr. Mckeon from rheumatology. The patient is also seen Dr. Toy Mann and the patient was supposed to undergo an open wedge resection of the lung for histologic confirmation/diagnoses of an underlying interstitial lung disease. This was tentatively scheduled to be done on 08/24/2021. HRCT of the chest was done and the patient continues to have some vague interstitial changes and she would benefit from a biopsy. 2 CHF with ejection fraction of around 45% 3 dyspnea and cough secondary to above 4 previous history of cardiac arrest 5 COPD 6 smoking 7 history of alcoholism 8 hypertension 9 hyperlipidemia 10 positive STARR, weak with a titer of 1-80 11 positive anti-PIE ICER MACHINE Plan Obtain HRCT of the chest was noted and there is still abnormal groundglass changes, chronic, could be related to connective tissue disease versus ILD versus smoking and and the patient will need a wedge biopsy of the lung and this event and is scheduled to be done next week on . Clinically improved Continue bronchodilators Continue steroids, and the patient can be discharged home on a prednisone burst taper Smoking cessation counseling Patient has been maintained on Advair and Spiriva on outpatient basis Rheumatology follow-up on outpatient basis We'll continue to follow, may be discharged today or tomorrow to be followed up next week for a wedge biopsy of the lung and subsequent recommendations to follow based on the results.
[2021-08-15 14:10] VITALS: PULSE 99
--- NOTE | 2021-08-16 15:53 | P.DS ---
Providers Date of admission: 08/13/21 05:17 Expected date of discharge: 08/16/21 Attending physician: Gabe Youssef MD Consults: 08/14/21 11:29 Consult Physician Routine Consulting Provider: Flavio Armstrong Consult Reason/Comments: copd Do you want consulting provider notified?: Yes Primary care physician: Gabe Youssef MD Hospital Course: Acute COPD exacerbation, suspected ILD Acute hypoxic respiratory failure secondary to the above Suspected underlying connective tissue disease workup, follow-up with presiding judge, Dr. Mckeon as previously recommended. Chronic CHF with diastolic dysfunction Pulmonary hypertension Hypovolemic hyponatremia Nonischemic cardiomyopathy with recovered ejection fraction History of ventricular fibrillation and cardiac arrest in 2019 Ongoing Nicotine dependence Crack cocaine use Daily alcohol use Hypertension Hyperlipidemia Hospital course:This is a 50-year-old female admitted with acute COPD exacerbation, suspected underlying interstitial lung disease, scheduled for open wedge resection -diagnosis confirmation of underlying interstitial lung disease, 08/24/2021, maintained on nebulized bronchodilators, steroids and antibiotics. Complains of anxiety, difficulty sleeping. Maintaining O2 sats in the low 90s on 3 L nasal cannula. Afebrile, WBC 13.23. Renal function stable. Chest CT pending. Significant clinical improvement. Cleared by pulmonary for discharge. Smoking cessation reinforced. Denies chest pain, palpitations or increasing shortness of breath. Patient will be discharged home today in stable condition with guarded prognosis. The impression and plan of care has been dictated as directed. : I performed a history and examination of this patient, discussed the same with the dictator. I agree with the dictator's note ,documented as a scribe. Any additional findings or plans will be noted. Patient Condition at Discharge: Stable Plan - Discharge Summary New Discharge Prescriptions: New Ipratropium-Albuterol Nebulize [Duoneb 0.5 mg-3 mg/3 ml Soln] 3 ml INHALATION RT-QID #120 ml Nicotine 14Mg/24Hr Patch [Habitrol] 1 patch TRANSDERM DAILY #30 patch predniSONE 10 mg PO DIRECTED #30 tab QUEtiapine [SEROquel] 25 mg PO HS #15 tab Continue Atorvastatin [Lipitor] 10 mg PO DAILY lisinopriL 30 mg PO DAILY Fluticasone/Salmeterol [Advair Hfa 230-21 Mcg Inhaler] 2 puff INHALATION RT- BID Loratadine [Claritin] 10 mg PO DAILY Tiotropium 18 Mcg/Puff [Spiriva] 2 puff INHALATION RT-DAILY carvediloL [Coreg] 6.25 mg PO BID Prazosin [Minipress] 1 mg PO HS Albuterol Sulfate [Proair Hfa] 2 puff INHALATION RT-QID PRN PRN Reason: Shortness Of Breath Discharge Medication List Atorvastatin [Lipitor] 10 mg PO DAILY 01/22/20 [History] Fluticasone/Salmeterol [Advair Hfa 230-21 Mcg Inhaler] 2 puff INHALATION RT-BID 04/28/21 [History] carvediloL [Coreg] 6.25 mg PO BID 04/28/21 [History] lisinopriL 30 mg PO DAILY 04/28/21 [History] Albuterol Sulfate [Proair Hfa] 2 puff INHALATION RT-QID PRN 08/13/21 [History] Loratadine [Claritin] 10 mg PO DAILY 08/13/21 [History] Prazosin [Minipress] 1 mg PO HS 08/13/21 [History] Tiotropium 18 Mcg/Puff [Spiriva] 2 puff INHALATION RT-DAILY 08/13/21 [History] Ipratropium-Albuterol Nebulize [Duoneb 0.5 mg-3 mg/3 ml Soln] 3 ml INHALATION RT-QID #120 ml 08/15/21 [Rx] Nicotine 14Mg/24Hr Patch [Habitrol] 1 patch TRANSDERM DAILY #30 patch 08/15/21 [Rx] QUEtiapine [SEROquel] 25 mg PO HS #15 tab 08/15/21 [Rx] predniSONE 10 mg PO DIRECTED #30 tab 08/15/21 [Rx] Follow up Appointment(s)/Referral(s): Gabe Youssef MD [Primary Care Provider] - 08/21/21 4:15 pm (at the [place] office) Patient Instructions/Handouts: COPD (Chronic Obstructive Pulmonary Disease) (DC) Discharge Disposition: HOME SELF-CARE
== END 2021-08-15 14:51 | disposition home or self-care (01) | DRG 190 ==
LOC: EC 23:49 → 4SSUR 08-13 05:17
PROVIDERS: ADMIT Family Medicine; ATTEND Family Medicine
DX: J44.1 Chronic obstructive pulmonary disease with (acute) exacerbation (principal); J96.01 Acute respiratory failure with hypoxia; E87.1 Hypo-osmolality and hyponatremia; J45.901 Unspecified asthma with (acute) exacerbation; J84.9 Interstitial pulmonary disease, unspecified; I42.8 Other cardiomyopathies; I50.32 Chronic diastolic (congestive) heart failure; I11.0 Hypertensive heart disease with heart failure; E78.5 Hyperlipidemia, unspecified; E86.1 Hypovolemia; F17.210 Nicotine dependence, cigarettes, uncomplicated; F41.9 Anxiety disorder, unspecified; I27.20 Pulmonary hypertension, unspecified; I49.3 Ventricular premature depolarization; Z79.51 Long term (current) use of inhaled steroids; Z79.899 Other long term (current) drug therapy; Z82.49 Family history of ischemic heart disease and other diseases of the circulatory system; Z82.5 Family history of asthma and other chronic lower respiratory diseases; Z86.74 Personal history of sudden cardiac arrest; Z86.79 Personal history of other diseases of the circulatory system
CPT/HCPCS: 36415; 71045; 71250; 80048; 80053; 83605; 83735; 83880; 84443; 84484; 85025; 85610; 85730; 93005; 94640; 94760; 96374; 96375; 99291

== ENCOUNTER → 2021-08-21 | Outpatient (CLI) | payer OTHER ==
[2021-08-21 12:11] LABS: INR 0.9 (<1.2); Partial Thromboplastin Time 23.8 sec (22.0-30.0); Prothrombin Time 10.2 sec (9.0-12.0)
[2021-08-21 18:27] LABS: Basophils # (A) 0.03 X 10*3/uL (0.00-0.10); Basophils % (A) 0.3 %; Eosinophils # (A) 0.12 X 10*3/uL (0.04-0.35); Eosinophils % (A) 1.1 %; HCT 48.8 % (37.2-46.3); Immature Grans, Automated 0.9 %; Lymphocytes # (A) 1.78 X 10*3/uL (0.90-5.00); Lymphocytes % (A) 16.3 %; MCH 21.7 pg (27.0-32.0); MCHC 26.6 g/dL (32.0-37.0); MCV 81.3 fL (80.0-97.0); Mean Platelet Volume 9.3 fL (9.5-12.2); Monocytes # (A) 1.43 X 10*3/uL (0.20-1.00); Monocytes % (A) 13.1 %; NRBC Per 100 WBC 0 /100 WBCS (0.0-0.0); Neutrophils # (A) 7.43 X 10*3/uL (1.80-7.70); Neutrophils % (A) 68.3 %; Platelet Count 362 X 10*3/uL (140-440); RDW 19.8 % (11.5-14.5); WBC 10.89 X 10*3/uL (4.50-10.00)
[2021-08-21 18:36] LABS: African American GFR (CKD) 125.9 (60.0-200.0); Anion Gap 9.2 mmol/L (10.00-18.00); Blood Urea Nitrogen 11.8 mg/dL (9.0-27.0); Carbon Dioxide 27.8 mmol/L (20.0-27.5); Non-African American GFR(CKD) 108.6 (60.0-200.0); Potassium 4.9 mmol/L (3.5-5.5)
[2021-08-22 12:53] LABS: Coronavirus SARS CoV-2 Not Detected (Not Detected)
== END | disposition home or self-care (01) ==
LOC: LABPAT 11:02
PROVIDERS: ATTEND Thoracic Surgery (Cardiothoracic Vascular Surgery)
DX: Z01.812 Encounter for preprocedural laboratory examination (principal); U07.1 COVID-19; E86.0 Dehydration; R58 Hemorrhage, not elsewhere classified; R91.1 Solitary pulmonary nodule
CPT/HCPCS: 80051; 82565; 82947; 84520; 85025; 85610; 85730; U0003

== ENCOUNTER 2022-12-28 11:46 | Inpatient (IN) | payer OTHER ==
[2022-12-28] MEDS ORDERED: hydrALAZINE HCL 20 MG/ML 1 ML VIAL IVP STA ×2 (12:12→14:50)
[2022-12-28 12:24] LABS: Basophils % (A) 0 %; Eosinophils # (A) 0.1 k/uL (0-0.7); Eosinophils % (A) 2 %; HCT 44.4 % (34.0-46.0); HGB 15.2 gm/dL (11.4-16.0); Lymphocytes # (A) 1.3 k/uL (1.0-4.8); Lymphocytes % (A) 16 %; MCH 30.8 pg (25.0-35.0); MCHC 34.1 g/dL (31.0-37.0); MCV 90.1 fL (80.0-100.0); Mean Platelet Volume 8.3; Monocytes # (A) 0.6 k/uL (0-1.0); Monocytes % (A) 7 %; Neutrophils # (A) 5.8 k/uL (1.3-7.7); Neutrophils % (A) 73 %; Platelet Count 222 k/uL (150-450); RBC 4.93 m/uL (3.80-5.40); RDW 13.3 % (11.5-15.5)
[2022-12-28 12:35] LABS: ALT 73 U/L (4-34); AST 67 U/L (14-36); African American GFR (CKD) >90 (>60 ml/min/1.73 sqM); Albumin 4.5 g/dL (3.5-5.0); Alkaline Phosphatase 77 U/L (38-126); Anion Gap 8 mmol/L; Blood Urea Nitrogen 12 mg/dL (7-17); Calcium 9.6 mg/dL (8.4-10.2); Carbon Dioxide 25 mmol/L (22-30); Chloride 107 mmol/L (98-107); Glucose 99 mg/dL (74-99); Magnesium 1.9 mg/dL (1.6-2.3); Non-African American GFR(CKD) >90 (>60 ml/min/1.73 sqM); Potassium 4.9 mmol/L (3.5-5.1); Sodium 140 mmol/L (137-145); Total Bilirubin 0.7 mg/dL (0.2-1.3); Total Protein 7.7 g/dL (6.3-8.2)
[2022-12-28 12:42] LABS: INR 0.9 (<1.2); Partial Thromboplastin Time 24.6 sec (22.0-30.0); Prothrombin Time 9.7 sec (9.0-12.0)
--- NOTE | 2022-12-28 12:49 | ED ---
General Adult HPI - General Chief complaint: Chest Pain Stated complaint: chest pain, hypertension Time Seen by Provider: 12/28/22 11:54 Source: patient, RN notes reviewed, old records reviewed Mode of arrival: ambulatory Limitations: no limitations - History of Present Illness Initial comments: 52-year-old female presenting with 2 or 3 days of chest pain. Pain does radiate into her back. She took her blood pressure this morning and noted that it was quite elevated. She has history of hypertension and is currently on Coreg and lisinopril. She states she's been compliant with these medications. She states that in 2019 she had a cardiac arrest and states that they were uncertain of the cause of this cardiac arrest. She states she had heart catheterization at that time which do not show any obstruction and she did not receive any stents. She does not have an AICD. She denies vomiting. Denies diaphoresis. - Related Data Home Medications Medication Instructions Recorded Confirmed Atorvastatin [Lipitor] 10 mg PO DAILY 01/22/20 12/28/22 Fluticasone Propion/Salmeterol 1 puff INHALATION RT-BID 04/28/21 12/28/22 [Advair Hfa 230-21 Mcg Inhaler] carvediloL [Coreg] 6.25 mg PO BID 04/28/21 12/28/22 lisinopriL 30 mg PO DAILY 04/28/21 12/28/22 Tiotropium 2.5 Mcg/Puff [Spiriva 2 puff INHALATION RT-DAILY 12/28/22 12/28/22 Respimat 2.5 Mcg] Allergies Allergy/AdvReac Type Severity Reaction Status Date / Time No Known Allergies Allergy Verified 12/28/22 13:40 Review of Systems ROS Statement: Those systems with pertinent positive or pertinent negative responses have been documented in the HPI. ROS Other: All systems not noted in ROS Statement are negative. Past Medical History Past Medical History: Coronary Artery Disease (CAD), Chest Pain / Angina, COPD, Hypertension Additional Past Medical History / Comment(s): hx. in 2019 of going to ER with chest pain/HTN and sent home then went to work and had a cardiac arrest in 2019/pt states she had echo and cardiac cath-all normal-no cause ever found for arrest, no recent chest pain issues, sinus problems, recent adm. for COPD exacerbation, d/c 3-2 History of Any Multi-Drug Resistant Organisms: None Reported Past Surgical History: Back Surgery, Cholecystectomy, Heart Catheterization, Orthopedic Surgery, Tubal Ligation Additional Past Surgical History / Comment(s): 2019 normal cardiac cath [facility], L4-L5 discectomyn lung biopsy August 2021 Past Anesthesia/Blood Transfusion Reactions: No Reported Reaction Past Psychological History: No Psychological Hx Reported Smoking Status: Former smoker Past Alcohol Use History: Occasional Past Drug Use History: None Reported - Past Family History Father Family Medical History: Cancer Additional Family Medical History / Comment(s): Father at the age of 37 yrs from cancer from agent orange exposure in [place] per pt. Mother Family Medical History: Congestive Heart Failure (CHF), COPD, Myocardial Infarction (RI) Additional Family Medical History / Comment(s): Mother had a RI at the age of 60 yrs. She is 67yrs old. General Exam Limitations: no limitations General appearance: alert, in no apparent distress Head exam: Present: atraumatic, normocephalic Eye exam: Present: normal appearance, PERRL ENT exam: Present: normal exam Neck exam: Present: normal inspection. Absent: tenderness, meningismus Respiratory exam: Present: normal lung sounds bilaterally. Absent: respiratory distress, wheezes Cardiovascular Exam: Present: regular rate, normal rhythm GI/Abdominal exam: Present: soft. Absent: distended, tenderness, guarding Extremities exam: Present: normal inspection, normal capillary refill. Absent: pedal edema Neurological exam: Present: alert, oriented X3, CN II-XII intact. Absent: motor sensory deficit Psychiatric exam: Present: normal affect, normal mood Skin exam: Present: warm, dry, intact. Absent: cyanosis, diaphoretic Course Vital Signs 12/28/22 12/28/22 12/28/22 11:47 11:58 12:00 Temperature 97.9 F Pulse Rate 85 80 Pulse Rate [ Veneer Stapler ] Respiratory 22 17 Rate Blood Pressure 199/146 O2 Sat by Pulse 95 96 93 L Oximetry 12/28/22 12/28/22 12/28/22 12:08 12:10 12:20 Temperature Pulse Rate 74 72 Pulse Rate [ 80 Veneer Stapler ] Respiratory 20 16 Rate Blood Pressure 181/117 181/117 155/97 O2 Sat by Pulse 97 97 Oximetry 12/28/22 12/28/22 12/28/22 12:23 12:28 12:30 Temperature Pulse Rate 75 87 Pulse Rate [ Veneer Stapler ] Respiratory 20 20 14 Rate Blood Pressure 145/86 145/86 O2 Sat by Pulse 98 95 Oximetry 12/28/22 12/28/22 12/28/22 12:40 12:50 13:00 Temperature Pulse Rate 89 87 84 Pulse Rate [ Veneer Stapler ] Respiratory 21 20 12 Rate Blood Pressure 157/95 157/95 157/95 O2 Sat by Pulse 95 95 95 Oximetry 12/28/22 13:02 Temperature Pulse Rate 65 Pulse Rate [ Veneer Stapler ] Respiratory 16 Rate Blood Pressure 157/95 O2 Sat by Pulse 98 Oximetry Medical Decision Making - Medical Decision Making Was pt. sent in by a medical professional or institution (, PA, RUBBER GOODS INSPECTOR, urgent care, hospital, or custodial...) When possible be specific @ -No Did you speak to anyone other than the patient for history (EMS, parent, family, police, friend...)? What history was obtained from this source @ -No Did you review nursing and triage notes (agree or disagree)? Why? @ -I reviewed and agree with nursing and triage notes Were old charts reviewed (outside hosp., previous admission, EMS record, old EKG, old radiological studies, urgent care reports/EKG's, custodial records)? Report findings @ -No old charts were reviewed Differential Diagnosis (chest pain, altered mental status, abdominal pain women, abdominal pain men, vaginal bleeding, weakness, fever, dyspnea, syncope, headache, dizziness, GI bleed, back pain, seizure, CVA, palpatations, mental health, musculoskeletal)? @ Differential Chest Pain: Stable Angina, Unstable Angina, STEMI, NSTEMI Aortic Dissection, Pneumothorax, Musculoskeletal, Esophageal Spasm GERD, Cholecystitis, Pancreatitis, Zoster, this is not meant to be an all-inclusive list. EKG interpreted by me (3pts min.). @ -Sinus rhythm low voltage, there is T-wave inversion in leads [address] segment elevation rate of 77, GA interval 174, QRS duration 85, QTC 377 X-rays interpreted by me (1pt min.). @ -None done CT interpreted by me (1pt min.). @ -CT negative for aneurysm or dissection, does show calcium occasions within the LAD and several incidental findings. U/S interpreted by me (1pt. min.). @ -None done What testing was considered but not performed or refused? (CT, X-rays, U/S, labs)? Why? @ -None What meds were considered but not given or refused? Why? @ -None Did you discuss the management of the patient with other professionals (professionals i.e. , PA, RUBBER GOODS INSPECTOR, lab, RT, psych nurse, transition social worker, pick pulling machine operator, teacher, chief commercial officer, case managers)? Give summary @ [facility] Was smoking cessation discussed for >3mins.? @ -No Was critical care preformed (if so, how long)? @ -No Were there social determinants of health that impacted care today? How? (Teresa elessness, low income, unemployed, alcoholism, drug addiction, transportation, low edu. Level, literacy, decrease access to med. care, detention, rehab)? @ -No Was there de-escalation of care discussed even if they declined (Discuss DNR or withdrawal of care, Hospice)? DNR status @ -No What co-morbidities impacted this encounter? (DM, HTN, Smoking, COPD, CAD, Cancer, CVA, ARF, Chemo, Hep., AIDS, mental health diagnosis, sleep apnea, morbid obesity)? @ -Hypertension Was patient admitted / discharged? Hospital course, mention meds given and route, prescriptions, significant lab abnormalities, going to OR and other pertinent info. @ -52-year-old female presenting with chest discomfort, pain into her back and significant elevated blood pressure. I did initiate workup both for acute RI and aortic pathology. Patient's given IV antihypertensives upon arrival with significant improvement in blood pressure. CT was negative for dissection or aneurysm. EKG was sinus with T-wave inversion in the inferior leads. Initial troponin is negative. Patient will require observation period for serial cardiac enzymes, telemetry, cardiology consultation. Case discussed with Dr. Peterson who will admit. Undiagnosed new problem with uncertain prognosis? @ -No Drug Therapy requiring intensive monitoring for toxicity (Heparin, Nitro, Insulin, Cardizem)? @ -No Were any procedures done? @ -No Diagnosis/symptom? @ -Chest pain, hypertension Acute, or Chronic, or Acute on Chronic? @ -Acute on chronic Uncomplicated (without systemic symptoms) or Complicated (systemic symptoms)? @ -default Side effects of treatment? @ -No Exacerbation, Progression, or Severe Exacerbation? @ -No Poses a threat to life or bodily function? How? (Chest pain, USA, RI, pneumonia, PE, COPD, DKA, ARF, appy, cholecystitis, CVA, Diverticulitis, Homicidal, Suicidal, threat to staff... and all critical care pts) @ -[yes, Chest pain - Lab Data Result diagrams: 12/28/22 12:01 12/28/22 12:01 Lab Results 12/28/22 12/28/22 12/28/22 Range/Units 12: 12: 12:01 WBC 8.0 (3.8-10.6) k/uL RBC 4.93 (3.80-5.40) m/uL Hgb 15.2 (11.4-16.0) gm/dL Hct 44.4 (34.0-46.0) % MCV 90.1 (80.0-100.0) fL MCH 30.8 (25.0-35.0) pg MCHC 34.1 (31.0-37.0) g/dL RDW 13.3 (11.5-15.5) % Plt Count 222 (150-450) k/uL MPV 8.3 Neutrophils % 73 % Lymphocytes % 16 % Monocytes % 7 % Eosinophils % 2 % Basophils % 0 % Neutrophils # 5.8 (1.3-7.7) k/uL Lymphocytes # 1.3 (1.0-4.8) k/uL Monocytes # 0.6 (0-1.0) k/uL Eosinophils # 0.1 (0-0.7) k/uL Basophils # 0.0 (0-0.2) k/uL PT 9.7 (9.0-12.0) sec INR 0.9 (<1.2) APTT 24.6 (22.0-30.0) sec Sodium 140 (137-145) mmol/L Potassium 4.9 (3.5-5.1) mmol/L Chloride 107 (98-107) mmol/L Carbon Dioxide 25 (22-30) mmol/L Anion Gap 8 mmol/L BUN 12 (7-17) mg/dL Creatinine 0.57 (0.52-1.04) mg/dL Est GFR (CKD-EPI)AfAm >90 (>60 ml/min/1.73 sqM) Est GFR (CKD-EPI)NonAf >90 (>60 ml/min/1.73 sqM) Glucose 99 (74-99) mg/dL Calcium 9.6 (8.4-10.2) mg/dL Magnesium 1.9 (1.6-2.3) mg/dL Total Bilirubin 0.7 (0.2-1.3) mg/dL AST 67 H (14-36) U/L ALT 73 H (4-34) U/L Alkaline Phosphatase 77 (38-126) U/L Troponin I (0.000-0.034) ng/mL NT-Pro-B Natriuret Pep pg/mL Total Protein 7.7 (6.3-8.2) g/dL Albumin 4.5 (3.5-5.0) g/dL 12/28/22 12/28/22 Range/Units 12:01 12:01 WBC (3.8-10.6) k/uL RBC (3.80-5.40) m/uL Hgb (11.4-16.0) gm/dL Hct (34.0-46.0) % MCV (80.0-100.0) fL MCH (25.0-35.0) pg MCHC (31.0-37.0) g/dL RDW (11.5-15.5) % Plt Count (150-450) k/uL MPV Neutrophils % % Lymphocytes % % Monocytes % % Eosinophils % % Basophils % % Neutrophils # (1.3-7.7) k/uL Lymphocytes # (1.0-4.8) k/uL Monocytes # (0-1.0) k/uL Eosinophils # (0-0.7) k/uL Basophils # (0-0.2) k/uL PT (9.0-12.0) sec INR (<1.2) APTT (22.0-30.0) sec Sodium (137-145) mmol/L Potassium (3.5-5.1) mmol/L Chloride (98-107) mmol/L Carbon Dioxide (22-30) mmol/L Anion Gap mmol/L BUN (7-17) mg/dL Creatinine (0.52-1.04) mg/dL Est GFR (CKD-EPI)AfAm (>60 ml/min/1.73 sqM) Est GFR (CKD-EPI)NonAf (>60 ml/min/1.73 sqM) Glucose (74-99) mg/dL Calcium (8.4-10.2) mg/dL Magnesium (1.6-2.3) mg/dL Total Bilirubin (0.2-1.3) mg/dL AST (14-36) U/L ALT (4-34) U/L Alkaline Phosphatase (38-126) U/L Troponin I <0.012 (0.000-0.034) ng/mL NT-Pro-B Natriuret Pep 332 pg/mL Total Protein (6.3-8.2) g/dL Albumin (3.5-5.0) g/dL Disposition Clinical Impression: Chest pain Disposition: ADMITTED IP TO THIS HOSP Condition: Stable Is patient prescribed a controlled substance at d/c from ED?: No Referrals: Gabe Youssef MD [Primary Care Provider] - 1-2 days Time of Disposition: 14:09
--- NOTE | 2022-12-28 13:01 | CT ---
EXAMINATION TYPE: CT angio thor/abd pel aorta DATE OF EXAM: 12/28/2022 COMPARISON: Chest 04/28/2021 HISTORY: 52-year-old female Chest and back pains, high blood pressure TECHNIQUE: Contiguous axial scanning of the chest, abdomen, and pelvis performed without and with IV Contrast, patient injected with 100 mL of Isovue 370. Coronal/sagittal reconstructions performed. 3-D reconstructions generated on a dedicated independent workstation. CT DLP: 1518.2 mGycm Automated exposure control for dose reduction was used. FINDINGS: VASCULATURE: Mild aortic valvular calcifications. Initial noncontrast images show no evidence for acute intramural hematoma within the thoracic aorta. There are mild atherosclerotic arch calcifications with conventional arch vessel branching anatomy. No evidence for aortic dissection or aneurysm. Mild atherosclerotic calcifications infrarenal abdominal aorta and iliac arteries. CHEST: Heart normal size without pericardial effusion. LAD coronary artery calcifications noted. Borderline to mildly enlarged caliber to the main right and left pulmonary arteries up to 2.6 cm sugg esting underlying pulmonary artery hypertension. No thoracic lymphadenopathy by CT size criteria. Moderate emphysematous change. Numerous scattered calcified granulomas throughout the lungs. Some pos tsurgical change left mid to lower lung. Strandy scarring/atelectasis mid and lower lungs. No consoli dation or pleural effusion. There is a 5 cm fatty mesenteric hernia across a small 1 cm defect within the lateral aspect of the l eft hemidiaphragm. Findings appear to be new compared to 08/14/2021. Some adjacent atelectasis/scarrin g is noted. ABDOMEN: Liver borderline enlarged at 17.9 cm. Low attenuation suggests fatty infiltration. Cholecystectomy cl ips. Arterial phase and noncontrast appearance of the adrenal glands, kidneys, spleen, and pancreas within normal limits. Circumaortic left renal vein. Clustered nonenlarged and borderline in mildly enlarged mid mesenteric lymph nodes measuring up to 1. 7 cm, axial image 176. No dilated small bowel, free fluid, or free air. No mesenteric or retroperitoneal lymphadenopathy. Normal appendix. Mild circumferential wall thickening on the right side of the colon may be due to in complete distention. There is sigmoid diverticulosis without pericolonic inflammatory change. Pelvis: Bladder partially distended. Uterus anteverted. Both ovaries are visualized. There is a 2.2 cm cyst o r dominant follicle of the right ovary. No abnormal fluid collection in the pelvis or pelvic lymphade nopathy. Bones: No osseous destructive process. IMPRESSION: 1. NO EVIDENCE FOR AORTIC ANEURYSM OR DISSECTION. 2. THERE IS A 5 CM LEFT LATERAL DIAPHRAGMATIC HERNIA CONTAINING MESENTERIC FAT. THE HERNIATION OCCUR S ACROSS A SMALL 1 CM DIAPHRAGMATIC DEFECT WHICH APPEARS TO BE NEW EVEN COMPARED TO 08/14/2021. RECOMM END SURGICAL REFERRAL TO DETERMINE THE NEED FOR ANY PLANNED REPAIR. 3. CLUSTERED BORDERLINE ENLARGED TO ENLARGED MID MESENTERIC LYMPH NODES MEASURING UP TO 1.7 CM. POSS IBLY REACTIVE/POST INFLAMMATORY. RECOMMEND THREE-MONTH FOLLOW-UP CT CHEST TO ENSURE STABILITY/RESOLUT ION. 4. MILD CIRCUMFERENTIAL WALL THICKENING ON THE RIGHT SIDE OF THE COLON MAY BE DUE TO INCOMPLETE DIST ENTION OR NONSPECIFIC MILD COLITIS. CORRELATE WITH SYMPTOMS. 5. LAD CALCIFICATIONS. COPD. PULMONARY ARTERIAL HYPERTENSION. PRIOR GRANULOMATOUS DISEASE.
[2022-12-28] MEDS ORDERED: ASPIRIN 325 MG TAB PO STA (13:07)
[2022-12-28] MEDS ORDERED: MORPHINE SULFATE 4 MG/ML SYRINGE IV PRN (14:02)
[2022-12-28] MEDS ORDERED: ONDANSETRON 4 MG/2 ML VIAL IVP PRN (14:02)
[2022-12-28] MEDS ORDERED: ACETAMINOPHEN TAB 325 MG TAB PO PRN (14:02)
[2022-12-28] MEDS ORDERED: NALOXONE 0.4 MG/ML 1 ML VIAL IV PRN (14:02)
[2022-12-28] MEDS ORDERED: NITROGLYCERIN OINT 1 INCH/GM PACKET TOPICAL STA (14:11)
[2022-12-28] MEDS: carvediloL 6.25 MG TAB PO SCH (18:29)
[2022-12-28] MEDS: SYMBICORT 160-4.5 MCG INHALER INHALATION SCH (20:40)
--- NOTE | 2022-12-29 02:02 | HP ---
HISTORY AND PHYSICAL CHIEF COMPLAINT: Chest pain. HISTORY OF PRESENT ILLNESS: This is a 52-year-old woman with a past medical history of multiple medical problems including CAD, COPD, was complaining of chest pain. The pain is felt mostly in the anterior part of chest, radiating to the left arm. The patient is currently on Coreg and lisinopril. There is no history of any fever, rigors, or chills. The patient apparently had a cardiac arrest in 2019. There is no history of any fever or rigors. PAST MEDICAL HISTORY: CAD, COPD, cardiac arrest previously. Rest of the history and rest of the chart is also reviewed. HOME MEDICATIONS: Reviewed include lisinopril. Doses and rest of medications reviewed. ALLERGIES: None. FAMILY HISTORY: History of cancer in the family. SOCIAL HISTORY: Previous history of smoking. REVIEW OF SYSTEMS: A 14-point review is negative except as mentioned earlier. PHYSICAL EXAMINATION: VITAL SIGNS: Pulse is 87, blood pressure 157/91, respirations 18. HEENT: Conjunctivae normal. NECK: No JVD. CARDIOVASCULAR: S1, S2. RESPIRATIONS: Breath sounds diminished at the bases. ABDOMEN: Soft, nontender. LEGS: No edema. NERVOUS SYSTEM: Nonfocal. SKIN: No ulcer, rash, or bleeding. JOINTS: No active deforming arthropathy. LABORATORY DATA: Noted. AST, ALT noted. ASSESSMENT: 1. Chest pain, possible unstable angina. 2. Hypertension. 3. History of cardiac arrest and coronary artery disease. 4. Chronic obstructive pulmonary disease. 5. Multiple complex medical issues. RECOMMENDATIONS AND DISCUSSION: This is a 52-year-old woman, who presented with multiple complex medical issues, we will monitor the patient closely. We will rule out myocardial infarction. Unstable angina protocol. Cardiology consultation. Antiplatelet agents and rest of medications. The patient had apparently normal cardiac arrest in 2019, but however, the prognosis is extremely guarded because of multiple complex medical issues. Further recommendations to follow. See orders for further details. MMODL / IJN: [id number] /
[2022-12-29] MEDS: carvediloL 6.25 MG TAB PO SCH (06:15)
[2022-12-29 07:41] VITALS: RESP 16
[2022-12-29] MEDS: SYMBICORT 160-4.5 MCG INHALER INHALATION SCH (08:40)
[2022-12-29] MEDS: IPRATROPIUM 0.5 MG/2.5 ML NEBU INHALATION SCH ×3 (08:40→15:37)
[2022-12-29] MEDS ORDERED: ASPIRIN 81 MG PO SCH (09:00)
[2022-12-29] MEDS ORDERED: PANTOPRAZOLE 40 MG/10 ML VIAL IV SCH (09:00)
[2022-12-29] MEDS ORDERED: lisinopriL 10 MG TAB PO SCH (09:00)
[2022-12-29] MEDS ORDERED: ATORVASTATIN 10 MG TAB PO SCH (09:00)
[2022-12-29] MEDS ORDERED: carvediloL 6.25 MG TAB PO ONE (09:30)
[2022-12-29] MEDS ORDERED: lisinopriL 10 MG TAB PO ONE (09:30)
[2022-12-29 09:35] LABS: BUN/Creat Ratio 22.29 Ratio (12.00-20.00); Blood Urea Nitrogen 15.6 mg/dL (9.0-27.0); Calcium 9.3 mg/dL (8.7-10.3); Carbon Dioxide 23.3 mmol/L (21.6-31.8); Chloride 106 mmol/L (96-109); Glucose 104 mg/dL (70-110); Potassium 4.1 mmol/L (3.5-5.5); Sodium 142 mmol/L (135-145)
[2022-12-29 12:23] LABS: Basophils # (A) 0.02 X 10*3/uL (0.00-0.10); Basophils % (A) 0.3 %; Eosinophils # (A) 0.09 X 10*3/uL (0.04-0.35); Eosinophils % (A) 1.6 %; HGB 13.8 d/dL (12.0-15.0); Lymphocytes # (A) 1.12 X 10*3/uL (0.90-5.00); Lymphocytes % (A) 19.5 %; MCH 30.7 pg (27.0-32.0); MCHC 32.9 d/dL (32.0-37.0); MCV 93.5 FL (80.0-97.0); Monocytes # (A) 0.78 X 10*3/uL (0.20-1.00); Monocytes % (A) 13.6 %; NRBC Per 100 WBC 0 X 10*3/uL (0.00-0.01); Neutrophils # (A) 3.71 X 10*3/uL (1.80-7.70); Neutrophils % (A) 64.7 %; Platelet Count 208 X 10*3/uL (140-440); RBC 4.49 X 10*6/uL (4.10-5.20); RDW 13.4 % (11.5-14.5); WBC 5.74 X 10*3/uL (4.50-10.00)
--- NOTE | 2022-12-29 12:53 | P.CRDCN ---
History of Present Illness Consult date: 12/29/22 Requesting physician: Remi Nevarez Reason for Consult (text): chest pain Chief complaint: chest tightness History of present illness: This is a pleasant 52-year-old female patient with a history of cocaine abuse many years ago, alcohol abuse, V. fib cardiac arrest in 2019, cardiomyopathy with ejection fraction of 30% in 2019 with most recent echocardiogram in April showing ejection fraction of 50-55%, hypertension, hyperlipidemia and COPD. Normal coronaries by heart cath in 2019. She follows in the office with Dr. Coles. She presented to the emergency department after developing some chest tightness while shopping at [employer]. Upon arriving home she checked her blood pressure and was noted to be significantly elevated. Blood pressure has been elevated since admission. EKG and cardiac enzymes have been unremarkable. She has been abstaining from illicit drugs and quit smoking about a year ago. Her breathing has been well controlled. She does admit to drinking 2 beers a da y. She's been under an increased stress due to her mother's health issues. According to her she's been compliant with her medications. She was seen in the office last in April at which time was recommended to undergo a Lexiscan stress test which was never scheduled. Upon examination the patient is resting comfortably in bed. She's feeling a bit better. Denies chest tightness. Blood pressure remains elevated. Is currently on lisinopril 30 mg daily and carvedilol 6.25 mg twice a day. Past Medical History Past Medical History: Coronary Artery Disease (CAD), Chest Pain / Angina, COPD, Hypertension Additional Past Medical History / Comment(s): hx. in 2019 of going to ER with chest pain/HTN and sent home then went to work and had a cardiac arrest in 2019/pt states she had echo and cardiac cath-all normal-no cause ever found for arrest, no recent chest pain issues, sinus problems, recent adm. for COPD exacerbation, d/c 3-08-08 History of Any Multi-Drug Resistant Organisms: None Reported Past Surgical History: Back Surgery, Cholecystectomy, Heart Catheterization, Or thopedic Surgery, Tubal Ligation Additional Past Surgical History / Comment(s): 2019 normal cardiac cath @[facility], L4-L5 discectomyn lung biopsy August 2021 Past Anesthesia/Blood Transfusion Reactions: No Reported Reaction Past Psychological History: No Psychological Hx Reported Smoking Status: Former smoker Past Alcohol Use History: Occasional Additional Past Alcohol Use History / Comment(s): Pt started smoking in 1989 and is a some day smoker. currently tryng to quit. wears nicotine patch at home. Past Drug Use History: None Reported - Past Family History Father Family Medical History: Cancer Additional Family Medical History / Comment(s): Father at the age of 37 yrs from cancer from agent orange exposure in [place] per pt. Mother Family Medical History: Congestive Heart Failure (CHF), COPD, Myocardial Infarction (AZ) Additional Family Medical History / Comment(s): Mother had a AZ at the age of 60 yrs. She is 67yrs old. Medications and Allergies Home Medications Medication Instructions Recorded Confirmed Type Atorvastatin [Lipitor] 10 mg PO DAILY 01/22/20 12/28/22 History Fluticasone Propion/Salmeterol 1 puff INHALATION RT-BID 04/28/21 12/28/22 History [Advair Hfa 230-21 Mcg Inhaler] carvediloL [Coreg] 6.25 mg PO BID 04/28/21 12/28/22 History lisinopriL 30 mg PO DAILY 04/28/21 12/28/22 History Tiotropium 2.5 Mcg/Puff [Spiriva 2 puff INHALATION RT-DAILY 12/28/22 12/28/22 History Respimat 2.5 Mcg] Aspirin 81 mg PO DAILY #20 tab 12/29/22 Rx Pantoprazole Sodium [Protonix] 40 mg PO DAILY #20 tab 12/29/22 Rx Allergies Allergy/AdvReac Type Severity Reaction Status Date / Time No Known Allergies Allergy Verified 12/28/22 13:40 Physical Exam Vitals: Vital Signs Temp Pulse Pulse Pulse Resp BP BP 12/29/22 12:22 74 12/29/22 12:13 72 12/29/22 10:29 169/99 12/29/22 09:14 16 12/29/22 08:53 80 12/29/22 08:43 80 12/29/22 07:00 97.6 F 78 16 186/116 12/29/22 06:52 173/107 12/29/22 06:15 83 12/29/22 02:27 97.8 F 102 H 12/28/22 19:41 98.6 F 107 H 12/28/22 18:20 110 H 16 12/28/22 16:54 97.6 F 88 16 12/28/22 16:07 65 16 165/87 12/28/22 15:30 87 19 157/91 12/28/22 15:20 90 26 H 157/91 12/28/22 15:18 65 16 151/97 12/28/22 15:10 86 16 157/91 12/28/22 15:00 89 52 H 182/112 12/28/22 14:50 78 23 179/111 12/28/22 14:40 178/105 12/28/22 14:30 178/105 12/28/22 14:20 78 26 H 178/105 12/28/22 14:10 80 29 H 178/105 12/28/22 14:09 78 20 178/105 12/28/22 14:00 77 23 160/105 12/28/22 13:50 79 23 160/105 12/28/22 13:40 82 23 160/105 12/28/22 13:30 84 22 159/91 12/28/22 13:20 81 18 159/91 12/28/22 13:10 83 47 H 159/91 12/28/22 13:02 65 16 157/95 12/28/22 13:00 84 12 157/95 12/28/22 12:50 87 20 157/95 BP Pulse Ox 12/29/22 12:22 12/29/22 12:13 12/29/22 10:29 12/29/22 09:14 12/29/22 08:53 12/29/22 08:43 96 12/29/22 07:00 96 12/29/22 06:52 166/109 12/29/22 06:15 175/110 12/29/22 02:27 117/71 94 L 12/28/22 19:41 106/72 94 L 12/28/22 18:20 116/72 95 12/28/22 16:54 117/67 96 12/28/22 16:07 98 12/28/22 15:30 96 12/28/22 15:20 96 12/28/22 15:18 98 12/28/22 15:10 97 12/28/22 15:00 97 12/28/22 14:50 95 12/28/22 14:40 12/28/22 14:30 12/28/22 14:20 96 12/28/22 14:10 94 L 12/28/22 14:09 95 12/28/22 14:00 96 12/28/22 13:50 95 12/28/22 13:40 94 L 12/28/22 13:30 96 12/28/22 13:20 95 12/28/22 13:10 95 12/28/22 13:02 98 12/28/22 13:00 95 12/28/22 12:50 95 Intake and Output 12/28/22 12/29/22 12/29/22 22:59 06:59 14:59 Intake Total 118 118 Balance 118 118 Intake: Oral 118 118 Other: Voiding Method Toilet # Voids 1 2 PHYSICAL EXAMINATION: This is a 52-year-old female in no apparent distress at the time of my examination. HEENT: Head is atraumatic, normocephalic. Pupils are equal, round. Sclerae anicteric. Conjunctivae are clear. Mucous membranes of the mouth are moist. Neck is supple. There is no elevated jugular venous pressure. No carotid bruit is heard. CHEST EXAMINATION: Lung sounds diminished bilaterally. No wheezes rales or rhonchi. Respirations even and nonlabored. HEART EXAMINATION: Heart regular, positive S1 and S2. No S3. No S4. Soft systolic murmur at the base. ABDOMEN: Soft, nontender. Bowel sounds are heard. No organomegaly noted. EXTREMITIES: 2+ peripheral pulses with no evidence of peripheral edema and no calf tenderness noted. NEUROLOGIC EXAMINATION: Patient is awake, alert and oriented x3. Results 12/29/22 06:05 12/29/22 06:05 Cardiac Enzymes 12/28/22 12/28/22 12/28/22 Range/Units 12:01 15:00 18:51 Troponin I <0.012 <0.012 <0.012 (0.000-0.034) ng/mL CBC 12/29/22 Range/Units 06:05 WBC 5.74 (4.50-10.00) X 10*3/uL RBC 4.49 (4.10-5.20) X 10*6/uL Hgb 13.8 (12.0-15.0) d/dL Hct 42.0 (37.2-46.3) % Plt Count 208 (140-440) X 10*3/uL Comprehensive Metabolic Panel 12/29/22 Range/Units 06:05 Sodium 142 (135-145) mmol/L Potassium 4.1 (3.5-5.5) mmol/L Chloride 106 (96-109) mmol/L Carbon Dioxide 23.3 (21.6-31.8) mmol/L BUN 15.6 (9.0-27.0) mg/dL Creatinine 0.7 (0.6-1.5) mg/dL Glucose 104 (70-110) mg/dL Calcium 9.3 (8.7-10.3) mg/dL Current Medications Generic Name Dose Route Start Last Admin Trade Name Freq PRN Reason Stop Dose Admin Acetaminophen 650 mg 12/28/22 14:02 Acetaminophen Tab 325 Mg Tab PO Q6HR PRN Mild Pain or Fever > 100.5 Aspirin 81 mg 12/29/22 09:00 12/29/22 09:14 Aspirin 81 Mg PO 81 mg DAILY KRISTINA Administration Atorvastatin Calcium 10 mg 12/29/22 09:00 12/29/22 09:14 Atorvastatin 10 Mg Tab PO 10 mg DAILY KRISTINA Administration Budesonide/Formoterol Fumarate 2 puff 12/28/22 20:00 12/29/22 08:40 Symbicort 160-4.5 Mcg Inhaler INHALATION 2 puff RT-BID KRISTINA Administration Carvedilol 12.5 mg 12/29/22 17:30 Carvedilol 12.5 Mg Tab PO BID-W/MEALS [facility] Ipratropium [place] 0.5 mg 12/29/22 08:00 12/29/22 12:12 Ipratropium 0.5 Mg/2.5 Ml Nebu INHALATION 0.5 mg RT-QID KRISTINA Administration Lisinopril 40 mg 12/30/22 09:00 Lisinopril 20 Mg Tab PO DAILY KRISTINA Morphine Sulfate 4 mg 12/28/22 14:02 Morphine Sulfate 4 Mg/Ml Syringe IV Q4HR PRN Severe Pain (Scale 7 to 10) Naloxone HCl 0.2 mg 12/28/22 14:02 Naloxone 0.4 Mg/Ml 1 Ml Vial IV Q2M PRN Opioid Reversal Ondansetron HCl 4 mg 12/28/22 14:02 Ondansetron 4 Mg/2 Ml Vial IVP Q8HR PRN Nausea And Vomiting Pantoprazole Sodium 40 mg 12/29/22 09:00 12/29/22 09:14 Pantoprazole 40 Mg/10 Ml Vial IV 40 mg DAILY KRISTINA Administration Intake and Output 12/28/22 12/29/22 12/29/22 22:59 06:59 14:59 Intake Total 118 118 Balance 118 118 Intake: Oral 118 118 Other: Voiding Method Toilet # Voids 1 2 12/29/22 06:05 12/29/22 06:05 EKG Interpretations (text) Sinus rhythm Assessment and Plan Assessment: #1 symptoms of chest tightness, troponins negative 3 and EKG unremarkable #2 nonischemic cardiomyopathy #3 ventricular fibrillation in 2019 with questionable drug overdose at that time #4 prior cocaine abuse #5 prior alcohol abuse, currently drinking 2 beers a day #6 uncontrolled hypertension #7 hyperlipidemia Plan: From cardiology's perspective will increase lisinopril to 40 mg daily. Will increase carvedilol to 12.5 mg by mouth twice a day. We'll repeat echocardiogram to assess for decompensation of cardiomyopathy. Discussed with the patient importance of alcohol cessation. We will continue to follow the patient and provide further recommendations accordingly. BLOCK PILER note has been reviewed, I agree with a documented findings and plan of care. Patient was seen and examined.
--- NOTE | 2022-12-29 15:17 | CA ---
Transthoracic Echo Report Name: Elizabeth Snow Age: 52 Gender: F : 1970 Exam Date: 12/29/2022 10:36 Exam Location: [facility] Ht (in): 60 Wt (lb): 190 Ordering Physician: Franchesca Cherry Attending/Referring Phys: [id number], Dilip Patient Appointment Coordinator Rosalba Yoder [facility] Procedure CPT: Indications: chest tightness, nonischemic cardiomyopathy Cardiac Hx: Technical Quality: Fair Contrast 1: Total Dose (mL): Contrast 2: Total Dose (mL): MEASUREMENTS (Male / Female) Normal Values 2D ECHO LV Diastolic Diameter PLAX 4.7 cm 4.2 - 5.9 / 3.9 - 5.3 cm LV Systolic Diameter PLAX 3.4 cm IVS Diastolic Thickness 1.0 cm 0.6 - 1.0 / 0.6 - 0.9 cm LVPW Diastolic Thickness 0.7 cm 0.6 - 1.0 / 0.6 - 0.9 cm LV Relative Wall Thickness 0.4 LVOT Diameter 2.0 cm M-MODE Aortic Root Diameter MM 2.4 cm LA Systolic Diameter MM 3.5 cm LA Ao Ratio MM 1.4 AV Cusp Separation MM 1.3 cm DOPPLER AV Peak Velocity 196.3 cm/s AV Peak Gradient 15.4 mmHg AV Mean Velocity 142.5 cm/s AV Mean Gradient 9.0 mmHg AV Velocity Time Integral 38.2 cm LVOT Peak Velocity 134.5 cm/s LVOT Peak Gradient 7.2 mmHg LVOT Velocity Time Integral 24.6 cm LVOT Stroke Volume 78.4 cm??? LVOT Stroke Volume Index 42.9 ml/m??? LVOT Cardiac Index 3649.3 cm???/min???m??? AV Area Cont Eq vti 2.0 cm??? AV Area Cont Eq pk 2.2 cm??? Mitral E Point Velocity 76.7 cm/s Mitral A Point Velocity 102.7 cm/s Mitral E to A Ratio 0.7 MV Deceleration Time 190.6 ms LV E' Lateral Velocity 10.9 cm/s Mitral E to LV E' Lateral Ratio 7.0 LV E' Septal Velocity 7.6 cm/s Mitral E to LV E' Septal Ratio 10.1 Right Atrial Pressure 8.0 mmHg FINDINGS Left Ventricle Left ventricular wall thickness normal. Left ventricular cavity size normal. Left ventricular ejection fraction is estimated at 45-50 %. [place] hypokinetic. Apical anterior and apical septal wall is hypokinetic. Right Ventricle Normal right ventricular size and function. Right Atrium Normal right atrial size. Left Atrium Normal left atrial size. Mitral Valve Structurally normal mitral valve. Mild mitral regurgitation. Aortic Valve Aortic valve not well visualized. Aortic valve sclerosis. No aortic regurgitation. Diffuse thickening of the aortic valve cusps . Tricuspid Valve Structurally normal tricuspid valve. No tricuspid regurgitation. Pulmonic Valve Pulmonic valve not well visualized. Pericardium No pericardial effusion. Aorta Normal size aortic root. CONCLUSIONS 1. Mildly impaired left ventricle systolic function with segmental wall motion abnormality 2. Mild mitral regurgitation 3. Aortic sclerosis with no evidence of stenosis Previewed by: Dr. Tamir Timmons MD (Electronically Signed) Final Date: 29 December 2022 15:16
[2022-12-29] MEDS ORDERED: hydrALAZINE HCL 20 MG/ML 1 ML VIAL IVP PRN (15:42)
[2022-12-29 15:44] VITALS: TEMP 98
[2022-12-29] MEDS ORDERED: amLODIPine 10 MG TAB PO STA (15:47)
[2022-12-29] MEDS ORDERED: ALPRAZolam 0.25 MG TAB PO STA (15:49)
[2022-12-29 17:10] VITALS: BP 168/98; PULSE 102
[2022-12-29] MEDS ORDERED: carvediloL 12.5 MG TAB PO SCH (17:30)
[2022-12-29] MEDS ORDERED: TEMAZEPAM 15 MG CAP PO PRN (17:40)
--- NOTE | 2022-12-29 21:09 | PN ---
PROGRESS NOTE DATE OF SERVICE: 12/29/2022 SUBJECTIVE: This is a 52-year-old woman who was admitted with chest pain, also had hypertension. The blood pressure is elevated. No chest pain, no palpitations, no fever. OBJECTIVE: VITAL SIGNS: Pulse is 102, blood pressure is 174/100. HEENT: Conjunctivae normal. NECK: No jugular venous distention. CARDIOVASCULAR: S1, S2. RESPIRATIONS: Diminished. ABDOMEN: Soft. NERVOUS SYSTEM: No focal deficits. LABORATORY DATA: Reviewed. ASSESSMENT: 1. Chest pain, possible unstable angina. 2. Hypertension and accelerated hypertension. 3. History of cardiac arrest and CAD. 4. Chronic obstructive pulmonary disease. 5. Multiple complex medical issues. RECOMMENDATIONS: Recommended to continue current management and continue symptomatic treatment. Otherwise, I would adjust blood pressure medications, closely follow with Cardiology, hydralazine p.r.n. Add Norvasc to the current regimen. The patient needs more than 2 nights hospital stay for treatment evaluation for the above-mentioned multiple complex medical issues. Recommended full admission, see orders. MMODL / IJN: [id number] /
[2022-12-29] MEDS ORDERED: ALPRAZolam 0.25 MG TAB PO SCH (22:00)
[2022-12-30] MEDS ORDERED: lisinopriL 20 MG TAB PO SCH (09:00)
[2022-12-30] MEDS ORDERED: amLODIPine 10 MG TAB PO SCH (09:00)
== END 2022-12-29 18:15 | disposition left against medical advice (07) | DRG 302 ==
LOC: EC 11:46 → 6NMEDSUR 14:02 → OBSVTOIN 12-29 17:25 → UNDODISOB 12-29 18:15
PROVIDERS: ADMIT Hospitalist; ATTEND Hospitalist
DX: I25.110 Atherosclerotic heart disease of native coronary artery with unstable angina pectoris (principal); J18.9 Pneumonia, unspecified organism; I42.9 Cardiomyopathy, unspecified; I10 Essential (primary) hypertension; F10.11 Alcohol abuse, in remission; F14.11 Cocaine abuse, in remission; E78.5 Hyperlipidemia, unspecified; Z53.29 Procedure and treatment not carried out because of patient's decision for other reasons; Z86.74 Personal history of sudden cardiac arrest; Z87.891 Personal history of nicotine dependence; Z79.899 Other long term (current) drug therapy; Z79.51 Long term (current) use of inhaled steroids; Z80.9 Family history of malignant neoplasm, unspecified; Z82.49 Family history of ischemic heart disease and other diseases of the circulatory system; Z82.5 Family history of asthma and other chronic lower respiratory diseases
CPT/HCPCS: 36415; 71275; 74174; 80048; 80053; 83735; 83880; 84484; 85025; 85610; 85730; 93005; 93306; 94640; 94760; 96374; 96375; 96376; 99285